=== PATIENT | female | born 1960 | race Hispanic/Latino ===

== ENCOUNTER 2018-01-07 11:49 | Inpatient (IN) | payer OTHER ==
[2018-01-07 13:00] LABS: Absolute Lymphocytes (CBC) 1.2 K/uL (0.7-4.9); Absolute Monocytes 0.7 K/uL (0.1-1.3); Absolute Neutrophil 10.3 K/uL (1.8-8.0); Basophils % 0.4 % (0-1.3); Eosinophils % 0.8 % (0-4.4); Lymphocytes % 9.4 % (15.3-44.8); MCV 105.8 fL (80-100); MPV 6.8 fL (7.6-11.3); Monocytes % 5.6 % (3.3-12.3); RBC Red Blood Cell Count 2.37 M/uL (3.86-4.86)
[2018-01-07 13:06] LABS: Protime INR 1.23
--- NOTE | 2018-01-07 13:09 | RAD REPORT ---
EXAM DESCRIPTION: RAD - Chest Single View - 01/07/2018 12:54 pm CLINICAL HISTORY: Two week history of shortness of breath COMPARISON: None. TECHNIQUE: AP portable chest image was obtained 1249 hours . FINDINGS: Lungs are clear. Heart and vasculature are normal. No measurable pleural effusion and no p neumothorax. No gross bony abnormality seen. No acute aortic findings suspected. IMPRESSION: No acute cardiopulmonary process.
[2018-01-07 13:26] LABS: ALT/SGPT 14 U/L (12-78); AST/SGOT 17 U/L (15-37); Alkaline Phosphatase 96 U/L (45-117); BUN Blood Urea Nitrogen 47 mg/dL (7-18); Bilirubin Direct < 0.1 mg/dL (0-0.2); Bilirubin Total 0.8 mg/dL (0.2-1.0); Creatine Phosphokinase 49 U/L (26-192); Glucose Level 102 mg/dL (74-106); Magnesium 2.5 mg/dL (1.8-2.4); NT PRO-BNP 4718 pg/mL (<125); Potassium 4.4 mmol/L (3.5-5.1); Protein, Total 7.7 g/dL (6.4-8.2); Sodium Level 139 mmol/L (136-145); Troponin (Emerg Dept Use Only) < 0.02 ng/mL (0.0-0.045)
[2018-01-07 13:38] LABS: Bicarbonate 9 mmol/L (21-32)
[2018-01-07] MEDS ORDERED: MORPHINE 4 MG/ML SYR ONE (13:59)
[2018-01-07] MEDS ORDERED: ONDANSETRON 4 MG/2 ML VIAL ONE (13:59)
[2018-01-07] MEDS ORDERED: NA CHLORIDE 0.9% 500 ML ONE (14:45)
--- NOTE | 2018-01-07 14:47 | EDPHYS ---
Physician Documentation [facility] Name: Trixie Richardson Age: 57 yrs Sex: Female : 1960 Arrival Date: 01/07/2018 Time: 11:53 Bed 7 Private MD: None, None ED Physician Eugenio Siegel HPI: 01/07 12:19 This 57 yrs old Female presents to ER via Wheelchair with complaints of ma2 Shortness Of Breath, Nausea, Back Pain. 12:19 The patient has shortness of breath at rest. Onset: The symptoms/episode began/occurred ma2 gradually, 4 week(s) ago. Duration: The symptoms are continuous. The patient's shortness of breath is aggravated by coughing, is alleviated by. Associated signs and symptoms: Pertinent negatives:. Severity of symptoms: At their worst the symptoms were severe Pain is currently a 10 / 10. The patient has not experienced similar symptoms in the past. hx of HTN here with sob and chest pain that radiate to back, getting worse, . Historical: - Allergies: 11:56 Codeine; la1 - PMHx: 11:56 Hypertension; la1 - PSHx: 11:57 ; right knee; la1 - Immunization history:: Adult Immunizations up to date. - Social history:: Smoking status: Patient uses tobacco products, denies chronic smoking, but will smoke occasionally, Patient/guardian denies using alcohol, street drugs, The patient lives with family. - Ebola Screening: : No symptoms or risks identified at this time. - Family history:: not pertinent. - Hospitalizations: : No recent hospitalization is reported. ROS: 12:19 Constitutional: Negative for fever, chills, and weight loss, Eyes: Negative for injury, ma2 pain, redness, and discharge. 12:36 Constitutional: Positive for Negative for ma2 12:36 Eyes: Negative for acute changes. 12:36 Neck: Negative for injury or acute deformity, mass, rash, swollen nodes, bony tenderness. 12:36 Cardiovascular: Positive for chest pain, sob, Negative for edema, palpitations. 12:36 Cardiovascular: Positive for 12:36 Respiratory: Positive for Negative for cough, dyspnea on exertion, pleurisy, sputum production, acute changes. 12:36 All other systems are negative. Exam: 12:36 Constitutional: This is a well developed, well nourished patient who is awake, alert, ma2 and in no acute distress. Head/Face: Normocephalic, atraumatic. Chest/axilla: Normal chest wall appearance and motion. Nontender with no deformity. No lesions are appreciated. Cardiovascular: Regular rate and rhythm with a normal S1 and S2. No gallops, murmurs, or rubs. Normal PMI, no JVD. No pulse deficits. Respiratory: Lungs have equal breath sounds bilaterally, clear to auscultation and percussion. No rales, rhonchi or wheezes noted. No increased work of breathing, no retractions or nasal flaring. Abdomen/GI: Soft, non-tender, with normal bowel sounds. No distension or tympany. No guarding or rebound. No evidence of tenderness throughout. MS/ Extremity: Pulses equal, no cyanosis. Neurovascular intact. Full, normal range of motion. Neuro: Awake and alert, GCS 15, oriented to person, place, time, and situation. Cranial nerves II-XII grossly intact. Motor strength 5/5 in all extremities. Sensory grossly intact. Cerebellar exam normal. Normal gait. 12:36 Constitutional: The patient appears alert, in obvious pain. Vital Signs: 11:56 BP 147 / 74; Pulse 101; Resp 22; Temp 98.3; Pulse Ox 99% on R/A; Weight 53.52 kg; la1 Height 5 ft. 1 in. (154.94 cm); 13:01 BP 146 / 77; Pulse 82; Resp 20; Pulse Ox 100% on 2 lpm NC; aj 14:37 BP 137 / 74; Pulse 97; Resp 26; Pulse Ox 100% on R/A; aj 15:00 BP 129 / 75; Pulse 79; Resp 16 S; Pulse Ox 100% on R/A; jl7 15:30 BP 137 / 76; Pulse 82; Resp 16 S; Pulse Ox 100% on R/A; jl7 16:00 BP 125 / 67; Pulse 83; Resp 16 S; Pulse Ox 100% on R/A; jl7 16:25 BP 120 / 65; Pulse 89; Resp 16 S; Pulse Ox 100% on R/A; jl7 11:56 Body Mass Index 22.30 (53.52 kg, 154.94 cm) la1 MDM: 11:58 Patient medically screened. ma2 12:36 Differential diagnosis: Anemia CHF exacerbation, Myocardial Infarction Pneumothorax ma2 pulmonary edema, Pulmonary Embolism Unstable Angina. 14:41 Data reviewed: vital signs, nurses notes, lab test result(s), radiologic studies. ma2 Counseling: I had a detailed discussion with the patient and/or guardian regarding: the historical points, exam findings, and any diagnostic results supporting the discharge/admit diagnosis, the presence of at least one elevated blood pressure reading (>120/80) during this emergency department visit, the need for outpatient follow up. Response to treatment: the patient's symptoms have markedly improved after treatment. ED course: has ARF, CXR unremarkable not volume overloaded VS wnl, will admit to hospitalist discussed with air brake adjuster Dr. Villeda and she will see her tomorrow, she recommends IVF NS \T\ 50 cc/h. 01/07 12:28 Order name: Basic Metabolic Panel; Complete Time: 14:04 [facility] 01/07 14:29 Interpretation: Abnormal. [facility] 01/07 12:28 Order name: CBC with Diff; Complete Time: 14:04 [facility] 01/07 12:28 Order name: Ckmb; Complete Time: 14:04 [facility] 01/07 12:28 Order name: CPK; Complete Time: 14:04 [facility] 01/07 12:28 Order name: LFT's; Complete Time: 14:04 [facility] 01/07 12:28 Order name: Magnesium; Complete Time: 14:04 [facility] 01/07 12:28 Order name: NT PRO-BNP; Complete Time: 14:04 [facility] 01/07 12:28 Order name: PT-INR; Complete Time: 14:04 [facility] 01/07 12:28 Order name: Ptt, Activated; Complete Time: 14:04 [facility] 01/07 12:28 Order name: Troponin (emerg Dept Use Only); Complete Time: 14:04 [facility] 01/07 12:28 Order name: XRAY Chest (1 view); Complete Time: 14:04 [facility] 01/07 14:11 Order name: Thorax Wo Con; Complete Time: 15:28 EDMS 01/07 12:28 Order name: EKG; Complete Time: 12:29 [facility] 01/07 12:28 Order name: Cardiac monitoring; Complete Time: 12:31 mi2 09/16 12:28 Order name: EKG - Nurse/Tech; Complete Time: 14:42 [facility] 01/07 12:28 Order name: IV Saline Lock; Complete Time: 14:03 [facility] 01/07 12:28 Order name: Labs collected and sent; Complete Time: 14:03 [facility] 01/07 12:28 Order name: O2 Per Protocol; Complete Time: 12:31 [facility] 01/07 12:28 Order name: O2 Sat Monitoring; Complete Time: 12:31 mi2 Administered Medications: 13:58 Drug: morphine 4 mg Route: IVP; Site: right antecubital; aj 16:27 Follow up: Response: Pain is decreased aj 13:58 Drug: Zofran 4 mg Route: IVP; Site: right antecubital; aj 16:27 Follow up: Response: Nausea is decreased aj 14:45 Drug: NS 0.9% 1000 ml Route: IV; Rate: 50 ml/hr; Site: right antecubital; Disposition: 01/07/18 14:46 Hospitalization ordered by Damien Perez for Inpatient Admission. Preliminary diagnosis is Acute kidney failure. - Bed requested for Telemetry/MedSurg (Inpatient). - Status is Inpatient Admission. aj - Condition is Stable. - Problem is new. - Symptoms are unchanged. UTI on Admission? No Signatures: Dispatcher [employer] Kathe Cartagena RN RN aj Attema, Lee, RN RN la1 Gallardo, Ana ag Alzahri, Mohammad, MD MD ma2 Corrections: (The following items were deleted from the chart) 14:11 12:29 Chest Angio+CT.RAD.BRZ ordered. [facility] 14:11 12:29 Neck Angio+CT.RAD.BRZ ordered. [facility] 17:05 14:46 Hospitalization Ordered by Damien Perez MD for Inpatient Admission. Preliminary ag diagnosis is Acute kidney failure. Bed requested for Telemetry/MedSurg (Inpatient). Status is Inpatient Admission. Condition is Stable. Problem is new. Symptoms are unchanged. UTI on Admission? No. ma2 18:07 17:05 01/07/2018 14:46 Hospitalization Ordered by Damien Perez MD for Inpatient aj Admission. Preliminary diagnosis is Acute kidney failure. Bed requested for Telemetry/MedSurg (Inpatient). Status is Inpatient Admission. Condition is Stable. Problem is new. Symptoms are unchanged. UTI on Admission? No. ag
--- NOTE | 2018-01-07 14:47 | ER ---
Nurse's Notes [facility] Name: Trixie Richardson Age: 57 yrs Sex: Female : 1960 Arrival Date: 01/07/2018 Time: 11:53 Bed 7 Private MD: None, None Diagnosis: Acute kidney failure Presentation: 01/07 11:55 Presenting complaint: Patient states: SOB of breath for the last 2 weeks and upper back la1 pain for about 1.5 months, pt tachypneic in triage. Transition of care: patient was not received from another setting of care. Onset of symptoms was January 07, 2018. Risk Assessment: Do you want to hurt yourself or someone else? Patient reports no desire to harm self or others. Initial Sepsis Screen: Does the patient meet any 2 criteria? Yes Does the patient have a suspected source of infection? No. Patient's initial sepsis screen is negative. Care prior to arrival: None. 11:55 Method Of Arrival: Wheelchair la1 11:55 Acuity: CLEMENTE 3 la1 Historical: - Allergies: 11:56 Codeine; la1 - PMHx: 11:56 Hypertension; la1 - PSHx: 11:57 ; right knee; la1 - Immunization history:: Adult Immunizations up to date. - Social history:: Smoking status: Patient uses tobacco products, denies chronic smoking, but will smoke occasionally, Patient/guardian denies using alcohol, street drugs, The patient lives with family. - Ebola Screening: : No symptoms or risks identified at this time. - Family history:: not pertinent. - Hospitalizations: : No recent hospitalization is reported. Screenin:08 Abuse screen: Denies threats or abuse. Denies injuries from another. Nutritional aj screening: No deficits noted. Tuberculosis screening: No symptoms or risk factors identified. Fall Risk None identified. Assessment: 12:05 General: Appears in no apparent distress. uncomfortable, Behavior is calm, cooperative, aj appropriate for age. Pain: Complains of pain in left mid back. Neuro: Level of Consciousness is awake, alert, obeys commands, Oriented to person, place, time, situation, Appropriate for age. Cardiovascular: Capillary refill < 3 seconds in bilateral fingers Patient's skin is warm and dry. Rhythm is regular. Respiratory: Airway is patent Respiratory effort is even, labored, Respiratory pattern is symmetrical, tachypnea Breath sounds are clear bilaterally. the patient has moderate shortness of breath. Derm: Skin is intact, is healthy with good turgor, Skin is pink, warm \T\ dry. normal. 14:00 Reassessment: Patient appears in no apparent distress at this time. No changes from aj previously documented assessment. Patient and/or family updated on plan of care and expected duration. Pain level reassessed. Patient is alert, oriented x 3, equal unlabored respirations, skin warm/dry/pink. Patient states feeling better. Patient states symptoms have improved. 16:30 Reassessment: Patient appears in no apparent distress at this time. No changes from aj previously documented assessment. Patient and/or family updated on plan of care and expected duration. Pain level reassessed. Patient is alert, oriented x 3, equal unlabored respirations, skin warm/dry/pink. Patient resting comfortably in bed with eyes closed. 17:38 Reassessment: Patient appears in no apparent distress at this time. No changes from aj previously documented assessment. Patient and/or family updated on plan of care and expected duration. Pain level reassessed. Patient is alert, oriented x 3, equal unlabored respirations, skin warm/dry/pink. Resting comfortably in bed, provided with meal tray. Patient states feeling better. Patient states symptoms have improved. Vital Signs: 11:56 BP 147 / 74; Pulse 101; Resp 22; Temp 98.3; Pulse Ox 99% on R/A; Weight 53.52 kg; la1 Height 5 ft. 1 in. (154.94 cm); 13:01 BP 146 / 77; Pulse 82; Resp 20; Pulse Ox 100% on 2 lpm NC; aj 14:37 BP 137 / 74; Pulse 97; Resp 26; Pulse Ox 100% on R/A; aj 15:00 BP 129 / 75; Pulse 79; Resp 16 S; Pulse Ox 100% on R/A; jl7 15:30 BP 137 / 76; Pulse 82; Resp 16 S; Pulse Ox 100% on R/A; jl7 16:00 BP 125 / 67; Pulse 83; Resp 16 S; Pulse Ox 100% on R/A; jl7 16:25 BP 120 / 65; Pulse 89; Resp 16 S; Pulse Ox 100% on R/A; jl7 11:56 Body Mass Index 22.30 (53.52 kg, 154.94 cm) la1 ED Course: 11:53 Patient arrived in ED. mr 11:54 None, None is Private Physician. mr 11:56 Triage completed. la1 11:57 Arm band placed on right wrist. la1 11:58 Eugenio Siegel MD is Attending Physician. ma2 12:05 Kathe Nguyen RN is Primary Nurse. aj 12:08 Patient has correct armband on for positive identification. Placed in gown. Bed in low aj position. Call light in reach. Side rails up X 1. Adult w/ patient. Pulse ox on. NIBP on. 12:31 Oxygen administration via nasal cannula \T\ 2L/min Response to oxygen therapy: symptoms aj improved. 12:46 Inserted saline lock: 18 gauge in right antecubital area, using aseptic technique. mb4 Blood collected. 12:53 sent to lab. mb4 12:54 X-ray completed. Portable x-ray completed in exam room. Patient tolerated procedure tm4 poorly. 12:54 XRAY Chest (1 view) In Process Unspecified. EDMS 13:29 Note: Per Dr. Siegel does not want to wait on radiology labs. sj 14:14 Thorax Wo Con In Process Unspecified. EDMS 14:43 EKG done, by ED staff, reviewed by Eugenio Siegel MD. jl7 14:44 Damien Perez MD is Hospitalizing Provider. ma2 17:15 Diet tray given. mb4 17:45 Report given to Tootie GO. aj 18:06 No provider procedures requiring assistance completed. Patient admitted, IV remains in aj place. Administered Medications: 13:58 Drug: morphine 4 mg Route: IVP; Site: right antecubital; aj 16:27 Follow up: Response: Pain is decreased aj 13:58 Drug: Zofran 4 mg Route: IVP; Site: right antecubital; aj 16:27 Follow up: Response: Nausea is decreased aj 14:45 Drug: NS 0.9% 1000 ml Route: IV; Rate: 50 ml/hr; Site: right antecubital; aj Outcome: 14:46 Decision to Hospitalize by Provider. ma2 18:06 Admitted to Med/surg accompanied by nurse, via wheelchair, room 218, with chart, Report aj called to Tootie 18:06 Condition: good 18:06 Instructed on the need for admit. 18:07 Patient left the ED. aj Signatures: Dispatcher [employer] Kathe Ochoa RN RN aj Rivera, Maria mr Jones, Alesha Vieyra4 Guanakito Santos RN RN la1 Karina Marshall RN RN jl7 Eugenio Siegel MD MD ma2 Ewelina Crum 4
--- NOTE | 2018-01-07 15:03 | RAD REPORT ---
EXAM DESCRIPTION: CT - Thorax Wo Con - 01/07/2018 2:14 pm CLINICAL HISTORY: Shortness of breath, back pain, possible dissection COMPARISON: None. TECHNIQUE: Axial 5 mm thick images of the neck and chest were obtained without IV contrast. Contrast was withheld due to abnormal renal function All CT scans are performed using dose optimization technique as appropriate and may include automated exposure control or mA/KV adjustment according to patient size. FINDINGS: No suspicious mass and no infiltrate of the lung parenchyma. There is a trace amount of st randing in the posterior gutter on the left. No pleural effusion and no pneumothorax. No abnormal mediastinal or hilar masses or lymphadenopathy seen. No gross aortic or pulmonary artery finding suspected. No pericardial thickening or effusion. In the anterior left chest, there is a 5 x 3 centimeter chest wall soft tissue mass that involves the chest wall and anterior left sixth rib. No other rib lesion or chest wall mass identifiable. No axil poncho lymphadenopathy. No mass or suspicious finding in the breast tissue. Imaging extended into the neck. No mass or abnormal lymphadenopathy. No suspicious soft tissue findin g. IMPRESSION: Approximately 3 x 5 centimeter soft tissue mass involving the left anterior chest wall a nd anterior left sixth rib. This has the appearance of a malignant mass, most likely metastatic. No other mass, lymphadenopathy or suspicious finding on noncontrast imaging of the neck and chest.
[2018-01-07] MEDS ORDERED: ONDANSETRON 4 MG/2 ML VIAL IV PRN (16:00)
[2018-01-07] MEDS: D5W 1,000 ML with NA BICARB 8.4% 100 MEQ IV SCH ×2 (18:27)
[2018-01-07] MEDS: MORPHINE 2 MG/ML SYR IV PRN (18:43)
[2018-01-07] MEDS: CARVEDILOL 6.25 MG TAB PO SCH (21:22)
[2018-01-07] MEDS: LORazepam 2 MG/ML VIAL IV PRN ×2 (21:30→21:32)
--- NOTE | 2018-01-08 04:46 | HP ---
Date of Admission: 01/07/2018 Primary Care Physician: None. Chief Complaint: Pain in her ribs. History Of Present Illness: The patient is a 57-year-old female with past medical history of hyperte nsion, on Coreg, comes in with shortness of breath, chest wall pain, seen by Dr. Steele, found to have a boil and now appearing with severe pain, not able to get comfortable. The patient was given Tylen ol No. 3 with Codeine, which is not working. The patient also is having difficulty taking deep breat hs. The patient's symptoms are constant, moderately progressive, and nonradiating. The patient sylvia es any recent trauma. The patient also had a mammogram done on 12/13/2017, which was negative for an y breast masses. The patient comes into the ER. Her workup shows acidosis, bicarb is 9, the creatin ine is elevated at 3.6. White blood cell count is 12.3. The patient does report taking multiple NSA IDs for the past week or so due to her pain. Imaging studies including CT of the chest, showed a 5 x 3 cm chest soft tissue mass involving the anterior left chest and left sixth rib, most likely metast atic malignant mass. Neck imaging was also done, which showed lymphadenopathy, but no mass. [facility] was then referred for admission. Past Medical History: Hypertension. Past Surgical History: , knee surgery. Medications: Coreg. Allergies: NO KNOWN DRUG ALLERGIES. Family History: Breast cancer, cirrhosis of the liver, [place]. Social History: The patient used to smoke 2 to 4 cigarettes per day for the past 20 years. Quit [employer] 2 weeks ago. Alcohol, the patient drinks 3 beers per day. Has been drinking for a significant amount of time. The patient is . No illicit drug use. Review of Systems: An 11-point system reviewed, negative except as per HPI. Physical Examination: Vital Signs: Blood pressure 147/74, pulse 101, respirations 22, temperature 98.3, O2 99% on room air . General: Awake, alert, oriented x3. Some mild distress, appears older than stated age female. HEENT: Normocephalic atraumatic. PERRLA. EOMI. Dry mucous membranes. Oropharynx is clear. Poor dentition. Neck: Supple. No JVD. Trachea midline. CV: S1, S2. No murmurs. Regular rate and rhythm. Peripheral pulses present. Respiratory: Diminished breath sounds. No wheezing or stridor. Gastrointestinal: Abdomen is soft, nontender, nondistended. Positive bowel sounds. No guarding or rigidity. Extremities: No clubbing, cyanosis, or edema. Neuro: Cranial nerves 2 through 12 intact grossly. No focal neurological deficit. Speech is normal . Psych: Mood is depressed. Affect is congruent with mood. Insight and judgment are fair. Imaging Studies: CT chest shows 5 x 3 cm soft tissue mass involving the left anterior chest wall and anterior left sixth rib. Appearance of a malignant mass, most likely metastatic. Chest x-ray shows no acute cardiopulmonary process. Laboratory Data: WBC 12.3, H and H 8.5 and 25, MCV 105.8, platelets 343. INR 1.23. Sodium 139, pot assium 4.4, chloride 116, CO2 9, BUN is 47, creatinine 3.6, glucose 102, calcium 8.3, magnesium 2.5. BNP 4718. Assessment And Plan: A 57-year-old female with: 1.Acute kidney injury, may be prerenal azotemia or acute tubular necrosis, recent significant NSAID use. 2.Metabolic acidosis. We will start on IV fluids with bicarb. 3.Soft tissue chest wall mass, 5 x 3 cm, likely malignant, unclear etiology. We will need biopsy an d further diagnosis. The patient had mammogram done on 12/13/2017, which was negative for any breast mass. CT of the neck showed lymphadenopathy, but no mass. 4.Nicotine dependence with cigarette smoking, recently quit. 5.Alcohol dependency. We will place on Ativan p.r.n. for withdrawal symptoms, folate, and vitamin B 12. 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 7.Essential hypertension. We will resume home medications. Plan: Admit to Med-Surg, place as an inpatient. /DAVID Voice ID: [id number]
[2018-01-08 05:21] LABS: Absolute Lymphocytes (CBC) 1.9 K/uL (0.7-4.9); Absolute Monocytes 1.3 K/uL (0.1-1.3); Absolute Neutrophil 7.9 K/uL (1.8-8.0); Basophils % 0.5 % (0-1.3); Eosinophils % 2.9 % (0-4.4); Hematocrit 22.5 % (36.0-45.0); Lymphocytes % 16.6 % (15.3-44.8); MCH 36.6 pg (27.0-35.0); MCV 106.5 fL (80-100); RBC Red Blood Cell Count 2.11 M/uL (3.86-4.86)
[2018-01-08] MEDS: D5W 1,000 ML with NA BICARB 8.4% 100 MEQ IV SCH ×4 (05:28→18:00)
[2018-01-08 06:20] LABS: Platelet Estimate ADEQ; Urine White Blood Cell Casts OK
[2018-01-08 06:21] LABS: Blood Morphology Comment NOT SEEN (NOT SEEN); Macrocytosis 1+
[2018-01-08] MEDS: ACETAMINOPHEN 500 MG TAB PO PRN (06:21)
[2018-01-08 06:23] LABS: Albumin 2.7 g/dL (3.4-5.0); Bilirubin Total 0.6 mg/dL (0.2-1.0); Folic Acid, (Folate) 8.4 ng/mL (3.1-17.5); Potassium 3.5 mmol/L (3.5-5.1); Protein, Total 6.8 g/dL (6.4-8.2)
--- NOTE | 2018-01-08 06:52 | EKG ---
Test Date: 2018-01-07 Test Time: 14:42:10 Advertising Account Representative: JACQUELYN MEASUREMENT RESULTS: Intervals: Rate: 85 MI: 114 QRSD: 78 QT: 394 QTc: 468 [place]: P: 21 MI: 114 QRS: 2 T: 34 INTERPRETIVE STATEMENTS: Normal sinus rhythm Normal ECG No previous ECG available for comparison Electronically Signed On 01-08-18 06:51:01 CDT by Angelo Cowan
[2018-01-08] MEDS: CARVEDILOL 6.25 MG TAB PO SCH ×2 (09:00→20:42)
[2018-01-08] MEDS: FOLIC ACID 1 MG TABLET PO SCH (09:00)
[2018-01-08] MEDS: THIAMINE HCL 100 MG TABLET PO SCH (09:00)
[2018-01-08] MEDS: MORPHINE 2 MG/ML SYR IV PRN ×3 (12:21→22:20)
[2018-01-08 12:43] LABS: Hematocrit 22.3 % (36.0-45.0)
--- NOTE | 2018-01-08 15:36 | CON ---
Date of Consultation: 01/08/2018 Reason: Left chest wall mass. History Of Present Illness: The patient is a 57-year-old female, who has been following as an outpat ient with the left-sided localized chest pain. In my office, on physical exam, there was some fullne ss below her left breast and some fullness in her left supraclavicular region. I decided to begin he r workup first of all with mammogram as she has not had 1 in a long time and a chest x-ray, which wer e essentially negative. Then, I had scheduled a CT of the neck and chest for the patient, however, b ecause of her anxiety and underlying issues, she did not do the CT of the neck and chest. However, s he continued to have pain, and I advised her that if I do not have a diagnosis I would not be able to treat her. So, she was advised from my office to either go to go ahead and reschedule the CAT scan o r go to her PCP for further management. Her pain got worse in the left chest wall with some shortnes s of breath, and she came to the emergency room last night and finally had the chest CT done, which s howed a mass in her left chest wall and today, I am consulted. She is awake, alert, feels a little b it better. On her workup, she has acute renal failure, significant anemia, and a mass in her left 6t h rib, which potentially could be metastatic disease. No sore throat, runny nose, cough, headaches, or dizziness. No fever or chills. She does drink every day and is a smoker. No changes in bowel meeks bits. Review of Systems: Otherwise unremarkable. Past Medical History: Hypertension and questionable history of cirrhosis. Past Surgical History: Knee surgery and . Medications: Include Coreg. Allergies: NO ALLERGIES. Social History: The patient does smoke every day, about 4 cigarettes per day. She quit 2 weeks ago, and she drinks 3-4 beers a day. Family History: Noncontributory. Review of Systems: Otherwise unremarkable. Physical Examination: Vital signs: Currently stable. She is afebrile. General: She is awake, alert, and oriented x3. Head and neck: Cranial nerves 2 through 12 grossly within normal limits. Some fullness in the left s upraclavicular region. No other masses. No JVD. Throat clear. Neck is supple. Chest: Clear. Left chest wall underneath the breast, which was examined in the office revealed a qu estionable tender mass. Heart: S1, S2. ABDOMEN: Soft. Extremities: Neurovascularly intact. Neuro: Nonfocal. Diagnostic Data: Her white count is 11.5. H and H are 7.7 and 22.5. MCV is 106.5. INR is 1.23. C hemistry shows BUN 54, creatinine of 4. She was very acidotic with CO2 of 9 on admissions. Today sh e is 15. CT of the chest reviewed with the radiologist shows a 3 x 5 cm soft tissue mass involving t he left anterior chest wall and anterior left 6th rib, appearance of a malignant mass, most likely me tastatic. Assessment: A 57-year-old female with left chest wall mass, significant anemia, acute renal insuffic iency. Recommendation: Would be to go ahead and get a nephrology consultation. I will go and order a CT of the abdomen and pelvis, See if we can find the primary if this indeed is a metastatic lesion, and I have discussed with the radiologist regarding a CT-guided biopsy of this left chest wall mass, and we will arrange for that tomorrow. Plan of care discussed in detail with the patient and the family, a nd I will contact Dr. Perez and discuss the plan with him as well. We will follow this patient while in the hospital. KINJAL/DAVID Voice ID: [id number] Report ID: [id number]
--- NOTE | 2018-01-08 17:18 | RAD REPORT ---
EXAM DESCRIPTION: CT - Abdomen Pelvis Wo Contrast - 01/08/2018 4:44 pm CLINICAL HISTORY: Chest wall mass suspicious for metastatic disease, abdominal pain COMPARISON: None. TECHNIQUE: Axial [address] imaging of the abdomen and pelvis was performed without IV contrast. No IV contrast was given because of allergy, abnormal renal function, patient refusal or physician re quest. No oral contrast was given. All CT scans are performed using dose optimization technique as appropriate and may include automated exposure control or mA/KV adjustment according to patient size. FINDINGS: Lung base findings are detailed on prior CT chest examination. Liver size is normal. Assessment is limited in the absence of IV contrast. In the posterior mid right lobe there is a 15 millimeter area of diminished attenuation. Focal lesion is possible. Mild splenom egaly is present. No pancreatic abnormality suspected on noncontrast imaging. Gallbladder is distende d. Gallstones can be occult. No biliary tree dilatation. Right kidney has a normal contour. There is a lobulated contour to the upper pole left kidney which c ould indicate cysts or possible scarring from prior ischemic or infectious insult. Significant bilate ral hydronephrosis is present, right greater than left. There is no obstructing calculus. Dilatation extends to each UVJ. There is an 8 x 6 centimeter soft tissue mass in the region of the cervix and th e vaginal vault. This appears to invade or at least at extrinsic mass effect on the bladder. This lik chiki invades or obstructs each UVJ causing the hydronephrosis. There is mild congestion and edema in t he fat adjacent to this suspected cervical carcinoma. No significant adrenal finding. Isodense renal masses and pyelonephritis cannot be excluded in the ab sence of IV contrast. No dilated bowel loops or bowel wall thickening. No free air, free fluid or inflammatory stranding. N o omental thickening. No bulky lymphadenopathy. No suspicious bony findings. IMPRESSION: Suspected cervical carcinoma. There is a large 8 x 6 centimeter mass in the cervix and d eep vaginal vault region. Mass either either invades or causes extrinsic compression of the bladder base and each UVJ. Patient has significant bilateral hydronephrosis. No ascites or omental thickening. No bulky lymphadenopathy. Lung base and chest wall findings are detailed on separate CT chest report. Full assessment is limited is the absence of IV contrast.
--- NOTE | 2018-01-08 17:21 | PN ---
Date of Progress Note: 01/08/2018 Subjective: The patient seen and examined. Chart reviewed and case discussed with RN and Dr. Steele. The patient's family at the bedside, treatment plan explained, all questions answered. She states her pain is still present, has some difficulty getting comfortable. No shortness of breath. Review of Systems: Negative except as above. Medications: List reviewed. Physical Examination: Vital Signs: Temperature 98.1, heart rate 85, blood pressure 145/67, respirations 18, O2 100% on krystal m air. General: Awake, alert, oriented x3, in some mild distress due to pain. CV: S1, S2. No murmurs. Regular rate and rhythm. Peripheral pulses present. Respiratory: Moving air well bilaterally. No wheezing. Gastrointestinal: Abdomen is soft, nontender, nondistended. Positive bowel sounds. Extremities: No clubbing, cyanosis, edema. Neurologic: Nonfocal. Skin: No rashes. Normal skin turgor. Musculoskeletal: Sixth rib anterior chest wall tenderness to palpation. Laboratory Data: Sodium 137, potassium 3.5, chloride 109, CO2 15, BUN 54, creatinine 4, glucose 96, calcium 8.2, vitamin B12 1013, folate 8.4. WBC 11.5, H and H 7.7, 22.5, platelets 282. Assessment And Plan: A 57-year-old female with: 1.Acute kidney injury secondary to possible acute tubular necrosis. Has been using significant NSAI Ds over the past week. Possible prerenal azotemia. Creatinine function is worsening. Dr. Christiana spears s on board. 2.Metabolic acidosis, improving. Continue IV fluids with bicarb. 3.Soft tissue wall mass 5 x 3 cm, likely malignant unclear primary. Biopsies have been set up for t omorrow, CT guided with Radiology. Mammogram on 12/11/2017 is negative for breast mass. CT of the c hest shows some lymphadenopathy in the neck, but no mass. May be squamous cell primary. Due to the patient's lack of outpatient followup and noncompliance we will obtain a CT of abdomen and pelvis to further investigate source of mass. The patient had refused outpatient CT of neck and chest. We anne-marie l continue pain medications. 4.Nicotine dependence with cigarette smoking, quit about 2 weeks ago. 5.Alcohol dependency. Continue Ativan p.r.n. Monitor for withdrawal symptoms. 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 Vitamin B12 and folate normal. 7.Essential hypertension. Resume home medications as appropriate. 8.Gastrointestinal and deep venous thrombosis prophylaxis. Continue SCDs and PPI. No chemical anti coagulation due to invasive procedure and overall poor prognosis. ANIA Voice ID: [id number] Report ID: [id number]
[2018-01-08 18:21] LABS: Hematocrit 22.5 % (36.0-45.0)
[2018-01-08] MEDS ORDERED: FUROSEMIDE 20 MG/ 2ML VIAL IV ONE (19:00)
[2018-01-08] MEDS ORDERED: EPOETIN ALFA 10,000 UNIT/ML SQ ONE (20:53)
[2018-01-08] MEDS ORDERED: POTASSIUM CL SA 10 MEQ TAB PO ONE (20:53)
--- NOTE | 2018-01-08 20:58 | P.CNS ---
Date of Consult: 01/08/18 Reason for Consult: LAW Requesting Physician: Damien Perez Chief Complaint: Dyspnea History of Present Illness: 57 yo HF HTN presented to the ER with moderate, progressive dyspnea in the setting of multiple abscesses and a chest mass. She was treated for a painful boil over the past months and started taking Ibuprofen 4 tabs four times per day for the last four weeks due to the pain. She was given Tylenol #3 but it did not control the pain. No alleviating fx. Good urine output. No history of CKD. The patient is a 57-year-old female with past medical history of hypertension, on Coreg, comes in with shortness of breath, chest wall pain, seen by Dr. Steele , found to have a boil and now appearing with severe pain, not able to get comfortable. The patient was given Tylenol No. 3 with Codeine, which is not working. The patient also is having difficulty taking deep breaths. The patient's symptoms are constant, moderately progressive, and nonradiating. The patient denies any recent trauma. The patient also had a mammogram done on , which was negative for any breast masses. The patient comes into the ER. Her workup shows acidosis, bicarb is 9, the creatinine is elevated at 3.6. White blood cell count is 12.3. The patient does report taking multiple NSAIDs for the past week or so due to her pain. Imaging studies including CT of the chest, showed a 5 x 3 cm chest soft tissue mass involving the anterior left chest and left sixth rib, most likely metastatic malignant mass. Neck imaging was also done, which showed lymphadenopathy, but no mass. The patient was then referred for admission. 12:19 This 57 yrs old Female presents to ER via Wheelchair with complaints of ma2 Shortness Of Breath, Nausea, Back Pain. 12:19 The patient has shortness of breath at rest. Onset: The symptoms/episode began/occurred ma2 gradually, 4 week(s) ago. Duration: The symptoms are continuous. The patient's shortness of breath is aggravated by coughing, is alleviated by. Associated signs and symptoms: Pertinent negatives:. Severity of symptoms: At their worst the symptoms were severe Pain is currently a 10 / 10. The patient has not experienced similar symptoms in the past. hx of HTN here with sob and chest pain that radiate to back, getting worse, Allergies codeine Adverse Reaction (Verified 01/07/18 18:16) vomiting Home medications list reviewed: Yes Home Medications: Carvedilol 6.25 mg PO BID 01/07/18 - Past Medical/Surgical History Diabetic: No -: HTN -: Right knee sx -: C. Sec. - Family History Father Medical History: Heart disease Mother Notes: cirrhosis Sister Medical History: Cancer Notes: breast cancer - Social History Smoking Status: Current some day smoker Alcohol use: Yes CD- Drugs: No Caffeine use: Yes Place of Residence: Home Review of Systems 10-point ROS is otherwise unremarkable General: Weakness, Malaise Respiratory: SOB with Excertion Musculoskeletal: Neck Pain Physical Examination Temp Pulse Resp BP Pulse Ox 98.6 F 76 16 155/76 H 99 01/08/18 20:00 01/08/18 20:42 01/08/18 20:00 01/08/18 20:42 01/08/18 20:00 General: In no apparent distress, Oriented x3, Cooperative HEENT: Atraumatic Neck: Supple Respiratory: Clear to auscultation bilaterally Cardiovascular: No edema, Regular rate/rhythm Gastrointestinal: Soft and benign, Non-distended Musculoskeletal: No clubbing, No contractures Integumentary: No rashes, No cyanosis Neurological: Normal speech Blood work reviewed in the chart. Hgb 7.7; Cr 4 Imagings Data: EXAM DESCRIPTION: CT - Thorax Wo Con - 01/07/2018 2:14 pm CLINICAL HISTORY: Shortness of breath, back pain, possible dissection COMPARISON: None. TECHNIQUE: Axial 5 mm thick images of the neck and chest were obtained without IV contrast. Contrast was withheld due to abnormal renal function All CT scans are performed using dose optimization technique as appropriate and may include automated exposure control or mA/KV adjustment according to patient size. FINDINGS: No suspicious mass and no infiltrate of the lung parenchyma. There is a trace amount of stranding in the posterior gutter on the left. No pleural effusion and no pneumothorax. No abnormal mediastinal or hilar masses or lymphadenopathy seen. No gross aortic or pulmonary artery finding suspected. No pericardial thickening or effusion. In the anterior left chest, there is a 5 x 3 centimeter chest wall soft tissue mass that involves the chest wall and anterior left sixth rib. No other rib lesion or chest wall mass identifiable. No axillary lymphadenopathy. No mass or suspicious finding in the breast tissue. Imaging extended into the neck. No mass or abnormal lymphadenopathy. No suspicious soft tissue finding. IMPRESSION: Approximately 3 x 5 centimeter soft tissue mass involving the left anterior chest wall and anterior left sixth rib. This has the appearance of a malignant mass, most likely metastatic. No other mass, lymphadenopathy or suspicious finding on noncontrast imaging of the neck and chest. EXAM DESCRIPTION: CT - Abdomen Pelvis Wo Contrast - 01/08/2018 4:44 pm CLINICAL HISTORY: Chest wall mass suspicious for metastatic disease, abdominal pain COMPARISON: None. TECHNIQUE: Axial [address] imaging of the abdomen and pelvis was performed without IV contrast. No IV contrast was given because of allergy, abnormal renal function, patient refusal or physician request. No oral contrast was given. All CT scans are performed using dose optimization technique as appropriate and may include automated exposure control or mA/KV adjustment according to patient size. FINDINGS: Lung base findings are detailed on prior CT chest examination. Liver size is normal. Assessment is limited in the absence of IV contrast. In the posterior mid right lobe there is a 15 millimeter area of diminished attenuation. Focal lesion is possible. Mild splenomegaly is present. No pancreatic abnormality suspected on noncontrast imaging. Gallbladder is distended. Gallstones can be occult. No biliary tree dilatation. Right kidney has a normal contour. There is a lobulated contour to the upper pole left kidney which could indicate cysts or possible scarring from prior ischemic or infectious insult. Significant bilateral hydronephrosis is present, right greater than left. There is no obstructing calculus. Dilatation extends to each UVJ. There is an 8 x 6 centimeter soft tissue mass in the region of the cervix and the vaginal vault. This appears to invade or at least at extrinsic mass effect on the bladder. This likely invades or obstructs each UVJ causing the hydronephrosis. There is mild congestion and edema in the fat adjacent to this suspected cervical carcinoma. No significant adrenal finding. Isodense renal masses and pyelonephritis cannot be excluded in the absence of IV contrast. No dilated bowel loops or bowel wall thickening. No free air, free fluid or inflammatory stranding. No omental thickening. No bulky lymphadenopathy. No suspicious bony findings IMPRESSION: Suspected cervical carcinoma. There is a large 8 x 6 centimeter mass in the cervix and deep vaginal vault region. Conclusions/Impression: A/ LAW likely due to excessive NSAIDs. Hypokalemia. Acidosis. Hypocalcemia. Hypermagnesemia. Macrocytic anemia. HTN. P/ Continue current POC and Medications. Agree with IVF. Start oral bicarb. Give potassium today. Start Vitamin D. Will titrate antihypertensives as needed. No NSAIDs. AM labs. Daily weight. Thank you kindly for the consultation.
[2018-01-08] MEDS ORDERED: LIDOCAINE 1% MPF 5 ML VIAL ONE (22:03)
[2018-01-08] MEDS ORDERED: EPOETIN ALFA 10,000 UNIT/ML VIAL ONE (22:15)
[2018-01-08] MEDS ORDERED: NA CHLORIDE 0.9% 50 ML ONE (23:20)
[2018-01-09] MEDS: ACETAMINOPHEN 500 MG TAB PO PRN (00:10)
[2018-01-09] MEDS: D5W 1,000 ML with NA BICARB 8.4% 100 MEQ IV SCH ×2 (02:00)
[2018-01-09 03:20] LABS: Urine Appearance TURBID; Urine Bilirubin NEGATIVE (NEG); Urine Blood 2+ (NEG); Urine Color YELLOW; Urine Glucose NEGATIVE (NEG); Urine Protein 2+ (NEG); Urine Specific Gravity 1.015 (1.005-1.030); Urine Urobilinogen 0.2 mg/dL (0.2-1.0); Urine pH 5.5 (5.0-7.0)
[2018-01-09 03:50] LABS: Urine Bacteria >50 /HPF (<20); Urine Culture Reflex Order REFLEXED; Urine RBC <5 /HPF (NONE SEEN)
[2018-01-09 05:30] LABS: Absolute Lymphocytes (CBC) 1.2 K/uL (0.7-4.9); Absolute Monocytes 1.3 K/uL (0.1-1.3); Absolute Neutrophil 8.5 K/uL (1.8-8.0); Basophils % 0.5 % (0-1.3); Eosinophils % 1.3 % (0-4.4); Hematocrit 23.5 % (36.0-45.0); Lymphocytes % 11.1 % (15.3-44.8); MCV 103.3 fL (80-100); Monocytes % 11.5 % (3.3-12.3); RBC Red Blood Cell Count 2.27 M/uL (3.86-4.86)
[2018-01-09 05:53] LABS: Albumin 2.4 g/dL (3.4-5.0); Bilirubin Total 0.4 mg/dL (0.2-1.0); Phosphorus 6.2 mg/dL (2.5-4.9); Potassium 3.7 mmol/L (3.5-5.1); Protein, Total 6.3 g/dL (6.4-8.2); Uric Acid 8.6 mg/dL (2.6-6.0)
[2018-01-09] MEDS ORDERED: CARVEDILOL 3.125 MG TAB PO SCH (09:00)
[2018-01-09] MEDS ORDERED: VITAMIN D 5,000 UNIT CAP PO SCH (09:00)
[2018-01-09] MEDS ORDERED: CALCITROL 0.25 MCG CAP PO SCH (09:00)
[2018-01-09] MEDS: FOLIC ACID 1 MG TABLET PO SCH (09:52)
[2018-01-09] MEDS: THIAMINE HCL 100 MG TABLET PO SCH (09:59)
[2018-01-09] MEDS: MORPHINE 2 MG/ML SYR IV PRN ×2 (09:59→15:53)
--- NOTE | 2018-01-09 13:58 | P.DS ---
Admission Date: 01/07/18 Discharge Date: 01/09/18 Primary Care Provider: None Disposition: TRANSFER TO [facility] Discharge Condition: GOOD Reason for Admission: Dyspnea Consultations: Surgery-Dr. Steele Nephrology-Dr. Vilelda Procedures: CT scan: COMPARISON: None. TECHNIQUE: Axial [address] imaging of the abdomen and pelvis was performed without IV contrast. No IV contrast was given because of allergy, abnormal renal function, patient refusal or physician request. No oral contrast was given. All CT scans are performed using dose optimization technique as appropriate and may include automated exposure control or mA/KV adjustment according to patient size. FINDINGS: Lung base findings are detailed on prior CT chest examination. Liver size is normal. Assessment is limited in the absence of IV contrast. In the posterior mid right lobe there is a 15 millimeter area of diminished attenuation. Focal lesion is possible. Mild splenomegaly is present. No pancreatic abnormality suspected on noncontrast imaging. Gallbladder is distended. Gallstones can be occult. No biliary tree dilatation. Right kidney has a normal contour. There is a lobulated contour to the upper pole left kidney which could indicate cysts or possible scarring from prior ischemic or infectious insult. Significant bilateral hydronephrosis is present, right greater than left. There is no obstructing calculus. Dilatation extends to each UVJ. There is an 8 x 6 centimeter soft tissue mass in the region of the cervix and the vaginal vault. This appears to invade or at least at extrinsic mass effect on the bladder. This likely invades or obstructs each UVJ causing the hydronephrosis. There is mild congestion and edema in the fat adjacent to this suspected cervical carcinoma. No significant adrenal finding. Isodense renal masses and pyelonephritis cannot be excluded in the absence of IV contrast. No dilated bowel loops or bowel wall thickening. No free air, free fluid or inflammatory stranding. No omental thickening. No bulky lymphadenopathy. No suspicious bony findings. IMPRESSION: Suspected cervical carcinoma. There is a large 8 x 6 centimeter mass in the cervix and deep vaginal vault region. Mass either either invades or causes extrinsic compression of the bladder base and each UVJ. Patient has significant bilateral hydronephrosis. No ascites or omental thickening. No bulky lymphadenopathy. Lung base and chest wall findings are detailed on separate CT chest report. Full assessment is limited is the absence of IV contrast. CT scan: COMPARISON: None. TECHNIQUE: Axial 5 mm thick images of the neck and chest were obtained without IV contrast. Contrast was withheld due to abnormal renal function All CT scans are performed using dose optimization technique as appropriate and may include automated exposure control or mA/KV adjustment according to patient size. FINDINGS: No suspicious mass and no infiltrate of the lung parenchyma. There is a trace amount of stranding in the posterior gutter on the left. No pleural effusion and no pneumothorax. No abnormal mediastinal or hilar masses or lymphadenopathy seen. No gross aortic or pulmonary artery finding suspected. No pericardial thickening or effusion. In the anterior left chest, there is a 5 x 3 centimeter chest wall soft tissue mass that involves the chest wall and anterior left sixth rib. No other rib lesion or chest wall mass identifiable. No axillary lymphadenopathy. No mass or suspicious finding in the breast tissue. Imaging extended into the neck. No mass or abnormal lymphadenopathy. No suspicious soft tissue finding. IMPRESSION: Approximately 3 x 5 centimeter soft tissue mass involving the left anterior chest wall and anterior left sixth rib. This has the appearance of a malignant mass, most likely metastatic. No other mass, lymphadenopathy or suspicious finding on noncontrast imaging of the neck and chest. Medical problem list: Acute kidney injury secondary to possible obstructive nephropathy Metabolic acidosis Soft tissue mass 5 x 3 cm involving the left anterior chest wall and anterior left 6th rib likely metastatic Large 8 x 6 cm mass in the cervix and deep vaginal vault region. Mass either invades or causes intrinsic compression of the bladder base and each UVJ. Patient with significant bilateral hydronephrosis. Suspect stage IV cervical carcinoma Tobacco abuse Alcohol use Megaloblastic anemia likely secondary to alcohol use GERD Brief History of Present Illness: 57-year-old female presented emergency room with pain to the left ribcage region. Patient had seen surgery in the recent past. A mammogram done on 12/13/2017 was negative for any type of breast mass. The patient came to the ER for further evaluation. In the ER patient was found to have metabolic acidosis with acute renal injury. Patient had been taking multiple NSAIDs the prior week for pain. CT chest showed a 5 x 3 cm chest soft tissue mass involving the anterior left chest and left 6th rib. This appeared to be metastatic. Patient was admitted for further evaluation. Hospital Course: Patient presented with left rib pain. CT scan revealed 5 x 3 cm chest soft tissue mass involving the anterior left chest and left 6th rib. This appears metastatic in nature. Patient subsequently had a CT of the abdomen. A large 8 x 6 cm mass in the cervix and deep vaginal vault region was identified. Masses either invades or causes inches in compression of the bladder base and each UVJ. Bilateral hydronephrosis noted. Patient also presented with acute renal failure with metabolic acidosis. Patient was evaluated by a nephrology and surgery. Case discussed at length. Recommendation is for the patient to be transferred to a higher level of care center for further evaluation. Stage IV cervical carcinoma is likely. Patient has not had a recent Pap smear or female examination. Patient will need biopsy and further evaluation. Patient may end up needing dialysis. Percutaneous nephrostomy tubes may be required. Debulking of area in pelvic region may also be required. This was discussed in detail with accepting physician-Hospitalist at [facility]. Patient to be transferred for further evaluation and treatment. Patient with anemia. Patient required 1 unit of blood. Anemia will need to be monitored closely. Patient may need require further transfusion to maintain adequate control. Patient with history of tobacco and alcohol use. Cessation will need to be educated. Vital Signs/Physical Exam: Temp Pulse Resp BP Pulse Ox 97.5 F 76 17 131/62 98 01/09/18 08:00 01/09/18 09:51 01/09/18 08:00 01/09/18 09:51 01/09/18 08:00 General: Alert, In no apparent distress, Oriented x3, Cooperative HEENT: Atraumatic Neck: Supple Respiratory: Clear to auscultation bilaterally, Normal air movement, Other ( Pain to the left ribcage region) Cardiovascular: Normal pulses, Regular rate/rhythm Gastrointestinal: Normal bowel sounds, Soft and benign, Non-distended, No tenderness, No masses, No rebound, No guarding Musculoskeletal: No erythema, No tenderness, No warmth Integumentary: No tenderness/swelling, No erythema, No warmth, No cyanosis Neurological: Normal speech, Normal strength at 5/5 x4 extr, Normal tone, Normal affect Laboratory Data at Discharge: WBC 11.2 K/uL (4.3-10.9) H 01/09/18 04:14 Hgb 8.2 g/dL (12.0-15.0) L 01/09/18 04:14 Hct 23.5 % (36.0-45.0) L 01/09/18 04:14 Plt Count 249 K/uL (152-406) 01/09/18 04:14 PT 14.5 SECONDS (9.5-12.5) H 01/07/18 12:47 INR 1.23 01/07/18 12:47 APTT 34.3 SECONDS (24.3-36.9) 01/07/18 12:47 Sodium 134 mmol/L (136-145) L 01/09/18 04:14 Potassium 3.7 mmol/L (3.5-5.1) 01/09/18 04:14 BUN 50 mg/dL (7-18) H 01/09/18 04:14 Creatinine 4.00 mg/dL (0.55-1.3) H 01/09/18 04:14 Glucose 100 mg/dL (74-106) 01/09/18 04:14 Uric Acid 8.6 mg/dL (2.6-6.0) H 01/09/18 04:14 Phosphorus 6.2 mg/dL (2.5-4.9) H 01/09/18 04:14 Magnesium 2.5 mg/dL (1.8-2.4) H 01/07/18 12:47 Total Bilirubin 0.4 mg/dL (0.2-1.0) 01/09/18 04:14 AST 24 U/L (15-37) 01/09/18 04:14 ALT 17 U/L (12-78) 01/09/18 04:14 Alkaline Phosphatase 74 U/L (45-117) 01/09/18 04:14 Home Medications: Carvedilol 6.25 mg PO BID 01/07/18 Patient Discharge Instructions: 1. Patient to be transferred to a higher level of care center to further assess abnormal findings. Stage IV carcinoma with metastasis to the bladder and left chest wall likely. Patient may require bilateral percutaneous nephrostomy tubes, debulking of pelvic region, and/or dialysis. Diet: Renal Activity: Ad juice Time spent managing pt's care (in minutes): 55
--- NOTE | 2018-01-09 22:08 | P.PN ---
Date of Service: 01/09/18 Vital Signs Temp Pulse Resp BP Pulse Ox 97.9 F 78 17 129/60 97 01/09/18 12:00 01/09/18 12:00 01/09/18 12:00 01/09/18 12:00 01/09/18 12:00 Assessment/ Plan: Nephrology. CPS stable without CP or SOB. No acute events overnight. Doing well. Findings of CT scan discussed with the patient. General: In no apparent distress, Oriented x3, Cooperative HEENT: Atraumatic Neck: Supple Respiratory: Clear to auscultation bilaterally Cardiovascular: No edema, Regular rate/rhythm Gastrointestinal: Soft and benign, Non-distended Musculoskeletal: No clubbing, No contractures Integumentary: No rashes, No cyanosis Neurological: Normal speech Blood work reviewed in the chart. Hgb 7.7; Cr 4 Imagings Data: EXAM DESCRIPTION: CT - Thorax Wo Con - 01/07/2018 2:14 pm CLINICAL HISTORY: Shortness of breath, back pain, possible dissection COMPARISON: None. TECHNIQUE: Axial 5 mm thick images of the neck and chest were obtained without IV contrast. Contrast was withheld due to abnormal renal function All CT scans are performed using dose optimization technique as appropriate and may include automated exposure control or mA/KV adjustment according to patient size. FINDINGS: No suspicious mass and no infiltrate of the lung parenchyma. There is a trace amount of stranding in the posterior gutter on the left. No pleural effusion and no pneumothorax. No abnormal mediastinal or hilar masses or lymphadenopathy seen. No gross aortic or pulmonary artery finding suspected. No pericardial thickening or effusion. In the anterior left chest, there is a 5 x 3 centimeter chest wall soft tissue mass that involves the chest wall and anterior left sixth rib. No other rib lesion or chest wall mass identifiable. No axillary lymphadenopathy. No mass or suspicious finding in the breast tissue. Imaging extended into the neck. No mass or abnormal lymphadenopathy. No suspicious soft tissue finding. IMPRESSION: Approximately 3 x 5 centimeter soft tissue mass involving the left anterior chest wall and anterior left sixth rib. This has the appearance of a malignant mass, most likely metastatic. No other mass, lymphadenopathy or suspicious finding on noncontrast imaging of the neck and chest. EXAM DESCRIPTION: CT - Abdomen Pelvis Wo Contrast - 01/08/2018 4:44 pm CLINICAL HISTORY: Chest wall mass suspicious for metastatic disease, abdominal pain COMPARISON: None. TECHNIQUE: Axial [address] imaging of the abdomen and pelvis was performed without IV contrast. No IV contrast was given because of allergy, abnormal renal function, patient refusal or physician request. No oral contrast was given. All CT scans are performed using dose optimization technique as appropriate and may include automated exposure control or mA/KV adjustment according to patient size. FINDINGS: Lung base findings are detailed on prior CT chest examination. Liver size is normal. Assessment is limited in the absence of IV contrast. In the posterior mid right lobe there is a 15 millimeter area of diminished attenuation. Focal lesion is possible. Mild splenomegaly is present. No pancreatic abnormality suspected on noncontrast imaging. Gallbladder is distended. Gallstones can be occult. No biliary tree dilatation. Right kidney has a normal contour. There is a lobulated contour to the upper pole left kidney which could indicate cysts or possible scarring from prior ischemic or infectious insult. Significant bilateral hydronephrosis is present, right greater than left. There is no obstructing calculus. Dilatation extends to each UVJ. There is an 8 x 6 centimeter soft tissue mass in the region of the cervix and the vaginal vault. This appears to invade or at least at extrinsic mass effect on the bladder. This likely invades or obstructs each UVJ causing the hydronephrosis. There is mild congestion and edema in the fat adjacent to this suspected cervical carcinoma. No significant adrenal finding. Isodense renal masses and pyelonephritis cannot be excluded in the absence of IV contrast. No dilated bowel loops or bowel wall thickening. No free air, free fluid or inflammatory stranding. No omental thickening. No bulky lymphadenopathy. No suspicious bony findings IMPRESSION: Suspected cervical carcinoma. There is a large 8 x 6 centimeter mass in the cervix and deep vaginal vault region. Conclusions/Impression: A/ LAW likely due to excessive NSAIDs and complicated by urinary obstruction due to lower abdominal mass. Hypokalemia. Hyponatremia. Acidosis. Hypocalcemia. Hypermagnesemia. Macrocytic anemia. HTN. Lower abdominal mass with likely metastatic disease. P/ Continue current POC and Medications. DC IVF. No NSAIDs. AM labs. Daily weight. Case discussed with Dr. Steve; Agree with the plan of transfer due to severity of illness including metastatic disease with urinary obstruction.
== END 2018-01-09 16:45 | disposition short-term general hospital (02) | DRG 683 ==
LOC: ER 11:49 → ERHOLD 15:48 → 2ND 17:47
PROVIDERS: ADMIT Family Medicine; ATTEND Family Medicine
DX: N17.0 Acute kidney failure with tubular necrosis (principal); E87.2 Acidosis; E87.1 Hypo-osmolality and hyponatremia; C53.9 Malignant neoplasm of cervix uteri, unspecified; N13.30 Unspecified hydronephrosis; R22.2 Localized swelling, mass and lump, trunk; D53.1 Other megaloblastic anemias, not elsewhere classified; E87.6 Hypokalemia; E83.51 Hypocalcemia; E83.41 Hypermagnesemia; I10 Essential (primary) hypertension; F17.210 Nicotine dependence, cigarettes, uncomplicated
CPT/HCPCS: 36415; 71045; 71250; 74176; 80048; 80053; 80076; 81001; 82550; 82553; 82607; 82746; 83540; 83735; 83880; 84100; 84466; 84484; 84550; 85014; 85018; 85025; 85610; 85730; 86850; 86900; 86901; 87077; 87086; 87088; 87186; 93005; 94760; 96374; 96375; 99285; J0885; J1940; J2270; J2405; P9016; Q4081

== ENCOUNTER 2018-03-30 15:17 | Emergency (ER) | payer OTHER ==
--- OUTSIDE RECORDS SUMMARY | 2018-03-30 15:36 | XMS REPORT ---
:1960 [facility] [address] [place] [address] Care Team Providers Name Role Phone ROSANA BRADLEY Unavailable Unavailable KLAUS LUIS Unavailable Unavailable LUCIA LORENZO Unavailable Unavailable Problems This patient has no known problems. Allergies, Adverse Reactions, Alerts This patient has no known allergies or adverse reactions. Medications This patient has no known medications. Results Test Description Test Time Test Comments Text Results Atomic Results Result Comments FUNGUS CULTURE + SMEAR 2018-03-19 07:38:00 Test Item Value Reference Range Comments CULTURE (BEAKER) (test exsz=2231) No fungus isolated in 28 days FUNGUS SMEAR (BEAKER) (test jdfu=3225) No fungi seen VANCOMYCIN LEVEL, [id number] 11:23:00 Test Item Value Reference Range Comments VANCOMYCIN TROUGH (BEAKER) (test hxax=222) 15.3 ug/mL 10.0-20.0 Please draw trough before 10:[id number] 05:56:00 Test Item Value Reference Range Comments PHOSPHORUS (BEAKER) (test qxcw=051) 3.1 mg/dL 2.3-4.7 [id number] 05:56:00 Test Item Value Reference Range Comments MAGNESIUM (BEAKER) (test cpgs=645) 1.6 mg/dL 1.6-2.6 BASIC METABOLIC [id number] 05:56:00 Test Item Value Reference Range Comments SODIUM (BEAKER) (test 130 meq/L 136-145 imtv=745) POTASSIUM (BEAKER) (test 4.2 meq/L 3.5-5.1 ewac=332) CHLORIDE (BEAKER) (test 100 meq/L 98-107 xcxc=332) CO2 (BEAKER) (test 25 meq/L 22-29 bteu=678) BLOOD UREA NITROGEN 11 mg/dL 7-21 (BEAKER) (test wfon=348) CREATININE (BEAKER) (test 0.73 mg/dL 0.57-1.25 oxwx=270) GLUCOSE RANDOM (BEAKER) 97 mg/dL 70-105 (test rabj=998) CALCIUM (BEAKER) (test 9.7 mg/dL 8.4-10.2 auea=743) EGFR (BEAKER) (test 82 mL/min/1.73 sq m ESTIMATED GFR IS NOT japy=7375) ACCURATE CREATININE CLEARANCE IN PREDICTING GLOMERULAR FILTRATION RATE. ESTIMATED GFR IS NOT APPLICABLE FOR DIALYSIS PATIENTS. CBC W/PLT COUNT & AUTO [id number] 05:22:00 Test Item Value Reference Range Comments WHITE BLOOD CELL COUNT (BEAKER) (test aajs=450) 6.0 K/ L 3.5-10.5 RED BLOOD CELL COUNT (BEAKER) (test bmmv=526) 3.04 M/ L 3.93-5.22 HEMOGLOBIN (BEAKER) (test pfjh=833) 9.0 GM/DL 11.2-15.7 HEMATOCRIT (BEAKER) (test bdgc=047) 27.8 % 34.1-44.9 MEAN CORPUSCULAR VOLUME (BEAKER) (test jvbx=392) 91.4 fL 79.4-94.8 MEAN CORPUSCULAR HEMOGLOBIN (BEAKER) (test 29.6 pg 25.6-32.2 xbkr=601) MEAN CORPUSCULAR HEMOGLOBIN CONC (BEAKER) (test 32.4 GM/DL 32.2-35.5 zhei=862) RED CELL DISTRIBUTION WIDTH (BEAKER) (test 18.2 % 11.7-14.4 fkwt=594) PLATELET COUNT (BEAKER) (test lhni=971) 188 K/CU MM 150-450 MEAN PLATELET VOLUME (BEAKER) (test wofd=568) 9.6 fL 9.4-12.3 NUCLEATED RED BLOOD CELLS (BEAKER) (test 0 /100 WBC 0-0 xono=984) NEUTROPHILS RELATIVE PERCENT (BEAKER) (test 46 % japu=505) LYMPHOCYTES RELATIVE PERCENT (BEAKER) (test 30 % qibw=828) MONOCYTES RELATIVE PERCENT (BEAKER) (test 19 % leeb=214) EOSINOPHILS RELATIVE PERCENT (BEAKER) (test 5 % qwsv=279) BASOPHILS RELATIVE PERCENT (BEAKER) (test 1 % fmrd=830) NEUTROPHILS ABSOLUTE COUNT (BEAKER) (test 2.77 K/ L 1.56-6.13 lalu=718) LYMPHOCYTES ABSOLUTE COUNT (BEAKER) (test 1.76 K/ L 1.18-3.74 rcyf=450) MONOCYTES ABSOLUTE COUNT (BEAKER) (test 1.12 K/ L 0.24-0.36 pibj=112) EOSINOPHILS ABSOLUTE COUNT (BEAKER) (test 0.27 K/ L 0.04-0.36 ttji=680) BASOPHILS ABSOLUTE COUNT (BEAKER) (test 0.04 K/ L 0.01-0.08 vyrm=277) IMMATURE GRANULOCYTES-RELATIVE PERCENT (BEAKER) 0 % 0-1 (test qysz=4065) BASIC METABOLIC [id number] 12:11:00 Test Item Value Reference Range Comments SODIUM (BEAKER) (test 130 meq/L 136-145 smmu=143) POTASSIUM (BEAKER) (test 3.4 meq/L 3.5-5.1 qcqv=065) CHLORIDE (BEAKER) (test 97 meq/L 98-107 gvqo=055) CO2 (BEAKER) (test 25 meq/L 22-29 zyvw=825) BLOOD UREA NITROGEN 11 mg/dL 7-21 (BEAKER) (test kmzf=506) CREATININE (BEAKER) (test 0.79 mg/dL 0.57-1.25 dasd=162) GLUCOSE RANDOM (BEAKER) 134 mg/dL 70-105 (test cnqm=038) CALCIUM (BEAKER) (test 9.4 mg/dL 8.4-10.2 ojky=491) EGFR (BEAKER) (test 74 mL/min/1.73 sq m ESTIMATED GFR IS NOT xdyp=4014) ACCURATE CREATININE CLEARANCE IN PREDICTING GLOMERULAR FILTRATION RATE. ESTIMATED GFR IS NOT APPLICABLE FOR DIALYSIS PATIENTS. VANCOMYCIN LEVEL, [id number] 11:32:00 Test Item Value Reference Range Comments VANCOMYCIN TROUGH (BEAKER) (test npdp=703) 16.5 ug/mL 10.0-20.0 BLOOD [id number] 11:02:00 Test Item Value Reference Range Comments CULTURE (BEAKER) (test kcjh=5603) No growth in 5 days BLOOD [id number] 11:00:00 Test Item Value Reference Range Comments CULTURE (BEAKER) (test plkg=9500) No growth in 5 days BLOOD [id number] 11:04:00 Test Item Value Reference Range Comments CULTURE (BEAKER) (test oyin=5396) No growth in 5 days VANCOMYCIN LEVEL, [id number] 07:41:00 Test Item Value Reference Range Comments VANCOMYCIN RANDOM (BEAKER) (test bcbb=981) 17.0 ug/mL Reference Range: No NormalsHold further dosing for level > 20, Alert MD and RphVANCOMYCIN LEVEL, [id number] 16:03:00 Test Item Value Reference Range Comments VANCOMYCIN RANDOM (BEAKER) (test zkrk=177) 31.7 ug/mL Reference Range: No NormalsBLOOD [id number] 11:03:00 Test Item Value Reference Range Comments CULTURE (BEAKER) (test ozbr=4193) No growth in 5 days [id number] 07:13:00 Test Item Value Reference Range Comments MAGNESIUM (BEAKER) (test lwqv=364) 1.4 mg/dL 1.6-2.6 BASIC METABOLIC [id number] 07:13:00 Test Item Value Reference Range Comments SODIUM (BEAKER) (test 135 meq/L 136-145 bjmt=112) POTASSIUM (BEAKER) (test 3.8 meq/L 3.5-5.1 owti=226) CHLORIDE (BEAKER) (test 101 meq/L 98-107 syeb=668) CO2 (BEAKER) (test 26 meq/L 22-29 hqts=249) BLOOD UREA NITROGEN 11 mg/dL 7-21 (BEAKER) (test bnit=433) CREATININE (BEAKER) (test 0.78 mg/dL 0.57-1.25 gjvv=990) GLUCOSE RANDOM (BEAKER) 97 mg/dL 70-105 (test kewf=592) CALCIUM (BEAKER) (test 9.8 mg/dL 8.4-10.2 svpc=460) EGFR (BEAKER) (test 76 mL/min/1.73 sq m ESTIMATED GFR IS NOT oayx=9249) ACCURATE CREATININE CLEARANCE IN PREDICTING GLOMERULAR FILTRATION RATE. ESTIMATED GFR IS NOT APPLICABLE FOR DIALYSIS PATIENTS. VANCOMYCIN LEVEL, [id number] 22:09:00 Test Item Value Reference Range Comments VANCOMYCIN RANDOM (BEAKER) (test nrub=811) 29.3 ug/mL Reference Range: No NormalsHold further dosing for level > 20, alert MD and RphBLOOD [id number] 12:01:00 Test Item Value Reference Range Comments CULTURE (BEAKER) (test pcqf=5036) No growth in 5 days BLOOD [id number] 12:01:00 Test Item Value Reference Range Comments CULTURE (BEAKER) (test rbrq=9327) No growth in 5 days [id number] 06:47:00 Test Item Value Reference Range Comments MAGNESIUM (BEAKER) (test uqip=640) 1.3 mg/dL 1.6-2.6 BASIC METABOLIC [id number] 06:47:00 Test Item Value Reference Range Comments SODIUM (BEAKER) (test 133 meq/L 136-145 mewk=507) POTASSIUM (BEAKER) (test 3.4 meq/L 3.5-5.1 mzzm=616) CHLORIDE (BEAKER) (test 99 meq/L 98-107 mnbn=955) CO2 (BEAKER) (test 27 meq/L 22-29 adnb=405) BLOOD UREA NITROGEN 12 mg/dL 7-21 (BEAKER) (test piwk=331) CREATININE (BEAKER) (test 0.82 mg/dL 0.57-1.25 gtag=563) GLUCOSE RANDOM (BEAKER) 100 mg/dL 70-105 (test tkdp=298) CALCIUM (BEAKER) (test 9.7 mg/dL 8.4-10.2 dovg=371) EGFR (BEAKER) (test 71 mL/min/1.73 sq m ESTIMATED GFR IS NOT aews=2149) ACCURATE CREATININE CLEARANCE IN PREDICTING GLOMERULAR FILTRATION RATE. ESTIMATED GFR IS NOT APPLICABLE FOR DIALYSIS PATIENTS. RAD, CHEST, 1 VIEW, NON [id number] 21:57:00Reason for exam:->PICC LINE TIP VERIFICATION Should this be performed at the bedside?->YesFINAL REPORT Chest one view. Clinical history: PICC LINE TIP VERIFICATION Comparison: Chest radiograph 01/22/2018. Technique: A single frontal view of the chest was obtained. Findings:There is a left PICC line with tip in the distal SVC. There is a small left pleural effusion. There is airspace opacity in the left lower lobe which may represent atelectasis and/or pneumonia. There is no pneumothorax. The heart is normal in size. The aorta is tortuous. The osseous structures are demineralized. There is mid thoracic spinal fixation hardware. IMPRESSION:Left PICC line with tip in the distal SVC.Small left pleural effusion. Left lower lobe opacity which may represent atelectasisand/or pneumonia. No pneumothorax. Signed: Cesar Santamariaeport Verified Date/Time: 02/19/2018 21:57:53 Reading Location: [facility] B1 C013Y CT Body Reading Room BLOOD [id number] 11:03:00 Test Item Value Reference Range Comments CULTURE (BEAKER) (test fndp=0296) No growth in 5 days BLOOD [id number] 11:03:00 Test Item Value Reference Range Comments CULTURE (BEAKER) (test wnag=9062) No growth in 5 days [id number] 05:25:00 Test Item Value Reference Range Comments PHOSPHORUS (BEAKER) (test ijyx=859) 3.7 mg/dL 2.3-4.7 [id number] 05:25:00 Test Item Value Reference Range Comments MAGNESIUM (BEAKER) (test ogly=223) 1.2 mg/dL 1.6-2.6 BASIC METABOLIC [id number] 05:25:00 Test Item Value Reference Range Comments SODIUM (BEAKER) (test 134 meq/L 136-145 vifw=438) POTASSIUM (BEAKER) (test 3.2 meq/L 3.5-5.1 tmhp=447) CHLORIDE (BEAKER) (test 100 meq/L 98-107 tyem=325) CO2 (BEAKER) (test 23 meq/L 22-29 oblf=686) BLOOD UREA NITROGEN 12 mg/dL 7-21 (BEAKER) (test bdpv=575) CREATININE (BEAKER) (test 0.82 mg/dL 0.57-1.25 yykh=403) GLUCOSE RANDOM (BEAKER) 98 mg/dL 70-105 (test tkbz=922) CALCIUM (BEAKER) (test 9.7 mg/dL 8.4-10.2 iado=865) EGFR (BEAKER) (test 71 mL/min/1.73 sq m ESTIMATED GFR IS NOT elgt=8410) ACCURATE CREATININE CLEARANCE IN PREDICTING GLOMERULAR FILTRATION RATE. ESTIMATED GFR IS NOT APPLICABLE FOR DIALYSIS PATIENTS. CBC W/PLT COUNT & AUTO [id number] 04:50:00 Test Item Value Reference Range Comments WHITE BLOOD CELL COUNT (BEAKER) (test vhbx=392) 11.5 K/ L 3.5-10.5 RED BLOOD CELL COUNT (BEAKER) (test oahb=572) 3.46 M/ L 3.93-5.22 HEMOGLOBIN (BEAKER) (test xhif=342) 10.4 GM/DL 11.2-15.7 HEMATOCRIT (BEAKER) (test ipcc=903) 32.6 % 34.1-44.9 MEAN CORPUSCULAR VOLUME (BEAKER) (test ydnl=162) 94.2 fL 79.4-94.8 MEAN CORPUSCULAR HEMOGLOBIN (BEAKER) (test 30.1 pg 25.6-32.2 flbs=855) MEAN CORPUSCULAR HEMOGLOBIN CONC (BEAKER) (test 31.9 GM/DL 32.2-35.5 qfck=748) RED CELL DISTRIBUTION WIDTH (BEAKER) (test 19.4 % 11.7-14.4 qrto=870) PLATELET COUNT (BEAKER) (test rolh=659) 393 K/CU MM 150-450 MEAN PLATELET VOLUME (BEAKER) (test quyx=252) 8.6 fL 9.4-12.3 NUCLEATED RED BLOOD CELLS (BEAKER) (test 0 /100 WBC 0-0 dgcy=801) NEUTROPHILS RELATIVE PERCENT (BEAKER) (test 62 % mrji=735) LYMPHOCYTES RELATIVE PERCENT (BEAKER) (test 22 % pnlp=814) MONOCYTES RELATIVE PERCENT (BEAKER) (test 10 % jqvj=383) EOSINOPHILS RELATIVE PERCENT (BEAKER) (test 2 % yujo=171) BASOPHILS RELATIVE PERCENT (BEAKER) (test 1 % shyl=274) NEUTROPHILS ABSOLUTE COUNT (BEAKER) (test 7.09 K/ L 1.56-6.13 vxuu=537) LYMPHOCYTES ABSOLUTE COUNT (BEAKER) (test 2.56 K/ L 1.18-3.74 zgcx=324) MONOCYTES ABSOLUTE COUNT (BEAKER) (test 1.12 K/ L 0.24-0.36 pyoo=677) EOSINOPHILS ABSOLUTE COUNT (BEAKER) (test 0.28 K/ L 0.04-0.36 jtqw=244) BASOPHILS ABSOLUTE COUNT (BEAKER) (test 0.10 K/ L 0.01-0.08 hfbs=174) IMMATURE GRANULOCYTES-RELATIVE PERCENT (BEAKER) 3 % 0-1 (test gajo=1157) SURGICALLY OBTAINED CULTURE + GRAM [id number] 14:14:00 Test Item Value Reference Range Comments CULTURE (BEAKER) (test ysxa=4949) No growth GRAM STAIN RESULT (BEAKER) (test No White blood cells seen bscd=4888) GRAM STAIN RESULT (BEAKER) (test No organisms seen wfih=95854) CBC W/PLT COUNT & AUTO [id number] 06:41:00 Test Item Value Reference Range Comments WHITE BLOOD CELL COUNT (BEAKER) (test vqbm=293) 12.7 K/ L 3.5-10.5 RED BLOOD CELL COUNT (BEAKER) (test xgib=491) 3.44 M/ L 3.93-5.22 HEMOGLOBIN (BEAKER) (test nutv=212) 10.5 GM/DL 11.2-15.7 HEMATOCRIT (BEAKER) (test whak=199) 32.2 % 34.1-44.9 MEAN CORPUSCULAR VOLUME (BEAKER) (test gfce=370) 93.6 fL 79.4-94.8 MEAN CORPUSCULAR HEMOGLOBIN (BEAKER) (test 30.5 pg 25.6-32.2 fvef=270) MEAN CORPUSCULAR HEMOGLOBIN CONC (BEAKER) (test 32.6 GM/DL 32.2-35.5 cuvc=693) RED CELL DISTRIBUTION WIDTH (BEAKER) (test 19.4 % 11.7-14.4 eapx=300) PLATELET COUNT (BEAKER) (test ckyr=666) 402 K/CU MM 150-450 MEAN PLATELET VOLUME (BEAKER) (test hmtu=213) 8.4 fL 9.4-12.3 NUCLEATED RED BLOOD CELLS (BEAKER) (test 0 /100 WBC 0-0 hchc=993) NEUTROPHILS RELATIVE PERCENT (BEAKER) (test 59 % begt=384) LYMPHOCYTES RELATIVE PERCENT (BEAKER) (test 24 % rqhw=395) MONOCYTES RELATIVE PERCENT (BEAKER) (test 10 % nyml=525) EOSINOPHILS RELATIVE PERCENT (BEAKER) (test 2 % igad=693) BASOPHILS RELATIVE PERCENT (BEAKER) (test 1 % oahw=920) NEUTROPHILS ABSOLUTE COUNT (BEAKER) (test 7.51 K/ L 1.56-6.13 fkyz=486) LYMPHOCYTES ABSOLUTE COUNT (BEAKER) (test 3.00 K/ L 1.18-3.74 rvxi=400) MONOCYTES ABSOLUTE COUNT (BEAKER) (test 1.28 K/ L 0.24-0.36 nhmv=422) EOSINOPHILS ABSOLUTE COUNT (BEAKER) (test 0.22 K/ L 0.04-0.36 qpfr=607) BASOPHILS ABSOLUTE COUNT (BEAKER) (test 0.13 K/ L 0.01-0.08 gvkf=010) IMMATURE GRANULOCYTES-RELATIVE PERCENT (BEAKER) 4 % 0-1 (test olsk=9144) BLOOD [id number] 06:00:00 Test Item Value Reference Range Comments CULTURE (BEAKER) (test ryxa=6469) No growth in 5 days BLOOD [id number] 12:00:00 Test Item Value Reference Range Comments CULTURE (BEAKER) (test uedz=1760) No growth in 5 days BLOOD [id number] 12:00:00 Test Item Value Reference Range Comments CULTURE (BEAKER) (test rykw=1304) No growth in 5 days CBC W/PLT COUNT & AUTO [id number] 07:49:00 Test Item Value Reference Range Comments WHITE BLOOD CELL COUNT (BEAKER) (test gddy=409) 13.8 K/ L 3.5-10.5 RED BLOOD CELL COUNT (BEAKER) (test ijvu=910) 3.42 M/ L 3.93-5.22 HEMOGLOBIN (BEAKER) (test pewv=212) 10.2 GM/DL 11.2-15.7 HEMATOCRIT (BEAKER) (test robt=174) 31.9 % 34.1-44.9 MEAN CORPUSCULAR VOLUME (BEAKER) (test usru=728) 93.3 fL 79.4-94.8 MEAN CORPUSCULAR HEMOGLOBIN (BEAKER) (test 29.8 pg 25.6-32.2 ybve=390) MEAN CORPUSCULAR HEMOGLOBIN CONC (BEAKER) (test 32.0 GM/DL 32.2-35.5 xiyx=178) RED CELL DISTRIBUTION WIDTH (BEAKER) (test 19.7 % 11.7-14.4 mbhu=363) PLATELET COUNT (BEAKER) (test obfp=471) 372 K/CU MM 150-450 MEAN PLATELET VOLUME (BEAKER) (test quzb=079) 8.2 fL 9.4-12.3 NUCLEATED RED BLOOD CELLS (BEAKER) (test 0 /100 WBC 0-0 csok=345) NEUTROPHILS RELATIVE PERCENT (BEAKER) (test 65 % jlkv=660) LYMPHOCYTES RELATIVE PERCENT (BEAKER) (test 20 % rozf=211) MONOCYTES RELATIVE PERCENT (BEAKER) (test 8 % bcbc=525) EOSINOPHILS RELATIVE PERCENT (BEAKER) (test 1 % ilmj=582) BASOPHILS RELATIVE PERCENT (BEAKER) (test 1 % ftbq=319) NEUTROPHILS ABSOLUTE COUNT (BEAKER) (test 8.95 K/ L 1.56-6.13 tqkj=771) LYMPHOCYTES ABSOLUTE COUNT (BEAKER) (test 2.80 K/ L 1.18-3.74 wbmz=497) MONOCYTES ABSOLUTE COUNT (BEAKER) (test 1.15 K/ L 0.24-0.36 iees=868) EOSINOPHILS ABSOLUTE COUNT (BEAKER) (test 0.19 K/ L 0.04-0.36 rjgn=626) BASOPHILS ABSOLUTE COUNT (BEAKER) (test 0.12 K/ L 0.01-0.08 jysh=422) IMMATURE GRANULOCYTES-RELATIVE PERCENT (BEAKER) 4 % 0-1 (test umdm=0211) CBC W/PLT COUNT & AUTO [id number] 14:25:00 Test Item Value Reference Range Comments WHITE BLOOD CELL COUNT (BEAKER) (test arvc=025) 10.9 K/ L 3.5-10.5 RED BLOOD CELL COUNT (BEAKER) (test lfjs=763) 3.28 M/ L 3.93-5.22 HEMOGLOBIN (BEAKER) (test hoqp=412) 9.9 GM/DL 11.2-15.7 HEMATOCRIT (BEAKER) (test czdt=624) 31.3 % 34.1-44.9 MEAN CORPUSCULAR VOLUME (BEAKER) (test vawj=136) 95.4 fL 79.4-94.8 MEAN CORPUSCULAR HEMOGLOBIN (BEAKER) (test 30.2 pg 25.6-32.2 mymk=818) MEAN CORPUSCULAR HEMOGLOBIN CONC (BEAKER) (test 31.6 GM/DL 32.2-35.5 waot=895) RED CELL DISTRIBUTION WIDTH (BEAKER) (test 19.9 % 11.7-14.4 mdil=152) PLATELET COUNT (BEAKER) (test zxlh=119) 333 K/CU MM 150-450 MEAN PLATELET VOLUME (BEAKER) (test sith=880) 8.0 fL 9.4-12.3 NUCLEATED RED BLOOD CELLS (BEAKER) (test 0 /100 WBC 0-0 dfpk=205) (CELLAVISION MANUAL DIFF)2018-02-16 14:25:00 Test Item Value Reference Range Comments NEUTROPHILS - REL (CELLAVISION)(BEAKER) (test 58 % wvum=4564) LYMPHOCYTES - REL (CELLAVISION)(BEAKER) (test 17 % sfqd=1933) MONOCYTES - REL (CELLAVISION)(BEAKER) (test 6 % oasl=0322) BASOPHILS - REL (CELLAVISION)(BEAKER) (test 1 % tyat=0846) METAMYELOCYTES - REL (CELLAVISION)(BEAKER) (test 2 % 0-0 bsuc=8036) MYELOCYTES - REL (CELLAVISION)(BEAKER) (test 3 % 0-0 tbhh=6864) BANDS - REL (CELLAVISION)(BEAKER) (test uqpz=3870) 13 % 0-10 NEUTROPHILS - ABS (CELLAVISION)(BEAKER) (test 6.32 K/ul 1.56-6.13 qdci=4337) LYMPHOCYTES - ABS (CELLAVISION)(BEAKER) (test 1.85 K/ul 1.18-3.74 awvf=8922) MONOCYTES - ABS (CELLAVISION)(BEAKER) (test 0.65 K/uL 0.24-0.36 blzk=6600) BASOPHILS - ABS (CELLAVISION)(BEAKER) (test 0.11 K/uL 0.01-0.08 shtb=0820) METAMYELOCYTES - ABS (CELLAVISION)(BEAKER) (test 0.22 K/uL 0.00-0.00 xtuv=9437) MYELOCYTES-ABS (CELLAVISION)(BEAKER) (test 0.33 K/uL 0.00-0.00 tomd=6833) BANDS - ABS (CELLAVISION)(BEAKER) (test hhar=8406) 1.42 K/uL 0.00-0.80 TOTAL COUNTED (BEAKER) (test ezff=5890) 100 WBC MORPHOLOGY (BEAKER) (test ocwa=050) Normal PLT MORPHOLOGY (BEAKER) (test igdt=146) Normal POLYCHROMATOPHILLIC RBCS(BEAKER) (test adyw=846) 1+ few ANISOCYTOSIS (BEAKER) (test hdak=306) 1+ few ARTIFACT (CELLAVISION)(BEAKER) (test ldhl=2178) Present PLATELET CONCENTRATION (CELLAVISION)(BEAKER) (test Adequate ongv=3255) Received comment: User comments: Slide comments:BLOOD [id number] 13:09:00 Test Item Value Reference Range Comments CULTURE (BEAKER) From Aerobic And Anaerobic (test gffq=2675) Bottles Coagulase negative Staphylococcus GRAM STAIN RESULT From aerobic and (BEAKER) (test anaerobic bottles: zhoi=7056) gram positive cocci in clusters BLOOD [id number] 13:08:00 Test Item Value Reference Range Comments CULTURE (BEAKER) (test METHICILLIN RESISTANT From Aerobic Bottle fjhp=2232) STAPHYLOCOCCUS AUREUS Only Methicillin resistant Staphylococcus aureus Clindamycin (test code=10) Erythromycin (test code=4) Linezolid (test code=40) Nitrofurantoin (test code=23) Oxacillin (test code=14) Rifampin (test code=43) Tetracycline (test code=2) Trimethoprim + Sulfamethoxazole (test code=47) Vancomycin (test code=13) CULTURE (BEAKER) (test From Aerobic Bottle gjgq=1676) Only Methicillin resistant Staphylococcus aureusSame as first isolate. GRAM STAIN RESULT From aerobic bottle (BEAKER) (test lrno=2176) only: gram positive cocci in clusters TISSUE [id number] 19:29:00Surgical Pathology Report Case: [id number] Authorizing Provider: Klaus Luis MD Collected: 02/15/2018 1442 Ordering Location: [facility] Received: 02/15/2018 1539 SERVICES Pathologist: Sarina Galaviz MD Specimen: Portacath PORT-A-CATH, REMOVAL: - PORT-A- CATH IDENTIFIED Signing Pathologist Direct Phone Line: [phone] signed by Sarina Galaviz MD on 02/15/2018 at 7:29 [id number] Qped-P-UjwyFse specimen is .received in a fluidless container labeled with patient information labeled "Port-A-Cath" and consists of a grossly appearing Port-A-Cath hardware measuring 2.5 x 1.5 x 1 cm with attached white tubing measuring 9 cm in length x 0.2 cm in diameter. Serial number is [id number]. The specimen is submitted for gross identification. CG/plCBC W/PLT COUNT & AUTO [id number] 11: 49:00 Test Item Value Reference Range Comments WHITE BLOOD CELL COUNT (BEAKER) (test ycaf=600) 11.2 K/ L 3.5-10.5 RED BLOOD CELL COUNT (BEAKER) (test scwj=317) 3.29 M/ L 3.93-5.22 HEMOGLOBIN (BEAKER) (test urnx=585) 9.9 GM/DL 11.2-15.7 HEMATOCRIT (BEAKER) (test ymrf=997) 31.0 % 34.1-44.9 MEAN CORPUSCULAR VOLUME (BEAKER) (test rymx=334) 94.2 fL 79.4-94.8 MEAN CORPUSCULAR HEMOGLOBIN (BEAKER) (test 30.1 pg 25.6-32.2 olcn=090) MEAN CORPUSCULAR HEMOGLOBIN CONC (BEAKER) (test 31.9 GM/DL 32.2-35.5 zotf=643) RED CELL DISTRIBUTION WIDTH (BEAKER) (test 19.9 % 11.7-14.4 jfzh=078) PLATELET COUNT (BEAKER) (test sqve=448) 318 K/CU MM 150-450 MEAN PLATELET VOLUME (BEAKER) (test tknc=499) 7.9 fL 9.4-12.3 NUCLEATED RED BLOOD CELLS (BEAKER) (test 0 /100 WBC 0-0 upfs=276) (CELLAVISION MANUAL DIFF)2018-02-15 11:49:00 Test Item Value Reference Range Comments NEUTROPHILS - REL (CELLAVISION)(BEAKER) (test 65 % pvun=2068) LYMPHOCYTES - REL (CELLAVISION)(BEAKER) (test 10 % ocri=5995) MONOCYTES - REL (CELLAVISION)(BEAKER) (test 8 % ckwp=1371) EOSINOPHILS - REL (CELLAVISION)(BEAKER) (test 2 % rrqk=9327) METAMYELOCYTES - REL (CELLAVISION)(BEAKER) (test 3 % 0-0 jhhy=2218) MYELOCYTES - REL (CELLAVISION)(BEAKER) (test 1 % 0-0 btyc=4729) BANDS - REL (CELLAVISION)(BEAKER) (test fkrk=8190) 10 % 0-10 ATYPICAL LYMPHOCYTES - REL (CELLAVISION)(BEAKER) 1 % 0-0 (test suav=0482) NEUTROPHILS - ABS (CELLAVISION)(BEAKER) (test 7.28 K/ul 1.56-6.13 wzef=1574) LYMPHOCYTES - ABS (CELLAVISION)(BEAKER) (test 1.12 K/ul 1.18-3.74 tmvb=6641) MONOCYTES - ABS (CELLAVISION)(BEAKER) (test 0.90 K/uL 0.24-0.36 awic=8627) EOSINOPHILS - ABS (CELLAVISION)(BEAKER) (test 0.22 K/uL 0.04-0.36 gayv=7858) METAMYELOCYTES - ABS (CELLAVISION)(BEAKER) (test 0.34 K/uL 0.00-0.00 eams=5571) MYELOCYTES-ABS (CELLAVISION)(BEAKER) (test 0.11 K/uL 0.00-0.00 ulih=2672) BANDS - ABS (CELLAVISION)(BEAKER) (test itpu=1012) 1.12 K/uL 0.00-0.80 ATYPICAL LYMPHOCYTES - ABS (CELLAVISION)(BEAKER) 0.11 K/uL 0.00-0.00 (test pqbt=2547) TOTAL COUNTED (BEAKER) (test ofzt=8438) 100 WBC MORPHOLOGY (BEAKER) (test awxh=338) Normal LARGE PLT(BEAKER) (test sqjf=0075) Present POLYCHROMATOPHILLIC RBCS(BEAKER) (test zmqv=954) 1+ few HYPOCHROMIA (BEAKER) (test nfvs=713) 1+ few ARTIFACT (CELLAVISION)(BEAKER) (test bedf=1964) Present PLATELET CONCENTRATION (CELLAVISION)(BEAKER) (test Adequate dfdp=2919) Received comment: User comments: Slide comments:BLOOD [id number] 13:20:00 Test Item Value Reference Range Comments CULTURE (BEAKER) From Aerobic And Anaerobic (test mgfi=3153) Bottles Same organism has been isolated from cultures(s) of the same body site and collection date. Repeat identification and susceptibility testing performed only after consultation with the clinical microbiology laboratory.Refer to previous culture ofCoagulase negative Staphylococcus GRAM STAIN RESULT From aerobic and (BEAKER) (test anaerobic bottles: zxoz=3672) gram positive cocci in clusters BLOOD [id number] 13:14:00 Test Item Value Reference Range Comments CULTURE (BEAKER) (test From Aerobic And uftg=0643) Anaerobic Bottles Same organism has been isolated from cultures(s) of the same body site within 3 days. Repeat identification and susceptibility testing performed only after consultation with the clinical microbiology laboratory.Refer to previous culture ofMethicillin resistant Staphylococcus aureus CULTURE (BEAKER) (test COAGULASE NEGATIVE From Aerobic Bottle efnk=8088) STAPHYLOCOCCUS Only Coagulase negative Staphylococcus Clindamycin (test code=10) Erythromycin (test code=4) Levofloxacin (test code=22) Linezolid (test code=40) Nitrofurantoin (test code=23) Oxacillin (test code=14) Rifampin (test code=43) Tetracycline (test code=2) Trimethoprim + Sulfamethoxazole (test code=47) Vancomycin (test code=13) GRAM STAIN RESULT From aerobic and (BEAKER) (test djhf=4919) anaerobic bottles: gram positive cocci in clusters BLOOD [id number] 13:08:00 Test Item Value Reference Range Comments CULTURE (BEAKER) (test METHICILLIN RESISTANT From Aerobic Bottle ickq=0324) STAPHYLOCOCCUS AUREUS Only Methicillin resistant Staphylococcus aureusof a second type Clindamycin (test code=10) Erythromycin (test code=4) Linezolid (test code=40) Oxacillin (test code=14) Rifampin (test code=43) Tetracycline (test code=2) Trimethoprim + Sulfamethoxazole (test code=47) Vancomycin (test code=13) CULTURE (BEAKER) (test From Aerobic Bottle rdws=6267) Only Methicillin resistant Staphylococcus aureusof a third type CULTURE (BEAKER) (test METHICILLIN RESISTANT From Anaerobic Bottle erse=1855) STAPHYLOCOCCUS AUREUS Only Same organism has been isolated from cultures(s) of the same body site and collection date. Repeat identification and susceptibility testing performed only after consultation with the clinical microbiology laboratory.Refer to previous culture ofMethicillin resistant Staphylococcus aureus Clindamycin (test code=10) Erythromycin (test code=4) Linezolid (test code=40) Oxacillin (test code=14) Rifampin (test code=43) Tetracycline (test code=2) Trimethoprim + Sulfamethoxazole (test code=47) Vancomycin (test code=13) GRAM STAIN RESULT From aerobic and (BEAKER) (test zhpg=9074) anaerobic bottles: gram positive cocci in clusters CBC W/PLT COUNT & AUTO [id number] 08:38:00 Test Item Value Reference Range Comments WHITE BLOOD CELL COUNT (BEAKER) (test exkr=089) 10.8 K/ L 3.5-10.5 RED BLOOD CELL COUNT (BEAKER) (test atrz=566) 3.29 M/ L 3.93-5.22 HEMOGLOBIN (BEAKER) (test seaf=739) 10.0 GM/DL 11.2-15.7 HEMATOCRIT (BEAKER) (test ndxy=613) 30.9 % 34.1-44.9 MEAN CORPUSCULAR VOLUME (BEAKER) (test etpf=689) 93.9 fL 79.4-94.8 MEAN CORPUSCULAR HEMOGLOBIN (BEAKER) (test 30.4 pg 25.6-32.2 xbym=921) MEAN CORPUSCULAR HEMOGLOBIN CONC (BEAKER) (test 32.4 GM/DL 32.2-35.5 ksnw=458) RED CELL DISTRIBUTION WIDTH (BEAKER) (test 19.9 % 11.7-14.4 gkvg=858) PLATELET COUNT (BEAKER) (test alpt=938) 308 K/CU MM 150-450 MEAN PLATELET VOLUME (BEAKER) (test ynrh=176) 8.2 fL 9.4-12.3 NUCLEATED RED BLOOD CELLS (BEAKER) (test 0 /100 WBC 0-0 orjd=548) (CELLAVISION MANUAL DIFF)2018-02-14 08:38:00 Test Item Value Reference Range Comments NEUTROPHILS - REL (CELLAVISION)(BEAKER) (test 60 % oiqj=1562) LYMPHOCYTES - REL (CELLAVISION)(BEAKER) (test 13 % hcbk=1084) MONOCYTES - REL (CELLAVISION)(BEAKER) (test 8 % jeew=1224) EOSINOPHILS - REL (CELLAVISION)(BEAKER) (test 2 % jxxl=0801) METAMYELOCYTES - REL (CELLAVISION)(BEAKER) (test 2 % 0-0 cfat=7671) MYELOCYTES - REL (CELLAVISION)(BEAKER) (test 7 % 0-0 mvsc=8679) BANDS - REL (CELLAVISION)(BEAKER) (test tfpn=2025) 7 % 0-10 ATYPICAL LYMPHOCYTES - REL (CELLAVISION)(BEAKER) 1 % 0-0 (test dpft=7584) NEUTROPHILS - ABS (CELLAVISION)(BEAKER) (test 6.48 K/ul 1.56-6.13 ljfo=4943) LYMPHOCYTES - ABS (CELLAVISION)(BEAKER) (test 1.40 K/ul 1.18-3.74 lcbf=5883) MONOCYTES - ABS (CELLAVISION)(BEAKER) (test 0.86 K/uL 0.24-0.36 jata=5148) EOSINOPHILS - ABS (CELLAVISION)(BEAKER) (test 0.22 K/uL 0.04-0.36 wskg=2512) METAMYELOCYTES - ABS (CELLAVISION)(BEAKER) (test 0.22 K/uL 0.00-0.00 idzz=5087) MYELOCYTES-ABS (CELLAVISION)(BEAKER) (test 0.76 K/uL 0.00-0.00 qawr=1184) BANDS - ABS (CELLAVISION)(BEAKER) (test abyd=8495) 0.76 K/uL 0.00-0.80 ATYPICAL LYMPHOCYTES - ABS (CELLAVISION)(BEAKER) 0.11 K/uL 0.00-0.00 (test vhdf=1642) TOTAL COUNTED (BEAKER) (test dvup=7355) 100 WBC MORPHOLOGY (BEAKER) (test thrv=729) Normal PLT MORPHOLOGY (BEAKER) (test ewbc=294) Normal POLYCHROMATOPHILLIC RBCS(BEAKER) (test mcaz=624) 1+ few ANISOCYTOSIS (BEAKER) (test bfcp=128) 1+ few MICROCYTES (BEAKER) (test urnz=897) 1+ few ARTIFACT (CELLAVISION)(BEAKER) (test hokt=1642) Present PLATELET CONCENTRATION (CELLAVISION)(BEAKER) (test Adequate rjoj=3111) Received comment: User comments: Slide comments:BLOOD [id number] 00:00:00 Test Item Value Reference Range Comments CULTURE (BEAKER) (test jtsj=4556) No growth in 5 days CBC W/PLT COUNT & AUTO [id number] 10:34:00 Test Item Value Reference Range Comments WHITE BLOOD CELL COUNT (BEAKER) (test fgvk=302) 11.3 K/ L 3.5-10.5 RED BLOOD CELL COUNT (BEAKER) (test kqoq=961) 3.18 M/ L 3.93-5.22 HEMOGLOBIN (BEAKER) (test gcyi=186) 9.7 GM/DL 11.2-15.7 HEMATOCRIT (BEAKER) (test ffio=342) 30.1 % 34.1-44.9 MEAN CORPUSCULAR VOLUME (BEAKER) (test huvm=375) 94.7 fL 79.4-94.8 MEAN CORPUSCULAR HEMOGLOBIN (BEAKER) (test 30.5 pg 25.6-32.2 dzhj=550) MEAN CORPUSCULAR HEMOGLOBIN CONC (BEAKER) (test 32.2 GM/DL 32.2-35.5 urwo=091) RED CELL DISTRIBUTION WIDTH (BEAKER) (test 19.1 % 11.7-14.4 reqw=662) PLATELET COUNT (BEAKER) (test izay=056) 261 K/CU MM 150-450 MEAN PLATELET VOLUME (BEAKER) (test awms=499) 8.0 fL 9.4-12.3 NUCLEATED RED BLOOD CELLS (BEAKER) (test 0 /100 WBC 0-0 wbsa=057) (CELLAVISION MANUAL DIFF)2018-02-13 10:34:00 Test Item Value Reference Range Comments NEUTROPHILS - REL (CELLAVISION)(BEAKER) (test 54 % hgpf=3956) LYMPHOCYTES - REL (CELLAVISION)(BEAKER) (test 15 % djpb=2236) MONOCYTES - REL (CELLAVISION)(BEAKER) (test 12 % iufm=8849) EOSINOPHILS - REL (CELLAVISION)(BEAKER) (test 1 % iyta=1532) BASOPHILS - REL (CELLAVISION)(BEAKER) (test 1 % pyuu=4146) METAMYELOCYTES - REL (CELLAVISION)(BEAKER) (test 3 % 0-0 semd=9150) MYELOCYTES - REL (CELLAVISION)(BEAKER) (test 3 % 0-0 mvzy=5947) BANDS - REL (CELLAVISION)(BEAKER) (test losl=3741) 11 % 0-10 NEUTROPHILS - ABS (CELLAVISION)(BEAKER) (test 6.10 K/ul 1.56-6.13 krdy=2532) LYMPHOCYTES - ABS (CELLAVISION)(BEAKER) (test 1.70 K/ul 1.18-3.74 nghd=7683) MONOCYTES - ABS (CELLAVISION)(BEAKER) (test 1.36 K/uL 0.24-0.36 mqkm=4355) EOSINOPHILS - ABS (CELLAVISION)(BEAKER) (test 0.11 K/uL 0.04-0.36 olgr=4755) BASOPHILS - ABS (CELLAVISION)(BEAKER) (test 0.11 K/uL 0.01-0.08 alsk=9017) METAMYELOCYTES - ABS (CELLAVISION)(BEAKER) (test 0.34 K/uL 0.00-0.00 vxuc=0362) MYELOCYTES-ABS (CELLAVISION)(BEAKER) (test 0.34 K/uL 0.00-0.00 ngrx=8722) BANDS - ABS (CELLAVISION)(BEAKER) (test pklk=4932) 1.24 K/uL 0.00-0.80 TOTAL COUNTED (BEAKER) (test mgpa=4512) 100 WBC MORPHOLOGY (BEAKER) (test mvww=770) Normal PLT MORPHOLOGY (BEAKER) (test kfdg=706) Normal POLYCHROMATOPHILLIC RBCS(BEAKER) (test rvvt=848) 1+ few ANISOCYTOSIS (BEAKER) (test errj=159) 1+ few POIKILOCYTES (BEAKER) (test zsho=599) 1+ few ARTIFACT (CELLAVISION)(BEAKER) (test fgax=7690) Present PLATELET CONCENTRATION (CELLAVISION)(BEAKER) (test Adequate ifuy=7864) Received comment: User comments: Slide comments:BASIC METABOLIC [id number] 05:05:00 Test Item Value Reference Range Comments SODIUM (BEAKER) (test 136 meq/L 136-145 zadr=070) POTASSIUM (BEAKER) (test 3.3 meq/L 3.5-5.1 xead=519) CHLORIDE (BEAKER) (test 110 meq/L 98-107 oejq=688) CO2 (BEAKER) (test 20 meq/L 22-29 yjfd=078) BLOOD UREA NITROGEN 6 mg/dL 7-21 (BEAKER) (test ovcc=937) CREATININE (BEAKER) (test 0.71 mg/dL 0.57-1.25 ygyj=019) GLUCOSE RANDOM (BEAKER) 91 mg/dL 70-105 (test dgan=663) CALCIUM (BEAKER) (test 8.4 mg/dL 8.4-10.2 getj=046) EGFR (BEAKER) (test 84 mL/min/1.73 sq m ESTIMATED GFR IS NOT jvuo=5154) ACCURATE CREATININE CLEARANCE IN PREDICTING GLOMERULAR FILTRATION RATE. ESTIMATED GFR IS NOT APPLICABLE FOR DIALYSIS PATIENTS. MAUREEN, [id number] 14:51:00Reason for exam:->bilateral nephrostomy tube exchange, patient has MRSA, possible colonization oftubesFINAL REPORT Bilateral nephrostomy drain examination and exchangePertinent clinical information: MRSAComparison : December 2017Modality : Fluoroscopy, eight image(s) submitted for interpretation. Conscious Sedation: Versed 0.5 mg and fentanyl 25 mcg intravenously During the procedure with conscious sedation, the patient was monitored continuously with pulse oximetry and electrocardiography by the attending physician and registered nurse. Physician Patient intraservice face to face Time: 20 minutes Anesthesia: Two percent Lidocaine injected subcutaneously at the insertion site.Approach: Right and left flank Labs sent: Negative Antibiotics: The patient is currently on antibioticsFluoro time (in minutes): 9.5 minutes Number of images: Eight Technique: After informed written consent was obtained, the patient was prepped and draped in the usual sterile manner. Accesswas obtained through the existing catheter. Contrast was injected through the catheter access site. There is no evidence of significant hydronephrosis. Both catheters were exchanged over a guidewire.. The catheters were manipulated with contrast monitoring. The patient tolerated the procedure well. The patient left the department in the same condition. Impression:Successful, uncomplicated exchange of bilateral percutaneous nephrostomy catheters. Bilateral antegrade nephrostograms document overall markedly improved imaging of the upper collecting systems and ureters with no hydronephrosis on the left and minimal hydronephrosis on the right. The catheters are patent. There is no evidence of obstruction or extravasation. Signed: Tami [place] Verified Date/Time: 02/12/2018 14:51:26 Reading Location: [place] [address] Angio Body Reading Room CBC W/PLT COUNT & AUTO [id number] 12:08:00 Test Item Value Reference Range Comments WHITE BLOOD CELL COUNT (BEAKER) (test dmqx=529) 7.8 K/ L 3.5-10.5 RED BLOOD CELL COUNT (BEAKER) (test xqtx=631) 2.07 M/ L 3.93-5.22 HEMOGLOBIN (BEAKER) (test tiri=252) 6.6 GM/DL 11.2-15.7 HEMATOCRIT (BEAKER) (test krzz=624) 21.1 % 34.1-44.9 MEAN CORPUSCULAR VOLUME (BEAKER) (test jvqi=862) 101.9 fL 79.4-94.8 MEAN CORPUSCULAR HEMOGLOBIN (BEAKER) (test 31.9 pg 25.6-32.2 knmf=228) MEAN CORPUSCULAR HEMOGLOBIN CONC (BEAKER) (test 31.3 GM/DL 32.2-35.5 ujqc=338) RED CELL DISTRIBUTION WIDTH (BEAKER) (test 16.1 % 11.7-14.4 jrtr=776) PLATELET COUNT (BEAKER) (test ltoc=238) 253 K/CU MM 150-450 MEAN PLATELET VOLUME (BEAKER) (test uuyr=474) 8.1 fL 9.4-12.3 NUCLEATED RED BLOOD CELLS (BEAKER) (test 0 /100 WBC 0-0 itsq=431) (CELLAVISION MANUAL DIFF)2018-02-12 12:08:00 Test Item Value Reference Range Comments NEUTROPHILS - REL (CELLAVISION)(BEAKER) (test 49 % qpea=5621) LYMPHOCYTES - REL (CELLAVISION)(BEAKER) (test 20 % ypua=0694) MONOCYTES - REL (CELLAVISION)(BEAKER) (test 7 % vifl=0439) METAMYELOCYTES - REL (CELLAVISION)(BEAKER) (test 6 % 0-0 edly=0747) BANDS - REL (CELLAVISION)(BEAKER) (test vfsf=4747) 17 % 0-10 ATYPICAL LYMPHOCYTES - REL (CELLAVISION)(BEAKER) 1 % 0-0 (test hklp=5470) NEUTROPHILS - ABS (CELLAVISION)(BEAKER) (test 3.82 K/ul 1.56-6.13 khzk=3237) LYMPHOCYTES - ABS (CELLAVISION)(BEAKER) (test 1.56 K/ul 1.18-3.74 amvl=2990) MONOCYTES - ABS (CELLAVISION)(BEAKER) (test 0.55 K/uL 0.24-0.36 ludc=0057) METAMYELOCYTES - ABS (CELLAVISION)(BEAKER) (test 0.47 K/uL 0.00-0.00 djhf=7335) BANDS - ABS (CELLAVISION)(BEAKER) (test lqbm=3457) 1.33 K/uL 0.00-0.80 ATYPICAL LYMPHOCYTES - ABS (CELLAVISION)(BEAKER) 0.08 K/uL 0.00-0.00 (test zgtv=2020) TOTAL COUNTED (BEAKER) (test feit=1637) 100 PLT MORPHOLOGY (BEAKER) (test smlt=953) Normal SMUDGE CELLS (BEAKER) (test zmyy=3827) Present POLYCHROMATOPHILLIC RBCS(BEAKER) (test ggqy=324) 1+ few TEAR DROP CELLS (BEAKER) (test dejw=995) 1+ few ARTIFACT (CELLAVISION)(BEAKER) (test ymhk=3341) Present PLATELET CONCENTRATION (CELLAVISION)(BEAKER) (test Adequate wdfh=0002) Received comment: User comments: Slide comments:VANCOMYCIN LEVEL, [id number] 08:17:00 Test Item Value Reference Range Comments VANCOMYCIN TROUGH (BEAKER) (test aciy=063) 18.0 ug/mL 10.0-20.0 [id number] 06:36:00 Test Item Value Reference Range Comments PHOSPHORUS (BEAKER) (test ssyq=917) 3.2 mg/dL 2.3-4.7 [id number] 06:36:00 Test Item Value Reference Range Comments MAGNESIUM (BEAKER) (test hnhb=301) 1.3 mg/dL 1.6-2.6 BASIC METABOLIC [id number] 06:36:00 Test Item Value Reference Range Comments SODIUM (BEAKER) (test 136 meq/L 136-145 idxn=881) POTASSIUM (BEAKER) (test 3.6 meq/L 3.5-5.1 wsuk=486) CHLORIDE (BEAKER) (test 112 meq/L 98-107 peuf=801) CO2 (BEAKER) (test 19 meq/L 22-29 qxjd=368) BLOOD UREA NITROGEN 6 mg/dL 7-21 (BEAKER) (test ikzy=670) CREATININE (BEAKER) (test 0.79 mg/dL 0.57-1.25 nnli=244) GLUCOSE RANDOM (BEAKER) 90 mg/dL 70-105 (test abge=481) CALCIUM (BEAKER) (test 8.5 mg/dL 8.4-10.2 hkor=251) EGFR (BEAKER) (test 74 mL/min/1.73 sq m ESTIMATED GFR IS NOT jcoe=9773) ACCURATE CREATININE CLEARANCE IN PREDICTING GLOMERULAR FILTRATION RATE. ESTIMATED GFR IS NOT APPLICABLE FOR DIALYSIS PATIENTS. BLOOD [id number] 00:00:00 Test Item Value Reference Range Comments CULTURE (BEAKER) (test wkac=8701) No growth in 5 days BLOOD CULTURE IDENTIFICATION [id number] 15:44:00 Test Item Value Reference Range Comments LISTERIA MONOCYTOGENES (test Not detected Not detected acsz=[id number]) STAPHYLOCOCCUS (test Detected Not detected mtcy=2175852) STAPHYLOCOCCUS AUREUS (test Detected Not detected First line therapy: nmzu=0263349) VancomycinID consultation strongly encouraged. Staphylococcus aureus DETECTED MecA DETECTEDReference Range: Not Detected STREPTOCOCCUS (test Not detected Not detected kuzu=9216529) STREPTOCOCCUS AGALACTIAE Not detected Not detected (GROUP B) (test gekq=1129706) STREPTOCOCCUS PNEUMONIAE Not detected Not detected (test llfh=5842143) STREPTOCOCCUS PYOGENES (GROUP Not detected Not detected A) (test xyya=7458256) ACINETOBACTER BAUMANNII (test Not detected Not detected knmy=1123987) HAEMOPHILUS INFLUENZAE (test Not detected Not detected wmas=1930721) NEISSERIA MENINGITIDIS (test Not detected Not detected mgtg=2970324) ENTEROBACTERIACEAE (test Not detected Not detected rrnp=1212929) ENTEROBACTER CLOACOE COMPLEX Not detected Not detected (test qbpd=6481284) KLEBSIELLA OXYTOCA (test Not detected Not detected caom=2436606) KLEBSIELLA PNEUMONIAE (test Not detected Not detected ykxl=2550) PROTEUS (test dymn=1431196) Not detected Not detected SERRATIA MARCESCENS (test Not detected Not detected femr=5734211) CANDELARIA ALBICANS (test Not detected Not detected gvlb=5024918) CANDELARIA GLABRATA (test Not detected Not detected spuv=3105514) CANDELARIA KRUSEI (test Not detected Not detected hkqg=5880652) CANDELARIA PARAPSILOSIS (test Not detected Not detected hrpx=2369760) CANDELARIA TROPICALIS (test Not detected Not detected tgte=8812246) ESCHERICHIA COLI (test Not detected Not detected secr=1804094) METHICILLIN-RESISTANCE GENE Detected Not detected (test pzcf=6110143) VANCOMYCIN-RESISTANCE GENE Not detected (test bcpc=4322406) CARBAPENEM-RESISTANCE GENE Not detected (test vpkx=2896201) ENTEROCOCCUS-BEAKER (test Not detected Not detected ayib=7596693) PSEUDOMONAS AERUGINOSA-BEAKER Not detected Not detected (test vnls=8780726) Other bacteria and resistance markers not targeted by this PCR panel cannot be excluded; therefore clinical correlation and follow up of serology, culture results, and other molecular studies is required. The results are not intended to be used as the sole means for clinical diagnosis or patient management decisions. This sample was tested at the [facility] using the [employer] Blood Culture ID Panel. It is FDA cleared and has been verified and approved by the [facility] for clinical use. This laboratory is CLIA-certified and College ofAmerican Pathologists (CAP)-accredited to perform high complexity testing.CBC W/PLT COUNT & AUTO [id number] 15:25:00 Test Item Value Reference Range Comments WHITE BLOOD CELL COUNT (BEAKER) (test upcg=293) 8.5 K/ L 3.5-10.5 RED BLOOD CELL COUNT (BEAKER) (test iiwj=206) 1.99 M/ L 3.93-5.22 HEMOGLOBIN (BEAKER) (test pnyo=257) 6.5 GM/DL 11.2-15.7 HEMATOCRIT (BEAKER) (test wkee=504) 20.3 % 34.1-44.9 MEAN CORPUSCULAR VOLUME (BEAKER) (test eczg=851) 102.0 fL 79.4-94.8 MEAN CORPUSCULAR HEMOGLOBIN (BEAKER) (test 32.7 pg 25.6-32.2 dpln=096) MEAN CORPUSCULAR HEMOGLOBIN CONC (BEAKER) (test 32.0 GM/DL 32.2-35.5 mujs=912) RED CELL DISTRIBUTION WIDTH (BEAKER) (test 15.9 % 11.7-14.4 xfxh=884) PLATELET COUNT (BEAKER) (test drvd=232) 197 K/CU MM 150-450 MEAN PLATELET VOLUME (BEAKER) (test tbzg=107) 8.2 fL 9.4-12.3 NUCLEATED RED BLOOD CELLS (BEAKER) (test 0 /100 WBC 0-0 qobb=370) (CELLAVISION MANUAL DIFF)2018-02-11 15:25:00 Test Item Value Reference Range Comments NEUTROPHILS - REL (CELLAVISION)(BEAKER) (test 55 % hwam=3417) LYMPHOCYTES - REL (CELLAVISION)(BEAKER) (test 15 % pthg=3042) MONOCYTES - REL (CELLAVISION)(BEAKER) (test 11 % sfsq=3731) EOSINOPHILS - REL (CELLAVISION)(BEAKER) (test 5 % leqa=8179) METAMYELOCYTES - REL (CELLAVISION)(BEAKER) (test 5 % 0-0 xhsd=6235) MYELOCYTES - REL (CELLAVISION)(BEAKER) (test 2 % 0-0 otiy=0508) BANDS - REL (CELLAVISION)(BEAKER) (test fhus=2476) 6 % 0-10 ATYPICAL LYMPHOCYTES - REL (CELLAVISION)(BEAKER) 1 % 0-0 (test ypbq=6414) NEUTROPHILS - ABS (CELLAVISION)(BEAKER) (test 4.68 K/ul 1.56-6.13 qgwl=0206) LYMPHOCYTES - ABS (CELLAVISION)(BEAKER) (test 1.28 K/ul 1.18-3.74 jxaf=7992) MONOCYTES - ABS (CELLAVISION)(BEAKER) (test 0.94 K/uL 0.24-0.36 ndqz=5422) EOSINOPHILS - ABS (CELLAVISION)(BEAKER) (test 0.43 K/uL 0.04-0.36 bakv=5878) METAMYELOCYTES - ABS (CELLAVISION)(BEAKER) (test 0.43 K/uL 0.00-0.00 ealx=5114) MYELOCYTES-ABS (CELLAVISION)(BEAKER) (test 0.17 K/uL 0.00-0.00 jkki=0423) BANDS - ABS (CELLAVISION)(BEAKER) (test crel=4499) 0.51 K/uL 0.00-0.80 ATYPICAL LYMPHOCYTES - ABS (CELLAVISION)(BEAKER) 0.09 K/uL 0.00-0.00 (test lsei=5674) TOTAL COUNTED (BEAKER) (test uhgp=3022) 100 SMUDGE CELLS (BEAKER) (test srot=7803) Present GIANT PLATELETS (BEAKER) (test ycln=017) Present ANISOCYTOSIS (BEAKER) (test umgx=047) 1+ few MICROCYTES (BEAKER) (test symv=966) 1+ few ARTIFACT (CELLAVISION)(BEAKER) (test lvdy=9534) Present PLATELET CONCENTRATION (CELLAVISION)(BEAKER) (test Adequate iegd=7039) Received comment: User comments: Slide comments:COMPREHENSIVE METABOLIC [id number] 11:39:00 Test Item Value Reference Range Comments TOTAL PROTEIN (BEAKER) 5.4 gm/dL 6.0-8.3 (test gifc=493) ALBUMIN (BEAKER) (test 2.3 g/dL 3.5-5.0 aegc=4940) ALKALINE PHOSPHATASE 292 U/L 40-150 (BEAKER) (test nejl=835) BILIRUBIN TOTAL (BEAKER) 0.3 mg/dL 0.2-1.2 (test ciyb=526) SODIUM (BEAKER) (test 131 meq/L 136-145 hgnu=836) POTASSIUM (BEAKER) (test 3.4 meq/L 3.5-5.1 hhrc=406) CHLORIDE (BEAKER) (test 106 meq/L 98-107 lrwn=300) CO2 (BEAKER) (test 19 meq/L 22-29 embf=424) BLOOD UREA NITROGEN 7 mg/dL 7-21 (BEAKER) (test laou=945) CREATININE (BEAKER) (test 0.92 mg/dL 0.57-1.25 rzod=667) GLUCOSE RANDOM (BEAKER) 98 mg/dL 70-105 (test ridn=495) CALCIUM (BEAKER) (test 8.1 mg/dL 8.4-10.2 rpbl=983) AST (SGOT) (BEAKER) (test 16 U/L 5-34 uaxl=001) ALT (SGPT) (BEAKER) (test 27 U/L 6-55 wmsj=194) EGFR (BEAKER) (test 62 mL/min/1.73 sq m ESTIMATED GFR IS NOT dunv=1552) ACCURATE CREATININE CLEARANCE IN PREDICTING GLOMERULAR FILTRATION RATE. ESTIMATED GFR IS NOT APPLICABLE FOR DIALYSIS PATIENTS. BLOOD [id number] 11:34:00 Test Item Value Reference Range Comments CULTURE (BEAKER) (test METHICILLIN RESISTANT From Anaerobic Bottle jovn=9319) STAPHYLOCOCCUS AUREUS Only Methicillin resistant Staphylococcus aureus Clindamycin (test code=10) Erythromycin (test code=4) Linezolid (test code=40) Nitrofurantoin (test code=23) Oxacillin (test code=14) Rifampin (test code=43) Tetracycline (test code=2) Trimethoprim + Sulfamethoxazole (test code=47) Vancomycin (test code=13) GRAM STAIN RESULT From anaerobic bottle (BEAKER) (test fdpe=2898) only: gram positive cocci in clusters [id number] 10:32:00 Test Item Value Reference Range Comments PROTIME (BEAKER) (test uloh=576) 15.3 seconds 11.7-14.7 INR (BEAKER) (test nhks=301) 1.2 <=5.9 PARTIAL THROMBOPLASTIN TIME (BEAKER) (test 38.8 seconds 22.5-36.0 rptb=023) RECOMMENDED COUMADIN/WARFARIN INR THERAPY RANGESSTANDARD DOSE: 2.0 - 3.0 Includes: PROPHYLAXIS forvenous thrombosis, systemic embolization; TREATMENT for venous thrombosis and/or pulmonary embolus.HIGH RISK: Target INR is 2.5-3.5 for patients with mechanical heart valves.VANCOMYCIN LEVEL, [id number] 20: 21:00 Test Item Value Reference Range Comments VANCOMYCIN TROUGH (BEAKER) (test rpfw=570) 9.0 ug/mL 10.0-20.0 Hold further dosing for level > 20, alert MD and [id number] 11: 27:00 Test Item Value Reference Range Comments CREATININE (BEAKER) (test 0.84 mg/dL 0.57-1.25 cocv=336) EGFR (BEAKER) (test 69 mL/min/1.73 sq m ESTIMATED GFR IS NOT lepb=3715) ACCURATE CREATININE CLEARANCE IN PREDICTING GLOMERULAR FILTRATION RATE. ESTIMATED GFR IS NOT APPLICABLE FOR DIALYSIS PATIENTS. BLOOD [id number] 11:11:00 Test Item Value Reference Range Comments CULTURE (BEAKER) From Aerobic And Anaerobic (test onth=5986) Bottles Same organism has been isolated from cultures(s) of the same body site within 3 days. Repeat identification and susceptibility testing performed only after consultation with the clinical microbiology laboratory.Refer to previous culture ofMethicillin resistant Staphylococcus aureus GRAM STAIN RESULT From aerobic and (BEAKER) (test anaerobic bottles: rmya=7865) gram positive cocci in clusters URINALYSIS W/ REFLEX URINE [id number] 08:06:00 Test Item Value Reference Range Comments COLOR (BEAKER) (test eezt=166) Khadra CLARITY (BEAKER) (test llzh=621) Cloudy SPECIFIC GRAVITY UA (BEAKER) (test ydbp=301) 1.014 1.001-1.035 PH UA (BEAKER) (test bxvo=958) 7.5 5.0-8.0 PROTEIN UA (BEAKER) (test ezbb=653) 300 mg/dL Negative GLUCOSE UA (BEAKER) (test sgtp=457) Negative Negative KETONES UA (BEAKER) (test wesq=240) Negative Negative BILIRUBIN UA (BEAKER) (test xhem=601) Negative Negative BLOOD UA (BEAKER) (test oxpq=984) Large Negative NITRITE UA (BEAKER) (test dpcb=050) Negative Negative LEUKOCYTE ESTERASE UA (BEAKER) (test dzix=208) Large Negative UROBILINOGEN UA (BEAKER) (test lxak=121) 0.2 mg/dL 0.2-1.0 RBC UA (BEAKER) (test fudv=380) > /HPF WBC UA (BEAKER) (test pzey=287) > /HPF BACTERIA (BEAKER) (test ahvo=288) Many SQUAMOUS EPITHELIAL (BEAKER) (test dbkg=170) 9 /HPF YEAST (BEAKER) (test qtdn=0920) Moderate SOURCE(BEAKER) (test fzsz=3299) BLOOD CULTURE IDENTIFICATION [id number] 11:40:00 Test Item Value Reference Range Comments LISTERIA MONOCYTOGENES (test Not detected Not detected nrat=[id number]) STAPHYLOCOCCUS (test Detected Not detected tusc=[id number]) STAPHYLOCOCCUS AUREUS (test Detected Not detected First line therapy: wzwk=[id number]) VancomycinID consultation strongly encouraged. Staphylococcus aureus DETECTED MecA DETECTEDReference Range: Not Detected STREPTOCOCCUS (test Not detected Not detected pvlj=[id number]) STREPTOCOCCUS AGALACTIAE Not detected Not detected (GROUP B) (test zqdt=2633854) STREPTOCOCCUS PNEUMONIAE Not detected Not detected (test lzuk=6747305) STREPTOCOCCUS PYOGENES (GROUP Not detected Not detected A) (test ctcp=1156058) ACINETOBACTER BAUMANNII (test Not detected Not detected drmc=6658308) HAEMOPHILUS INFLUENZAE (test Not detected Not detected bxmi=6792499) NEISSERIA MENINGITIDIS (test Not detected Not detected aynu=2539169) ENTEROBACTERIACEAE (test Not detected Not detected eudw=9420624) ENTEROBACTER CLOACOE COMPLEX Not detected Not detected (test frml=8455991) KLEBSIELLA OXYTOCA (test Not detected Not detected prxj=3775127) KLEBSIELLA PNEUMONIAE (test Not detected Not detected rqru=7085) PROTEUS (test mzsp=1910695) Not detected Not detected SERRATIA MARCESCENS (test Not detected Not detected qgfg=9745107) CANDELARIA ALBICANS (test Not detected Not detected areg=2124170) CANDELARIA GLABRATA (test Not detected Not detected ffgx=0548602) CANDELARIA KRUSEI (test Not detected Not detected knxy=5875661) CANDELARIA PARAPSILOSIS (test Not detected Not detected vlyx=3651052) CANDELARIA TROPICALIS (test Not detected Not detected qlzu=4935331) ESCHERICHIA COLI (test Not detected Not detected suja=0312249) METHICILLIN-RESISTANCE GENE Detected Not detected (test grgc=8943360) VANCOMYCIN-RESISTANCE GENE Not detected (test srst=9550263) CARBAPENEM-RESISTANCE GENE Not detected (test cywb=4686571) ENTEROCOCCUS-BEAKER (test Not detected Not detected yxxf=2013876) PSEUDOMONAS AERUGINOSA-BEAKER Not detected Not detected (test swvs=5086456) Other bacteria and resistance markers not targeted by this PCR panel cannot be excluded; therefore clinical correlation and follow up of serology, culture results, and other molecular studies is required. The results are not intended to be used as the sole means for clinical diagnosis or patient management decisions. This sample was tested at the [facility] using the [employer] Blood Culture ID Panel. It is FDA cleared and has been verified and approved by the [facility] for clinical use. This laboratory is CLIA-certified and College ofAmerican Pathologists (CAP)-accredited to perform high complexity testing.[id number] 19:10:00 Test Item Value Reference Range Comments PROCALCITONIN (BEAKER) (test kkql=8155) 0.77 ng/mL <0.05 SEPSIS RISK (ng/mL)Low: 0.05-0.50Intermediate: 0.51-2.00High: & gt;=2.01LACTIC ACID, VENOUS, WHOLE [id number] 18:42:00 Test Item Value Reference Range Comments LACTATE BLOOD VENOUS (2) (BEAKER) (test 0.9 mmol/L 0.5-2.2 moov=1647) Effective 08/26/2015: Units/Reference Range ChangeNew: 0.5-2.2 mmol/L Previous: 5 -20 mg/dLURINALYSIS W/ REFLEX URINE [id number] 17:52:00 Test Item Value Reference Range Comments COLOR (BEAKER) (test urpw=457) Yellow CLARITY (BEAKER) (test itsk=584) Cloudy SPECIFIC GRAVITY UA (BEAKER) (test agie=215) 1.011 1.001-1.035 PH UA (BEAKER) (test vera=096) 6.5 5.0-8.0 PROTEIN UA (BEAKER) (test rjai=285) 300 mg/dL Negative GLUCOSE UA (BEAKER) (test qqdz=308) 200 mg/dL Negative KETONES UA (BEAKER) (test bime=002) 20 mg/dL Negative BILIRUBIN UA (BEAKER) (test meqt=298) Negative Negative BLOOD UA (BEAKER) (test jcwu=441) Moderate Negative NITRITE UA (BEAKER) (test xzto=881) Positive Negative LEUKOCYTE ESTERASE UA (BEAKER) (test ovxy=627) Large Negative UROBILINOGEN UA (BEAKER) (test xrmz=675) 0.2 mg/dL 0.2-1.0 RBC UA (BEAKER) (test lptf=124) 0 /HPF WBC UA (BEAKER) (test elnn=465) > /HPF BACTERIA (BEAKER) (test eiij=576) Many SOURCE(BEAKER) (test bkdl=7342) CBC W/PLT COUNT & AUTO [id number] 10:20:00 Test Item Value Reference Range Comments WHITE BLOOD CELL COUNT (BEAKER) (test kxvn=746) 4.9 K/ L 3.5-10.5 RED BLOOD CELL COUNT (BEAKER) (test jcaw=112) 2.35 M/ L 3.93-5.22 HEMOGLOBIN (BEAKER) (test dxlx=933) 7.8 GM/DL 11.2-15.7 HEMATOCRIT (BEAKER) (test ubyc=614) 23.4 % 34.1-44.9 MEAN CORPUSCULAR VOLUME (BEAKER) (test mqak=751) 99.6 fL 79.4-94.8 MEAN CORPUSCULAR HEMOGLOBIN (BEAKER) (test 33.2 pg 25.6-32.2 nrvb=801) MEAN CORPUSCULAR HEMOGLOBIN CONC (BEAKER) (test 33.3 GM/DL 32.2-35.5 lnqi=039) RED CELL DISTRIBUTION WIDTH (BEAKER) (test 15.8 % 11.7-14.4 xfcv=554) PLATELET COUNT (BEAKER) (test hxid=581) 146 K/CU MM 150-450 MEAN PLATELET VOLUME (BEAKER) (test nzgb=916) 8.1 fL 9.4-12.3 NUCLEATED RED BLOOD CELLS (BEAKER) (test 0 /100 WBC 0-0 uyol=331) (CELLAVISION MANUAL DIFF)2018-02-07 10:20:00 Test Item Value Reference Range Comments NEUTROPHILS - REL (CELLAVISION)(BEAKER) (test 47 % ppfm=2900) LYMPHOCYTES - REL (CELLAVISION)(BEAKER) (test 22 % gixl=0661) MONOCYTES - REL (CELLAVISION)(BEAKER) (test 3 % xztt=2250) EOSINOPHILS - REL (CELLAVISION)(BEAKER) (test 1 % gyua=7489) BANDS - REL (CELLAVISION)(BEAKER) (test wmuf=5309) 27 % 0-10 NEUTROPHILS - ABS (CELLAVISION)(BEAKER) (test 2.30 K/ul 1.56-6.13 uhkk=3988) LYMPHOCYTES - ABS (CELLAVISION)(BEAKER) (test 1.08 K/ul 1.18-3.74 flgr=7170) MONOCYTES - ABS (CELLAVISION)(BEAKER) (test 0.15 K/uL 0.24-0.36 cjjm=8650) EOSINOPHILS - ABS (CELLAVISION)(BEAKER) (test 0.05 K/uL 0.04-0.36 lnfc=7844) BANDS - ABS (CELLAVISION)(BEAKER) (test iurv=8826) 1.32 K/uL 0.00-0.80 TOTAL COUNTED (BEAKER) (test nish=1942) 100 WBC MORPHOLOGY (BEAKER) (test pzay=511) Normal PLT MORPHOLOGY (BEAKER) (test vybo=472) Normal POLYCHROMATOPHILLIC RBCS(BEAKER) (test etpm=465) 1+ few ANISOCYTOSIS (BEAKER) (test pjjp=901) 1+ few MICROCYTES (BEAKER) (test dsab=659) 1+ few ARTIFACT (CELLAVISION)(BEAKER) (test xqht=7484) Present PLATELET CONCENTRATION (CELLAVISION)(BEAKER) (test Decreased ewbd=6005) Received comment: User comments: Slide comments:COMPREHENSIVE METABOLIC [id number] 08:06:00 Test Item Value Reference Range Comments TOTAL PROTEIN (BEAKER) 6.5 gm/dL 6.0-8.3 (test phop=245) ALBUMIN (BEAKER) (test 2.8 g/dL 3.5-5.0 tlpl=3958) ALKALINE PHOSPHATASE 365 U/L 40-150 (BEAKER) (test djod=347) BILIRUBIN TOTAL (BEAKER) 0.8 mg/dL 0.2-1.2 (test lbzw=861) SODIUM (BEAKER) (test 128 meq/L 136-145 rdde=518) POTASSIUM (BEAKER) (test 4.0 meq/L 3.5-5.1 pzrf=154) CHLORIDE (BEAKER) (test 98 meq/L 98-107 lceb=877) CO2 (BEAKER) (test 19 meq/L 22-29 mklz=870) BLOOD UREA NITROGEN 16 mg/dL 7-21 (BEAKER) (test zhqu=815) CREATININE (BEAKER) (test 1.06 mg/dL 0.57-1.25 fwqv=562) GLUCOSE RANDOM (BEAKER) 112 mg/dL 70-105 (test ebyr=892) CALCIUM (BEAKER) (test 9.3 mg/dL 8.4-10.2 rito=201) AST (SGOT) (BEAKER) (test 29 U/L 5-34 ebgi=325) ALT (SGPT) (BEAKER) (test 34 U/L 6-55 nixb=855) EGFR (BEAKER) (test 53 mL/min/1.73 sq m ESTIMATED GFR IS NOT xcxi=5362) ACCURATE CREATININE CLEARANCE IN PREDICTING GLOMERULAR FILTRATION RATE. ESTIMATED GFR IS NOT APPLICABLE FOR DIALYSIS PATIENTS. CBC W/PLT COUNT & AUTO [id number] 22:06:00 Test Item Value Reference Range Comments WHITE BLOOD CELL COUNT (BEAKER) (test pder=914) 4.1 K/ L 3.5-10.5 RED BLOOD CELL COUNT (BEAKER) (test grji=558) 2.22 M/ L 3.93-5.22 HEMOGLOBIN (BEAKER) (test pchl=013) 7.2 GM/DL 11.2-15.7 HEMATOCRIT (BEAKER) (test eokx=151) 22.1 % 34.1-44.9 MEAN CORPUSCULAR VOLUME (BEAKER) (test pmlg=974) 99.5 fL 79.4-94.8 MEAN CORPUSCULAR HEMOGLOBIN (BEAKER) (test 32.4 pg 25.6-32.2 zrpa=041) MEAN CORPUSCULAR HEMOGLOBIN CONC (BEAKER) (test 32.6 GM/DL 32.2-35.5 oubk=526) RED CELL DISTRIBUTION WIDTH (BEAKER) (test 15.6 % 11.7-14.4 wvbw=325) PLATELET COUNT (BEAKER) (test xjzf=995) 127 K/CU MM 150-450 MEAN PLATELET VOLUME (BEAKER) (test qygd=125) 8.1 fL 9.4-12.3 NUCLEATED RED BLOOD CELLS (BEAKER) (test 0 /100 WBC 0-0 fbzs=345) (CELLAVISION MANUAL DIFF)2018-02-06 22:06:00 Test Item Value Reference Range Comments NEUTROPHILS - REL (CELLAVISION)(BEAKER) (test 33 % uuyi=0020) LYMPHOCYTES - REL (CELLAVISION)(BEAKER) (test 19 % ckry=5136) MONOCYTES - REL (CELLAVISION)(BEAKER) (test 10 % ejfj=7661) EOSINOPHILS - REL (CELLAVISION)(BEAKER) (test 1 % vgkx=5689) METAMYELOCYTES - REL (CELLAVISION)(BEAKER) (test 3 % 0-0 vizu=1131) BANDS - REL (CELLAVISION)(BEAKER) (test lprj=8153) 33 % 0-10 ATYPICAL LYMPHOCYTES - REL (CELLAVISION)(BEAKER) 1 % 0-0 (test obfd=2152) NEUTROPHILS - ABS (CELLAVISION)(BEAKER) (test 1.35 K/ul 1.56-6.13 mybn=9601) LYMPHOCYTES - ABS (CELLAVISION)(BEAKER) (test 0.78 K/ul 1.18-3.74 lccx=6412) MONOCYTES - ABS (CELLAVISION)(BEAKER) (test 0.41 K/uL 0.24-0.36 cciz=7737) EOSINOPHILS - ABS (CELLAVISION)(BEAKER) (test 0.04 K/uL 0.04-0.36 nqxz=3381) METAMYELOCYTES - ABS (CELLAVISION)(BEAKER) (test 0.12 K/uL 0.00-0.00 pxwz=0792) BANDS - ABS (CELLAVISION)(BEAKER) (test kgmc=8365) 1.35 K/uL 0.00-0.80 ATYPICAL LYMPHOCYTES - ABS (CELLAVISION)(BEAKER) 0.04 K/uL 0.00-0.00 (test qmtt=8468) TOTAL COUNTED (BEAKER) (test wqng=9049) 100 PLT MORPHOLOGY (BEAKER) (test qxkr=148) Normal DOHLE BODIES (BEAKER) (test zinm=936) Present TOXIC GRANULATION (BEAKER) (test matj=242) Present POLYCHROMATOPHILLIC RBCS(BEAKER) (test gsbu=942) 1+ few ANISOCYTOSIS (BEAKER) (test kkvb=566) 1+ few MICROCYTES (BEAKER) (test xwyp=000) 1+ few POIKILOCYTES (BEAKER) (test smcm=849) 1+ few ROULEAUX (BEAKER) (test vvsk=510) 1+ few TEAR DROP CELLS (BEAKER) (test zlly=657) 1+ few ARTIFACT (CELLAVISION)(BEAKER) (test mnbn=4367) Present PLATELET CONCENTRATION (CELLAVISION)(BEAKER) (test Decreased azye=9560) Received comment: User comments: Slide comments:[id number] 22:03:00 Test Item Value Reference Range Comments PROCALCITONIN (BEAKER) (test zfgu=5671) 0.60 ng/mL <0.05 SEPSIS RISK (ng/mL)Low: 0.05-0.50Intermediate: 0.51-2.00High: & gt;=2.01COMPREHENSIVE METABOLIC [id number] 21:40:00 Test Item Value Reference Range Comments TOTAL PROTEIN (BEAKER) 6.1 gm/dL 6.0-8.3 (test cnis=024) ALBUMIN (BEAKER) (test 2.8 g/dL 3.5-5.0 selx=9555) ALKALINE PHOSPHATASE 333 U/L 40-150 (BEAKER) (test yjoh=738) BILIRUBIN TOTAL (BEAKER) 0.6 mg/dL 0.2-1.2 (test iitf=559) SODIUM (BEAKER) (test 127 meq/L 136-145 pwsq=274) POTASSIUM (BEAKER) (test 4.2 meq/L 3.5-5.1 fctp=886) CHLORIDE (BEAKER) (test 96 meq/L 98-107 kvvp=311) CO2 (BEAKER) (test 20 meq/L 22-29 cosf=765) BLOOD UREA NITROGEN 16 mg/dL 7-21 (BEAKER) (test topx=911) CREATININE (BEAKER) (test 0.98 mg/dL 0.57-1.25 lpof=868) GLUCOSE RANDOM (BEAKER) 125 mg/dL 70-105 (test dnii=896) CALCIUM (BEAKER) (test 8.9 mg/dL 8.4-10.2 qxmp=307) AST (SGOT) (BEAKER) (test 30 U/L 5-34 xtbp=116) ALT (SGPT) (BEAKER) (test 34 U/L 6-55 dcjo=411) EGFR (BEAKER) (test 58 mL/min/1.73 sq m ESTIMATED GFR IS NOT vnqj=0356) ACCURATE CREATININE CLEARANCE IN PREDICTING GLOMERULAR FILTRATION RATE. ESTIMATED GFR IS NOT APPLICABLE FOR DIALYSIS PATIENTS. URINALYSIS W/ REFLEX URINE [id number] 17:08:00 Test Item Value Reference Range Comments COLOR (BEAKER) (test tkdr=315) Yellow CLARITY (BEAKER) (test avpi=353) Hazy SPECIFIC GRAVITY UA (BEAKER) (test wsqs=443) 1.007 1.001-1.035 PH UA (BEAKER) (test wrrk=674) 7.0 5.0-8.0 PROTEIN UA (BEAKER) (test ntxk=822) 50 mg/dL Negative GLUCOSE UA (BEAKER) (test bsqp=134) Negative Negative KETONES UA (BEAKER) (test nvhd=322) Negative Negative BILIRUBIN UA (BEAKER) (test vkhf=987) Negative Negative BLOOD UA (BEAKER) (test rvjd=485) Moderate Negative NITRITE UA (BEAKER) (test iiti=220) Negative Negative LEUKOCYTE ESTERASE UA (BEAKER) (test gkao=699) Large Negative UROBILINOGEN UA (BEAKER) (test akzt=412) 0.2 mg/dL 0.2-1.0 RBC UA (BEAKER) (test qvrc=873) 6 /HPF WBC UA (BEAKER) (test xwdn=114) > /HPF MUCUS (BEAKER) (test szuc=3635) Rare SQUAMOUS EPITHELIAL (BEAKER) (test hcuj=353) < /HPF CRYSTALS, URINE (BEAKER) (test kqix=3619) Occasional SOURCE(BEAKER) (test glaa=5108) URINALYSIS W/ REFLEX URINE [id number] 17:08:00 Test Item Value Reference Range Comments COLOR (BEAKER) (test djep=231) Yellow CLARITY (BEAKER) (test chqq=706) Hazy SPECIFIC GRAVITY UA (BEAKER) (test qeke=959) 1.018 1.001-1.035 PH UA (BEAKER) (test yixy=460) 6.5 5.0-8.0 PROTEIN UA (BEAKER) (test uldy=836) 70 mg/dL Negative GLUCOSE UA (BEAKER) (test ndfk=200) Negative Negative KETONES UA (BEAKER) (test heus=459) Negative Negative BILIRUBIN UA (BEAKER) (test tham=872) Negative Negative BLOOD UA (BEAKER) (test akdj=702) Moderate Negative NITRITE UA (BEAKER) (test bztc=355) Positive Negative LEUKOCYTE ESTERASE UA (BEAKER) (test qghi=499) Trace Negative UROBILINOGEN UA (BEAKER) (test xura=884) 3.0 mg/dL 0.2-1.0 RBC UA (BEAKER) (test iluj=004) 8 /HPF WBC UA (BEAKER) (test voyi=281) 4 /HPF BACTERIA (BEAKER) (test jvxl=376) Occasional GRANULAR CASTS (BEAKER) (test wxqc=591) 1 /LPF YEAST (BEAKER) (test jsdt=4361) Occasional SOURCE(BEAKER) (test fuzf=1773) CBC W/PLT COUNT & AUTO [id number] 06:15:00 Test Item Value Reference Range Comments WHITE BLOOD CELL COUNT (BEAKER) (test vrlf=637) 4.2 K/ L 3.5-10.5 RED BLOOD CELL COUNT (BEAKER) (test rqrk=264) 2.45 M/ L 3.93-5.22 HEMOGLOBIN (BEAKER) (test fsqj=435) 8.1 GM/DL 11.2-15.7 HEMATOCRIT (BEAKER) (test bwtt=040) 25.0 % 34.1-44.9 MEAN CORPUSCULAR VOLUME (BEAKER) (test kawk=475) 102.0 fL 79.4-94.8 MEAN CORPUSCULAR HEMOGLOBIN (BEAKER) (test 33.1 pg 25.6-32.2 vxqv=613) MEAN CORPUSCULAR HEMOGLOBIN CONC (BEAKER) (test 32.4 GM/DL 32.2-35.5 tpde=163) RED CELL DISTRIBUTION WIDTH (BEAKER) (test 15.7 % 11.7-14.4 jeqp=198) PLATELET COUNT (BEAKER) (test qzqz=920) 135 K/CU MM 150-450 MEAN PLATELET VOLUME (BEAKER) (test kujj=948) 8.7 fL 9.4-12.3 NUCLEATED RED BLOOD CELLS (BEAKER) (test 0 /100 WBC 0-0 ofny=982) NEUTROPHILS RELATIVE PERCENT (BEAKER) (test 72 % mepj=224) LYMPHOCYTES RELATIVE PERCENT (BEAKER) (test 18 % wewo=948) MONOCYTES RELATIVE PERCENT (BEAKER) (test 8 % wwyz=363) EOSINOPHILS RELATIVE PERCENT (BEAKER) (test 2 % kdex=602) BASOPHILS RELATIVE PERCENT (BEAKER) (test 0 % ngpl=481) NEUTROPHILS ABSOLUTE COUNT (BEAKER) (test 3.03 K/ L 1.56-6.13 jibo=450) LYMPHOCYTES ABSOLUTE COUNT (BEAKER) (test 0.74 K/ L 1.18-3.74 ovbq=088) MONOCYTES ABSOLUTE COUNT (BEAKER) (test 0.33 K/ L 0.24-0.36 bqan=469) EOSINOPHILS ABSOLUTE COUNT (BEAKER) (test 0.09 K/ L 0.04-0.36 oclw=155) BASOPHILS ABSOLUTE COUNT (BEAKER) (test 0.01 K/ L 0.01-0.08 oudk=963) IMMATURE GRANULOCYTES-RELATIVE PERCENT (BEAKER) 1 % 0-1 (test zdgc=0125) [id number] 06:10:00 Test Item Value Reference Range Comments PHOSPHORUS (BEAKER) (test thlm=454) 2.4 mg/dL 2.3-4.7 [id number] 06:10:00 Test Item Value Reference Range Comments MAGNESIUM (BEAKER) (test fhfq=914) 1.2 mg/dL 1.6-2.6 BASIC METABOLIC [id number] 06:10:00 Test Item Value Reference Range Comments SODIUM (BEAKER) (test 132 meq/L 136-145 hpdh=447) POTASSIUM (BEAKER) (test 4.2 meq/L 3.5-5.1 mdlo=921) CHLORIDE (BEAKER) (test 103 meq/L 98-107 fqlb=638) CO2 (BEAKER) (test 23 meq/L 22-29 rcmm=686) BLOOD UREA NITROGEN 16 mg/dL 7-21 (BEAKER) (test apsc=153) CREATININE (BEAKER) (test 0.86 mg/dL 0.57-1.25 arkh=679) GLUCOSE RANDOM (BEAKER) 97 mg/dL 70-105 (test mbtk=769) CALCIUM (BEAKER) (test 8.8 mg/dL 8.4-10.2 hkox=091) EGFR (BEAKER) (test 68 mL/min/1.73 sq m ESTIMATED GFR IS NOT ysud=5683) ACCURATE CREATININE CLEARANCE IN PREDICTING GLOMERULAR FILTRATION RATE. ESTIMATED GFR IS NOT APPLICABLE FOR DIALYSIS PATIENTS. BASIC METABOLIC [id number] 12:46:00 Test Item Value Reference Range Comments SODIUM (BEAKER) (test 132 meq/L 136-145 wggj=820) POTASSIUM (BEAKER) (test 3.4 meq/L 3.5-5.1 njvz=880) CHLORIDE (BEAKER) (test 102 meq/L 98-107 hknx=376) CO2 (BEAKER) (test 22 meq/L 22-29 wiyq=460) BLOOD UREA NITROGEN 17 mg/dL 7-21 (BEAKER) (test gtia=168) CREATININE (BEAKER) (test 0.78 mg/dL 0.57-1.25 luuw=337) GLUCOSE RANDOM (BEAKER) 115 mg/dL 70-105 (test siaq=958) CALCIUM (BEAKER) (test 8.5 mg/dL 8.4-10.2 wfmm=451) EGFR (BEAKER) (test 76 mL/min/1.73 sq m ESTIMATED GFR IS NOT wjvl=7537) ACCURATE CREATININE CLEARANCE IN PREDICTING GLOMERULAR FILTRATION RATE. ESTIMATED GFR IS NOT APPLICABLE FOR DIALYSIS PATIENTS. BASIC METABOLIC [id number] 06:23:00 Test Item Value Reference Range Comments SODIUM (BEAKER) (test 131 meq/L 136-145 ktoi=042) POTASSIUM (BEAKER) (test 4.2 meq/L 3.5-5.1 guhi=363) CHLORIDE (BEAKER) (test 102 meq/L 98-107 rltb=793) CO2 (BEAKER) (test 22 meq/L 22-29 wjyi=563) BLOOD UREA NITROGEN 17 mg/dL 7-21 (BEAKER) (test gfmj=913) CREATININE (BEAKER) (test 0.73 mg/dL 0.57-1.25 ygrh=318) GLUCOSE RANDOM (BEAKER) 107 mg/dL 70-105 (test doif=960) CALCIUM (BEAKER) (test 8.5 mg/dL 8.4-10.2 knse=873) EGFR (BEAKER) (test 82 mL/min/1.73 sq m ESTIMATED GFR IS NOT cmhk=7114) ACCURATE CREATININE CLEARANCE IN PREDICTING GLOMERULAR FILTRATION RATE. ESTIMATED GFR IS NOT APPLICABLE FOR DIALYSIS PATIENTS. POCT-GLUCOSE [id number] 12:40:00 Test Item Value Reference Range Comments POC-GLUCOSE METER (BEAKER) 137 mg/dL 70-110 TESTED AT [address] (test dwim=8240) [place] [id number] POCT-GLUCOSE [id number] 12:26:00 Test Item Value Reference Range Comments POC-GLUCOSE METER (BEAKER) 101 mg/dL 70-110 TESTED AT [address] (test fmid=7158) [facility] [address] CBC W/PLT COUNT & AUTO [id number] 06:35:00 Test Item Value Reference Range Comments WHITE BLOOD CELL COUNT (BEAKER) (test nxbc=629) 4.4 K/ L 3.5-10.5 RED BLOOD CELL COUNT (BEAKER) (test bzvg=663) 2.64 M/ L 3.93-5.22 HEMOGLOBIN (BEAKER) (test xyia=282) 8.7 GM/DL 11.2-15.7 HEMATOCRIT (BEAKER) (test yvda=887) 27.4 % 34.1-44.9 MEAN CORPUSCULAR VOLUME (BEAKER) (test pdap=303) 103.8 fL 79.4-94.8 MEAN CORPUSCULAR HEMOGLOBIN (BEAKER) (test 33.0 pg 25.6-32.2 gkkw=472) MEAN CORPUSCULAR HEMOGLOBIN CONC (BEAKER) (test 31.8 GM/DL 32.2-35.5 ludl=729) RED CELL DISTRIBUTION WIDTH (BEAKER) (test 16.0 % 11.7-14.4 syxt=043) PLATELET COUNT (BEAKER) (test xywb=727) 162 K/CU MM 150-450 MEAN PLATELET VOLUME (BEAKER) (test jyyu=149) 9.4 fL 9.4-12.3 NUCLEATED RED BLOOD CELLS (BEAKER) (test 0 /100 WBC 0-0 ylgw=714) NEUTROPHILS RELATIVE PERCENT (BEAKER) (test 72 % omzb=544) LYMPHOCYTES RELATIVE PERCENT (BEAKER) (test 14 % mjkq=189) MONOCYTES RELATIVE PERCENT (BEAKER) (test 10 % pyka=504) EOSINOPHILS RELATIVE PERCENT (BEAKER) (test 2 % agbb=914) BASOPHILS RELATIVE PERCENT (BEAKER) (test 0 % sekf=333) NEUTROPHILS ABSOLUTE COUNT (BEAKER) (test 3.13 K/ L 1.56-6.13 ftwx=675) LYMPHOCYTES ABSOLUTE COUNT (BEAKER) (test 0.61 K/ L 1.18-3.74 seor=863) MONOCYTES ABSOLUTE COUNT (BEAKER) (test 0.44 K/ L 0.24-0.36 ikkk=055) EOSINOPHILS ABSOLUTE COUNT (BEAKER) (test 0.10 K/ L 0.04-0.36 zjtg=693) BASOPHILS ABSOLUTE COUNT (BEAKER) (test 0.00 K/ L 0.01-0.08 rqzc=841) IMMATURE GRANULOCYTES-RELATIVE PERCENT (BEAKER) 2 % 0-1 (test xyiq=2922) POCT-GLUCOSE [id number] 06:10:00 Test Item Value Reference Range Comments POC-GLUCOSE METER (BEAKER) 100 mg/dL 70-110 TESTED AT [address] (test qztu=7623) [place] [address] POCT-GLUCOSE [id number] 21:21:00 Test Item Value Reference Range Comments POC-GLUCOSE METER (BEAKER) 117 mg/dL 70-110 TESTED AT [address] (test skmy=1620) [place] [address] POCT-GLUCOSE [id number] 16:35:00 Test Item Value Reference Range Comments POC-GLUCOSE METER (BEAKER) 120 mg/dL 70-110 TESTED AT [address] (test bykg=0515) [place] [address] POCT-GLUCOSE [id number] 12:03:00 Test Item Value Reference Range Comments POC-GLUCOSE METER (BEAKER) 92 mg/dL 70-110 TESTED AT [address] (test dkcc=8459) [place] [address] COMPREHENSIVE METABOLIC [id number] 06:17:00 Test Item Value Reference Range Comments TOTAL PROTEIN (BEAKER) 5.2 gm/dL 6.0-8.3 (test xzmz=052) ALBUMIN (BEAKER) (test 2.9 g/dL 3.5-5.0 akvf=9267) ALKALINE PHOSPHATASE 87 U/L 40-150 (BEAKER) (test aaut=006) BILIRUBIN TOTAL (BEAKER) 0.3 mg/dL 0.2-1.2 (test xjln=169) SODIUM (BEAKER) (test 133 meq/L 136-145 cuqr=338) POTASSIUM (BEAKER) (test 4.2 meq/L 3.5-5.1 xjtv=578) CHLORIDE (BEAKER) (test 105 meq/L 98-107 fcce=046) CO2 (BEAKER) (test 22 meq/L 22-29 cenh=025) BLOOD UREA NITROGEN 30 mg/dL 7-21 (BEAKER) (test nstb=833) CREATININE (BEAKER) (test 0.77 mg/dL 0.57-1.25 ztkd=706) GLUCOSE RANDOM (BEAKER) 85 mg/dL 70-105 (test ogmh=982) CALCIUM (BEAKER) (test 8.5 mg/dL 8.4-10.2 qpxe=781) AST (SGOT) (BEAKER) (test 13 U/L 5-34 xzak=290) ALT (SGPT) (BEAKER) (test 20 U/L 6-55 qzmm=295) EGFR (BEAKER) (test 77 mL/min/1.73 sq m ESTIMATED GFR IS NOT iggo=7128) ACCURATE CREATININE CLEARANCE IN PREDICTING GLOMERULAR FILTRATION RATE. ESTIMATED GFR IS NOT APPLICABLE FOR DIALYSIS PATIENTS. CBC W/PLT COUNT & AUTO [id number] 05:50:00 Test Item Value Reference Range Comments WHITE BLOOD CELL COUNT (BEAKER) (test qvol=857) 7.6 K/ L 3.5-10.5 RED BLOOD CELL COUNT (BEAKER) (test dhmr=131) 2.60 M/ L 3.93-5.22 HEMOGLOBIN (BEAKER) (test vpkh=403) 8.8 GM/DL 11.2-15.7 HEMATOCRIT (BEAKER) (test xyls=591) 27.2 % 34.1-44.9 MEAN CORPUSCULAR VOLUME (BEAKER) (test bqwh=491) 104.6 fL 79.4-94.8 MEAN CORPUSCULAR HEMOGLOBIN (BEAKER) (test 33.8 pg 25.6-32.2 ihrc=644) MEAN CORPUSCULAR HEMOGLOBIN CONC (BEAKER) (test 32.4 GM/DL 32.2-35.5 cvpn=679) RED CELL DISTRIBUTION WIDTH (BEAKER) (test 15.8 % 11.7-14.4 cqpg=788) PLATELET COUNT (BEAKER) (test pzla=757) 175 K/CU MM 150-450 MEAN PLATELET VOLUME (BEAKER) (test woer=320) 9.8 fL 9.4-12.3 NUCLEATED RED BLOOD CELLS (BEAKER) (test 0 /100 WBC 0-0 fwud=402) NEUTROPHILS RELATIVE PERCENT (BEAKER) (test 77 % mpmw=356) LYMPHOCYTES RELATIVE PERCENT (BEAKER) (test 14 % qglf=024) MONOCYTES RELATIVE PERCENT (BEAKER) (test 7 % fgls=221) EOSINOPHILS RELATIVE PERCENT (BEAKER) (test 1 % mnfz=852) BASOPHILS RELATIVE PERCENT (BEAKER) (test 0 % yzra=464) NEUTROPHILS ABSOLUTE COUNT (BEAKER) (test 5.79 K/ L 1.56-6.13 fnly=757) LYMPHOCYTES ABSOLUTE COUNT (BEAKER) (test 1.06 K/ L 1.18-3.74 wvxo=965) MONOCYTES ABSOLUTE COUNT (BEAKER) (test 0.53 K/ L 0.24-0.36 bgtr=342) EOSINOPHILS ABSOLUTE COUNT (BEAKER) (test 0.05 K/ L 0.04-0.36 yybx=264) BASOPHILS ABSOLUTE COUNT (BEAKER) (test 0.01 K/ L 0.01-0.08 dpwz=341) IMMATURE GRANULOCYTES-RELATIVE PERCENT (BEAKER) 2 % 0-1 (test pban=4837) POCT-GLUCOSE [id number] 05:37:00 Test Item Value Reference Range Comments POC-GLUCOSE METER (BEAKER) 91 mg/dL 70-110 TESTED AT [place] [address] [address] (test ialm=8110) [facility] [address] POCT-GLUCOSE [id number] 20:56:00 Test Item Value Reference Range Comments POC-GLUCOSE METER (BEAKER) 148 mg/dL 70-110 TESTED AT [address] (test ljiq=5439) [facility] [address] POCT-GLUCOSE [id number] 16:40:00 Test Item Value Reference Range Comments POC-GLUCOSE METER (BEAKER) 161 mg/dL 70-110 TESTED AT [address] (test dtil=1819) [place] [id number] POCT-GLUCOSE [id number] 12:26:00 Test Item Value Reference Range Comments POC-GLUCOSE METER (BEAKER) 144 mg/dL 70-110 TESTED AT [address] (test plhr=9513) [place] [id number] POCT-GLUCOSE [id number] 08:40:00 Test Item Value Reference Range Comments POC-GLUCOSE METER (BEAKER) 143 mg/dL 70-110 TESTED AT [address] (test mbcr=6902) [place] [id number] BASIC METABOLIC [id number] 06:53:00 Test Item Value Reference Range Comments SODIUM (BEAKER) (test 131 meq/L 136-145 erqn=233) POTASSIUM (BEAKER) (test 4.5 meq/L 3.5-5.1 txaq=361) CHLORIDE (BEAKER) (test 103 meq/L 98-107 itju=774) CO2 (BEAKER) (test 22 meq/L 22-29 ofts=322) BLOOD UREA NITROGEN 33 mg/dL 7-21 (BEAKER) (test uzad=869) CREATININE (BEAKER) (test 0.80 mg/dL 0.57-1.25 jxyf=183) GLUCOSE RANDOM (BEAKER) 119 mg/dL 70-105 (test tzac=691) CALCIUM (BEAKER) (test 8.5 mg/dL 8.4-10.2 nefh=442) EGFR (BEAKER) (test 73 mL/min/1.73 sq m ESTIMATED GFR IS NOT vaha=8524) ACCURATE CREATININE CLEARANCE IN PREDICTING GLOMERULAR FILTRATION RATE. ESTIMATED GFR IS NOT APPLICABLE FOR DIALYSIS PATIENTS. POCT-GLUCOSE [id number] 21:01:00 Test Item Value Reference Range Comments POC-GLUCOSE METER (BEAKER) 151 mg/dL 70-110 TESTED AT [address] (test iajc=5591) [place] [id number] POCT-GLUCOSE [id number] 12:21:00 Test Item Value Reference Range Comments POC-GLUCOSE METER (BEAKER) 109 mg/dL 70-110 TESTED AT [address] (test wyvi=3413) [place] [id number] POCT-GLUCOSE [id number] 08:32:00 Test Item Value Reference Range Comments POC-GLUCOSE METER (BEAKER) 110 mg/dL 70-110 TESTED AT [address] (test dwjc=1136) [place] [address] BASIC METABOLIC [id number] 05:50:00 Test Item Value Reference Range Comments SODIUM (BEAKER) (test 133 meq/L 136-145 cffn=700) POTASSIUM (BEAKER) (test 4.8 meq/L 3.5-5.1 rrda=659) CHLORIDE (BEAKER) (test 104 meq/L 98-107 izhf=536) CO2 (BEAKER) (test 24 meq/L 22-29 xdqt=115) BLOOD UREA NITROGEN 32 mg/dL 7-21 (BEAKER) (test spyb=014) CREATININE (BEAKER) (test 0.84 mg/dL 0.57-1.25 yrup=005) GLUCOSE RANDOM (BEAKER) 114 mg/dL 70-105 (test fmir=936) CALCIUM (BEAKER) (test 8.8 mg/dL 8.4-10.2 ryxk=018) EGFR (BEAKER) (test 69 mL/min/1.73 sq m ESTIMATED GFR IS NOT lgyq=3859) ACCURATE CREATININE CLEARANCE IN PREDICTING GLOMERULAR FILTRATION RATE. ESTIMATED GFR IS NOT APPLICABLE FOR DIALYSIS PATIENTS. POCT-GLUCOSE [id number] 21:09:00 Test Item Value Reference Range Comments POC-GLUCOSE METER (BEAKER) 128 mg/dL 70-110 TESTED AT [address] (test cwom=5728) [place] [id number] POCT-GLUCOSE [id number] 17:54:00 Test Item Value Reference Range Comments POC-GLUCOSE METER (BEAKER) 137 mg/dL 70-110 TESTED AT [address] (test ppcz=8635) [place] [id number] POCT-GLUCOSE [id number] 17:46:00 Test Item Value Reference Range Comments POC-GLUCOSE METER (BEAKER) 165 mg/dL 70-110 TESTED AT [address] (test njjs=5913) [place] [address] POCT-GLUCOSE [id number] 11:29:00 Test Item Value Reference Range Comments POC-GLUCOSE METER (BEAKER) 183 mg/dL 70-110 TESTED AT [address] (test qdgj=1490) [facility] [address] BASIC METABOLIC [id number] 07:54:00 Test Item Value Reference Range Comments SODIUM (BEAKER) (test 130 meq/L 136-145 nppt=042) POTASSIUM (BEAKER) (test 4.9 meq/L 3.5-5.1 blzv=453) CHLORIDE (BEAKER) (test 103 meq/L 98-107 wbgs=595) CO2 (BEAKER) (test 21 meq/L 22-29 owuf=884) BLOOD UREA NITROGEN 35 mg/dL 7-21 (BEAKER) (test kiul=297) CREATININE (BEAKER) (test 0.81 mg/dL 0.57-1.25 jvsm=740) GLUCOSE RANDOM (BEAKER) 103 mg/dL 70-105 (test vqxm=095) CALCIUM (BEAKER) (test 8.5 mg/dL 8.4-10.2 dend=545) EGFR (BEAKER) (test 72 mL/min/1.73 sq m ESTIMATED GFR IS NOT llwy=3059) ACCURATE CREATININE CLEARANCE IN PREDICTING GLOMERULAR FILTRATION RATE. ESTIMATED GFR IS NOT APPLICABLE FOR DIALYSIS PATIENTS. POCT-GLUCOSE [id number] 21:19:00 Test Item Value Reference Range Comments POC-GLUCOSE METER (BEAKER) 105 mg/dL 70-110 TESTED AT [address] (test smwe=9024) [facility] [address] POCT-GLUCOSE [id number] 16:59:00 Test Item Value Reference Range Comments POC-GLUCOSE METER (BEAKER) 136 mg/dL 70-110 TESTED AT [address] (test xxcz=0678) [facility] [address] POCT-GLUCOSE [id number] 11:43:00 Test Item Value Reference Range Comments POC-GLUCOSE METER (BEAKER) 110 mg/dL 70-110 TESTED AT [address] (test dfno=0196) [facility] [address] POCT-GLUCOSE [id number] 08:41:00 Test Item Value Reference Range Comments POC-GLUCOSE METER (BEAKER) 140 mg/dL 70-110 TESTED AT [address] (test khll=2566) [facility] [address] BASIC METABOLIC [id number] 07:22:00 Test Item Value Reference Range Comments SODIUM (BEAKER) (test 130 meq/L 136-145 pczq=455) POTASSIUM (BEAKER) (test 4.5 meq/L 3.5-5.1 ruuh=772) CHLORIDE (BEAKER) (test 103 meq/L 98-107 wvsh=693) CO2 (BEAKER) (test 20 meq/L 22-29 zcov=809) BLOOD UREA NITROGEN 38 mg/dL 7-21 (BEAKER) (test xnyr=573) CREATININE (BEAKER) (test 0.92 mg/dL 0.57-1.25 pvns=048) GLUCOSE RANDOM (BEAKER) 128 mg/dL 70-105 (test hyrl=076) CALCIUM (BEAKER) (test 8.6 mg/dL 8.4-10.2 kfkm=522) EGFR (BEAKER) (test 62 mL/min/1.73 sq m ESTIMATED GFR IS NOT ryir=4746) ACCURATE CREATININE CLEARANCE IN PREDICTING GLOMERULAR FILTRATION RATE. ESTIMATED GFR IS NOT APPLICABLE FOR DIALYSIS PATIENTS. CALCIUM, [id number] 06:37:00 Test Item Value Reference Range Comments CALCIUM IONIZED (BEAKER) (test bvdg=680) 1.13 mmol/L 1.12-1.27 PH, BLOOD (BEAKER) (test kviy=8201) 7.37 POCT-GLUCOSE [id number] 05:02:00 Test Item Value Reference Range Comments POC-GLUCOSE METER (BEAKER) 123 mg/dL 70-110 TESTED AT [address] (test zrno=0115) [place] [id number] OSMOLALITY, [id number] 19:45:00 Test Item Value Reference Range Comments OSMOLALITY URINE (BEAKER) (test cjvb=657) 323 mOsm/kg 40-1400 OSMOLALITY, [id number] 19:42:00 Test Item Value Reference Range Comments OSMOLALITY, SERUM (BEAKER) (test pwpq=944) 285 mOsm/kg 275-295 SODIUM, RANDOM [id number] 19:39:00 Test Item Value Reference Range Comments SODIUM URINE (BEAKER) (test qbdv=175) 37 meq/L Reference Range: No NormalsPOCT-GLUCOSE [id number] 16:45:00 Test Item Value Reference Range Comments POC-GLUCOSE METER (BEAKER) 134 mg/dL 70-110 TESTED AT [address] (test rmhn=2247) [facility] [address] POCT-GLUCOSE [id number] 12:58:00 Test Item Value Reference Range Comments POC-GLUCOSE METER (BEAKER) 93 mg/dL 70-110 TESTED AT [address] (test qxli=3953) [place] [id number] POCT-GLUCOSE [id number] 08:04:00 Test Item Value Reference Range Comments POC-GLUCOSE METER (BEAKER) 101 mg/dL 70-110 TESTED AT [address] (test ktmh=4072) [place] [address] [id number] 06:49:00 Test Item Value Reference Range Comments MAGNESIUM (BEAKER) (test hhry=879) 1.9 mg/dL 1.6-2.6 BASIC METABOLIC [id number] 06:49:00 Test Item Value Reference Range Comments SODIUM (BEAKER) (test 129 meq/L 136-145 daju=101) POTASSIUM (BEAKER) (test 4.4 meq/L 3.5-5.1 ffif=438) CHLORIDE (BEAKER) (test 102 meq/L 98-107 wknq=349) CO2 (BEAKER) (test 19 meq/L 22-29 cvas=847) BLOOD UREA NITROGEN 35 mg/dL 7-21 (BEAKER) (test frwn=284) CREATININE (BEAKER) (test 0.96 mg/dL 0.57-1.25 brqy=700) GLUCOSE RANDOM (BEAKER) 170 mg/dL 70-105 (test taoy=156) CALCIUM (BEAKER) (test 8.5 mg/dL 8.4-10.2 bpsz=207) EGFR (BEAKER) (test 59 mL/min/1.73 sq m ESTIMATED GFR IS NOT tkch=8944) ACCURATE CREATININE CLEARANCE IN PREDICTING GLOMERULAR FILTRATION RATE. ESTIMATED GFR IS NOT APPLICABLE FOR DIALYSIS PATIENTS. POCT-GLUCOSE [id number] 21:04:00 Test Item Value Reference Range Comments POC-GLUCOSE METER (BEAKER) 167 mg/dL 70-110 TESTED AT [address] (test dpgk=6233) [place] [id number] POCT-GLUCOSE [id number] 20:47:00 Test Item Value Reference Range Comments POC-GLUCOSE METER (BEAKER) 106 mg/dL 70-[address] [facility] [address] [facility] (test ycuh=2330) [facility] [address] POCT-GLUCOSE [id number] 17:23:00 Test Item Value Reference Range Comments POC-GLUCOSE METER (BEAKER) 112 mg/dL 70-110 TESTED AT [place] [id number] [facility] (test ddti=1156) [facility] [address] CBC W/PLT COUNT & AUTO [id number] 07:51:00 Test Item Value Reference Range Comments WHITE BLOOD CELL COUNT (BEAKER) (test bxec=673) 7.1 K/ L 3.5-10.5 RED BLOOD CELL COUNT (BEAKER) (test ousq=062) 2.88 M/ L 3.93-5.22 HEMOGLOBIN (BEAKER) (test glzi=683) 9.7 GM/DL 11.2-15.7 HEMATOCRIT (BEAKER) (test sawv=449) 30.2 % 34.1-44.9 MEAN CORPUSCULAR VOLUME (BEAKER) (test tsok=862) 104.9 fL 79.4-94.8 MEAN CORPUSCULAR HEMOGLOBIN (BEAKER) (test 33.7 pg 25.6-32.2 fbdo=927) MEAN CORPUSCULAR HEMOGLOBIN CONC (BEAKER) (test 32.1 GM/DL 32.2-35.5 flwh=603) RED CELL DISTRIBUTION WIDTH (BEAKER) (test 15.6 % 11.7-14.4 ihsg=705) PLATELET COUNT (BEAKER) (test lyue=270) 198 K/CU MM 150-450 MEAN PLATELET VOLUME (BEAKER) (test obwu=501) 10.4 fL 9.4-12.3 NUCLEATED RED BLOOD CELLS (BEAKER) (test 0 /100 WBC 0-0 czdy=196) NEUTROPHILS RELATIVE PERCENT (BEAKER) (test 90 % rgbj=501) LYMPHOCYTES RELATIVE PERCENT (BEAKER) (test 5 % vccn=417) MONOCYTES RELATIVE PERCENT (BEAKER) (test 3 % xhae=241) EOSINOPHILS RELATIVE PERCENT (BEAKER) (test 1 % kfir=318) BASOPHILS RELATIVE PERCENT (BEAKER) (test 0 % huyy=432) NEUTROPHILS ABSOLUTE COUNT (BEAKER) (test 6.41 K/ L 1.56-6.13 vqhh=867) LYMPHOCYTES ABSOLUTE COUNT (BEAKER) (test 0.36 K/ L 1.18-3.74 khso=882) MONOCYTES ABSOLUTE COUNT (BEAKER) (test 0.18 K/ L 0.24-0.36 zzza=041) EOSINOPHILS ABSOLUTE COUNT (BEAKER) (test 0.09 K/ L 0.04-0.36 btte=559) BASOPHILS ABSOLUTE COUNT (BEAKER) (test 0.01 K/ L 0.01-0.08 kwpl=697) IMMATURE GRANULOCYTES-RELATIVE PERCENT (BEAKER) 1 % 0-1 (test sbeu=6318) POCT-GLUCOSE [id number] 07:46:00 Test Item Value Reference Range Comments POC-GLUCOSE METER (BEAKER) 202 mg/dL 70-[address] [facility] [address] [facility] (test ivvb=9359) [facility] [address] [id number] 07:08:00 Test Item Value Reference Range Comments PHOSPHORUS (BEAKER) (test axnp=756) 3.3 mg/dL 2.3-4.7 [id number] 07:08:00 Test Item Value Reference Range Comments MAGNESIUM (BEAKER) (test hmwl=211) 1.6 mg/dL 1.6-2.6 BASIC METABOLIC [id number] 07:08:00 Test Item Value Reference Range Comments SODIUM (BEAKER) (test 131 meq/L 136-145 lglz=024) POTASSIUM (BEAKER) (test 5.0 meq/L 3.5-5.1 qmit=169) CHLORIDE (BEAKER) (test 105 meq/L 98-107 vtsf=727) CO2 (BEAKER) (test 20 meq/L 22-29 meax=347) BLOOD UREA NITROGEN 34 mg/dL 7-21 (BEAKER) (test dhrj=978) CREATININE (BEAKER) (test 0.91 mg/dL 0.57-1.25 inkt=373) GLUCOSE RANDOM (BEAKER) 120 mg/dL 70-105 (test eqay=251) CALCIUM (BEAKER) (test 8.8 mg/dL 8.4-10.2 dqkr=898) EGFR (BEAKER) (test 63 mL/min/1.73 sq m ESTIMATED GFR IS NOT peuk=3324) ACCURATE CREATININE CLEARANCE IN PREDICTING GLOMERULAR FILTRATION RATE. ESTIMATED GFR IS NOT APPLICABLE FOR DIALYSIS PATIENTS. CALCIUM, [id number] 06:52:00 Test Item Value Reference Range Comments CALCIUM IONIZED (BEAKER) (test tqrz=512) 1.13 mmol/L 1.12-1.27 PH, BLOOD (BEAKER) (test udgz=8426) 7.44 POCT-GLUCOSE [id number] 21:19:00 Test Item Value Reference Range Comments POC-GLUCOSE METER (BEAKER) 148 mg/dL 70-110 TESTED AT [address] (test dwlo=6629) [place] [address] [id number] 19:17:00 Test Item Value Reference Range Comments SODIUM (BEAKER) (test ozbj=265) 131 meq/L 136-145 POTASSIUM (BEAKER) (test dpmq=067) 4.6 meq/L 3.5-5.1 CHLORIDE (BEAKER) (test bkpi=454) 104 meq/L 98-107 CO2 (BEAKER) (test nuqs=920) 20 meq/L 22-29 Call [id number] 18:47:00 Test Item Value Reference Range Comments POC-GLUCOSE METER (BEAKER) 116 mg/dL 70-110 TESTED AT [address] (test numu=3353) [place] [address] POCT-GLUCOSE [id number] 13:02:00 Test Item Value Reference Range Comments POC-GLUCOSE METER (BEAKER) 112 mg/dL 70-110 TESTED AT [address] (test luqo=1225) [place] [address] POCT-GLUCOSE [id number] 08:32:00 Test Item Value Reference Range Comments POC-GLUCOSE METER (BEAKER) 128 mg/dL 70-110 TESTED AT [address] (test vtte=2205) [place] [address] [id number] 06:07:00 Test Item Value Reference Range Comments PHOSPHORUS (BEAKER) (test mcmi=143) 2.7 mg/dL 2.3-4.7 [id number] 06:07:00 Test Item Value Reference Range Comments MAGNESIUM (BEAKER) (test avtf=389) 1.7 mg/dL 1.6-2.6 BASIC METABOLIC [id number] 06:07:00 Test Item Value Reference Range Comments SODIUM (BEAKER) (test 132 meq/L 136-145 kzgx=634) POTASSIUM (BEAKER) (test 5.1 meq/L 3.5-5.1 hddu=638) CHLORIDE (BEAKER) (test 107 meq/L 98-107 nqis=645) CO2 (BEAKER) (test 20 meq/L 22-29 tqpa=690) BLOOD UREA NITROGEN 34 mg/dL 7-21 (BEAKER) (test zzge=680) CREATININE (BEAKER) (test 1.00 mg/dL 0.57-1.25 mzyf=334) GLUCOSE RANDOM (BEAKER) 137 mg/dL 70-105 (test zjby=887) CALCIUM (BEAKER) (test 8.5 mg/dL 8.4-10.2 zsgu=283) EGFR (BEAKER) (test 57 mL/min/1.73 sq m ESTIMATED GFR IS NOT zdwc=3254) ACCURATE CREATININE CLEARANCE IN PREDICTING GLOMERULAR FILTRATION RATE. ESTIMATED GFR IS NOT APPLICABLE FOR DIALYSIS PATIENTS. CBC W/PLT COUNT & AUTO [id number] 05:45:00 Test Item Value Reference Range Comments WHITE BLOOD CELL COUNT (BEAKER) (test dryv=055) 9.8 K/ L 3.5-10.5 RED BLOOD CELL COUNT (BEAKER) (test zprt=560) 2.92 M/ L 3.93-5.22 HEMOGLOBIN (BEAKER) (test nexc=088) 9.8 GM/DL 11.2-15.7 HEMATOCRIT (BEAKER) (test hlok=667) 30.4 % 34.1-44.9 MEAN CORPUSCULAR VOLUME (BEAKER) (test hvna=082) 104.1 fL 79.4-94.8 MEAN CORPUSCULAR HEMOGLOBIN (BEAKER) (test 33.6 pg 25.6-32.2 odfr=710) MEAN CORPUSCULAR HEMOGLOBIN CONC (BEAKER) (test 32.2 GM/DL 32.2-35.5 umzp=310) RED CELL DISTRIBUTION WIDTH (BEAKER) (test 15.8 % 11.7-14.4 hbua=111) PLATELET COUNT (BEAKER) (test neta=306) 216 K/CU MM 150-450 MEAN PLATELET VOLUME (BEAKER) (test fayo=456) 10.2 fL 9.4-12.3 NUCLEATED RED BLOOD CELLS (BEAKER) (test 0 /100 WBC 0-0 pxwz=562) NEUTROPHILS RELATIVE PERCENT (BEAKER) (test 92 % rqzh=966) LYMPHOCYTES RELATIVE PERCENT (BEAKER) (test 4 % ksev=680) MONOCYTES RELATIVE PERCENT (BEAKER) (test 2 % acse=567) EOSINOPHILS RELATIVE PERCENT (BEAKER) (test 0 % yycv=698) BASOPHILS RELATIVE PERCENT (BEAKER) (test 0 % wivk=988) NEUTROPHILS ABSOLUTE COUNT (BEAKER) (test 8.98 K/ L 1.56-6.13 adon=817) LYMPHOCYTES ABSOLUTE COUNT (BEAKER) (test 0.42 K/ L 1.18-3.74 ecxp=947) MONOCYTES ABSOLUTE COUNT (BEAKER) (test 0.21 K/ L 0.24-0.36 digp=244) EOSINOPHILS ABSOLUTE COUNT (BEAKER) (test 0.03 K/ L 0.04-0.36 xbul=288) BASOPHILS ABSOLUTE COUNT (BEAKER) (test 0.01 K/ L 0.01-0.08 pdcq=418) IMMATURE GRANULOCYTES-RELATIVE PERCENT (BEAKER) 1 % 0-1 (test gqht=5245) POCT-GLUCOSE [id number] 22:26:00 Test Item Value Reference Range Comments POC-GLUCOSE METER (BEAKER) 118 mg/dL 70-110 TESTED AT [address] (test lxxs=4220) [place] [address] POCT-GLUCOSE [id number] 18:33:00 Test Item Value Reference Range Comments POC-GLUCOSE METER (BEAKER) 108 mg/dL 70-110 TESTED AT [address] (test lmfv=2744) [place] [address] POCT-GLUCOSE [id number] 13:18:00 Test Item Value Reference Range Comments POC-GLUCOSE METER (BEAKER) 127 mg/dL 70-110 TESTED AT [address] (test qudw=3580) [place] [address] CREATINE KINASE (CK), TOTAL AND [id number] 12:35:00 Test Item Value Reference Range Comments CREATINE KINASE TOTAL (BEAKER) (test nbeb=327) 30 U/L 29-200 CREATINE KINASE-MB (BEAKER) (test soii=362) 1.3 ng/mL 0.0-6.6 CREATINE KINASE-MB INDEX (BEAKER) (test vzvd=030) 4.3 % CK-MB Reference Range:<6.7 Normal6.7-10.0 Borderline>10.0 AbnormalTROPONIN [id number] 12:35:00 Test Item Value Reference Range Comments TROPONIN I (BEAKER) (test timl=452) < ng/mL 0.00-0.03 Troponin I (TnI) levels must be interpreted in the context of the presenting symptoms and the clinical findings. Elevated TnI levels indicate myocardial damage, but are not specific for ischemic heart disease. Elevated TnI levels are seen in patients with other cardiac conditions (including myocarditis and congestive heart failure), and slight TnI elevations occur in patients with other conditions, including sepsis, renal failure, acidosis, acute neurological disease, and persistent tachyarrhythmia.POCT-GLUCOSE [id number] 06:47:00 Test Item Value Reference Range Comments POC-GLUCOSE METER (BHARATHI) 113 mg/dL 70-[address] [facility] [address] [place] [address] (test aydd=4690) [facility] [address] CREATINE KINASE (CK), TOTAL AND [id number] 06:25:00 Test Item Value Reference Range Comments CREATINE KINASE TOTAL (BEAKER) (test lnuo=743) 28 U/L 29-200 CREATINE KINASE-MB (BEAKER) (test vmuh=876) 1.1 ng/mL 0.0-6.6 CREATINE KINASE-MB INDEX (BEAKER) (test cxkh=699) 3.9 % CK-MB Reference Range:<6.7 Normal6.7-10.0 Borderline>10.0 AbnormalTROPONIN [id number] 06:25:00 Test Item Value Reference Range Comments TROPONIN I (BEAKER) (test atjo=374) < ng/mL 0.00-0.03 Troponin I (TnI) levels must be interpreted in the context of the presenting symptoms and the clinical findings. Elevated TnI levels indicate myocardial damage, but are not specific for ischemic heart disease. Elevated TnI levels are seen in patients with other cardiac conditions (including myocarditis and congestive heart failure), and slight TnI elevations occur in patients with other conditions, including sepsis, renal failure, acidosis, acute neurological disease, and persistent tachyarrhythmia.CBC W/PLT COUNT & AUTO [id number] 06:24:00 Test Item Value Reference Range Comments WHITE BLOOD CELL COUNT (BEAKER) (test bbxv=397) 10.7 K/ L 3.5-10.5 RED BLOOD CELL COUNT (BEAKER) (test rqcg=156) 2.91 M/ L 3.93-5.22 HEMOGLOBIN (BEAKER) (test elid=629) 9.7 GM/DL 11.2-15.7 HEMATOCRIT (BEAKER) (test dolq=323) 30.1 % 34.1-44.9 MEAN CORPUSCULAR VOLUME (BEAKER) (test vcza=417) 103.4 fL 79.4-94.8 MEAN CORPUSCULAR HEMOGLOBIN (BEAKER) (test 33.3 pg 25.6-32.2 wkrf=482) MEAN CORPUSCULAR HEMOGLOBIN CONC (BEAKER) (test 32.2 GM/DL 32.2-35.5 imgc=996) RED CELL DISTRIBUTION WIDTH (BEAKER) (test 15.9 % 11.7-14.4 estx=279) PLATELET COUNT (BEAKER) (test uwih=684) 236 K/CU MM 150-450 MEAN PLATELET VOLUME (BEAKER) (test thne=125) 9.6 fL 9.4-12.3 NUCLEATED RED BLOOD CELLS (BEAKER) (test 0 /100 WBC 0-0 lxsa=022) NEUTROPHILS RELATIVE PERCENT (BEAKER) (test 89 % fkkt=924) LYMPHOCYTES RELATIVE PERCENT (BEAKER) (test 4 % qait=817) MONOCYTES RELATIVE PERCENT (BEAKER) (test 4 % bdkg=194) EOSINOPHILS RELATIVE PERCENT (BEAKER) (test 0 % cclq=488) BASOPHILS RELATIVE PERCENT (BEAKER) (test 0 % bpez=125) NEUTROPHILS ABSOLUTE COUNT (BEAKER) (test 9.53 K/ L 1.56-6.13 azbc=619) LYMPHOCYTES ABSOLUTE COUNT (BEAKER) (test 0.47 K/ L 1.18-3.74 kdbh=380) MONOCYTES ABSOLUTE COUNT (BEAKER) (test 0.45 K/ L 0.24-0.36 pdtc=461) EOSINOPHILS ABSOLUTE COUNT (BEAKER) (test 0.00 K/ L 0.04-0.36 jncv=414) BASOPHILS ABSOLUTE COUNT (BEAKER) (test 0.01 K/ L 0.01-0.08 tqgx=518) IMMATURE GRANULOCYTES-RELATIVE PERCENT (BEAKER) 2 % 0-1 (test rnah=4505) CALCIUM, [id number] 06:23:00 Test Item Value Reference Range Comments CALCIUM IONIZED (BEAKER) (test pcax=880) 1.16 mmol/L 1.12-1.27 PH, BLOOD (BEAKER) (test oonh=8552) 7.39 [id number] 06:17:00 Test Item Value Reference Range Comments PHOSPHORUS (BEAKER) (test dpbw=861) 3.1 mg/dL 2.3-4.7 [id number] 06:17:00 Test Item Value Reference Range Comments MAGNESIUM (BEAKER) (test yqvl=521) 2.1 mg/dL 1.6-2.6 COMPREHENSIVE METABOLIC [id number] 06:17:00 Test Item Value Reference Range Comments TOTAL PROTEIN (BEAKER) 5.6 gm/dL 6.0-8.3 (test nfqs=918) ALBUMIN (BEAKER) (test 3.0 g/dL 3.5-5.0 ftuc=7533) ALKALINE PHOSPHATASE 80 U/L 40-150 (BEAKER) (test pkdh=981) BILIRUBIN TOTAL (BEAKER) 0.3 mg/dL 0.2-1.2 (test tehw=756) SODIUM (BEAKER) (test 131 meq/L 136-145 qyig=678) POTASSIUM (BEAKER) (test 4.9 meq/L 3.5-5.1 efdp=259) CHLORIDE (BEAKER) (test 104 meq/L 98-107 bsiv=852) CO2 (BEAKER) (test 21 meq/L 22-29 bswc=357) BLOOD UREA NITROGEN 36 mg/dL 7-21 (BEAKER) (test rkvf=416) CREATININE (BEAKER) (test 1.16 mg/dL 0.57-1.25 wfrx=298) GLUCOSE RANDOM (BEAKER) 112 mg/dL 70-105 (test emcu=513) CALCIUM (BEAKER) (test 8.5 mg/dL 8.4-10.2 evzr=124) AST (SGOT) (BEAKER) (test 16 U/L 5-34 dnag=634) ALT (SGPT) (BEAKER) (test 20 U/L 6-55 fegs=408) EGFR (BEAKER) (test 48 mL/min/1.73 sq m ESTIMATED GFR IS NOT zote=5249) ACCURATE CREATININE CLEARANCE IN PREDICTING GLOMERULAR FILTRATION RATE. ESTIMATED GFR IS NOT APPLICABLE FOR DIALYSIS PATIENTS. CREATINE KINASE (CK), TOTAL AND [id number] 03:37:00 Test Item Value Reference Range Comments CREATINE KINASE TOTAL (BEAKER) (test llcp=702) 26 U/L 29-200 CREATINE KINASE-MB (BEAKER) (test fzff=532) 1.3 ng/mL 0.0-6.6 CREATINE KINASE-MB INDEX (BEAKER) (test rogk=103) 5.0 % CK-MB Reference Range:<6.7 Normal6.7-10.0 Borderline>10.0 AbnormalTROPONIN [id number] 03:37:00 Test Item Value Reference Range Comments TROPONIN I (BEAKER) (test etwz=905) < ng/mL 0.00-0.03 Troponin I (TnI) levels must be interpreted in the context of the presenting symptoms and the clinical findings. Elevated TnI levels indicate myocardial damage, but are not specific for ischemic heart disease. Elevated TnI levels are seen in patients with other cardiac conditions (including myocarditis and congestive heart failure), and slight TnI elevations occur in patients with other conditions, including sepsis, renal failure, acidosis, acute neurological disease, and persistent tachyarrhythmia.RAD, CHEST, 1 VIEW, NON [id number] 03:00:00Reason for exam:->chest painShould this be performed at the bedside?- >YesFINAL REPORT RAD, CHEST, 1 VIEW, NON DEPT INDICATION: chest pain COMPARISON: Prior day's exam FINDINGS: Portable frontal view of the chest. IMPRESSION: Support Lines: Stable. Lungs and pleura: Improving left retrocardiac consolidation. No pneumothorax.Heart and mediastinum : Stable contours. Additional findings: None. Signed: JR Christiansen Robert MDReport Verified Date/Time: 01/22/2018 03:00:41 Reading Location: [address] Reading Room POCT-GLUCOSE [id number] 21:42:00 Test Item Value Reference Range Comments POC-GLUCOSE METER (BEAKER) 173 mg/dL 70-110 TESTED AT [place] [id number] [facility] (test oidv=5259) [facility] [address] POCT-GLUCOSE [id number] 17:50:00 Test Item Value Reference Range Comments POC-GLUCOSE METER (BEAKER) 99 mg/dL 70-110 TESTED AT [address] (test jtvw=9981) [facility] [address] POCT-GLUCOSE [id number] 13:03:00 Test Item Value Reference Range Comments POC-GLUCOSE METER (BEAKER) 91 mg/dL 70-110 TESTED AT [address] (test ydpz=9297) [facility] [address] [id number] 09:51:00 Test Item Value Reference Range Comments PHOSPHORUS (BEAKER) (test khzn=955) 2.6 mg/dL 2.3-4.7 [id number] 09:51:00 Test Item Value Reference Range Comments MAGNESIUM (BEAKER) (test mxtc=151) 1.6 mg/dL 1.6-2.6 COMPREHENSIVE METABOLIC [id number] 09:51:00 Test Item Value Reference Range Comments TOTAL PROTEIN (BEAKER) 5.7 gm/dL 6.0-8.3 (test cblu=028) ALBUMIN (BEAKER) (test 3.1 g/dL 3.5-5.0 mhwo=0137) ALKALINE PHOSPHATASE 87 U/L 40-150 (BEAKER) (test fjcw=610) BILIRUBIN TOTAL (BEAKER) 0.3 mg/dL 0.2-1.2 (test zzoq=443) SODIUM (BEAKER) (test 133 meq/L 136-145 xwkp=724) POTASSIUM (BEAKER) (test 4.1 meq/L 3.5-5.1 thyf=303) CHLORIDE (BEAKER) (test 104 meq/L 98-107 kith=446) CO2 (BEAKER) (test 19 meq/L 22-29 zotc=087) BLOOD UREA NITROGEN 35 mg/dL 7-21 (BEAKER) (test eheg=162) CREATININE (BEAKER) (test 1.21 mg/dL 0.57-1.25 ebhq=939) GLUCOSE RANDOM (BEAKER) 216 mg/dL 70-105 (test klkl=748) CALCIUM (BEAKER) (test 8.1 mg/dL 8.4-10.2 brbn=267) AST (SGOT) (BEAKER) (test 17 U/L 5-34 fqol=482) ALT (SGPT) (BEAKER) (test 26 U/L 6-55 pfks=970) EGFR (BEAKER) (test 46 mL/min/1.73 sq m ESTIMATED GFR IS NOT qzeu=8797) ACCURATE CREATININE CLEARANCE IN PREDICTING GLOMERULAR FILTRATION RATE. ESTIMATED GFR IS NOT APPLICABLE FOR DIALYSIS PATIENTS. POCT-GLUCOSE [id number] 07:34:00 Test Item Value Reference Range Comments POC-GLUCOSE METER (BEAKER) 128 mg/dL 70-[address] [facility] [address] [facility] (test slsg=4170) [facility] [address] CALCIUM, [id number] 06:52:00 Test Item Value Reference Range Comments CALCIUM IONIZED (BEAKER) (test qudy=085) 1.02 mmol/L 1.12-1.27 PH, BLOOD (BEAKER) (test pkza=6078) 7.42 CBC W/PLT COUNT & AUTO [id number] 06:50:00 Test Item Value Reference Range Comments WHITE BLOOD CELL COUNT (BEAKER) (test wsek=624) 12.6 K/ L 3.5-10.5 RED BLOOD CELL COUNT (BEAKER) (test cbxc=952) 2.89 M/ L 3.93-5.22 HEMOGLOBIN (BEAKER) (test isuq=331) 9.8 GM/DL 11.2-15.7 HEMATOCRIT (BEAKER) (test cecc=991) 30.6 % 34.1-44.9 MEAN CORPUSCULAR VOLUME (BEAKER) (test tjux=377) 105.9 fL 79.4-94.8 MEAN CORPUSCULAR HEMOGLOBIN (BEAKER) (test 33.9 pg 25.6-32.2 lqtu=471) MEAN CORPUSCULAR HEMOGLOBIN CONC (BEAKER) (test 32.0 GM/DL 32.2-35.5 ytnw=897) RED CELL DISTRIBUTION WIDTH (BEAKER) (test 16.4 % 11.7-14.4 dmru=830) PLATELET COUNT (BEAKER) (test mxiy=956) 257 K/CU MM 150-450 MEAN PLATELET VOLUME (BEAKER) (test vbyj=913) 10.0 fL 9.4-12.3 NUCLEATED RED BLOOD CELLS (BEAKER) (test 0 /100 WBC 0-0 chto=560) NEUTROPHILS RELATIVE PERCENT (BEAKER) (test 86 % rqug=990) LYMPHOCYTES RELATIVE PERCENT (BEAKER) (test 5 % vqrl=774) MONOCYTES RELATIVE PERCENT (BEAKER) (test 5 % jpdy=763) EOSINOPHILS RELATIVE PERCENT (BEAKER) (test 0 % hdey=111) BASOPHILS RELATIVE PERCENT (BEAKER) (test 0 % cgsk=291) NEUTROPHILS ABSOLUTE COUNT (BEAKER) (test 10.82 K/ L 1.56-6.13 bkos=223) LYMPHOCYTES ABSOLUTE COUNT (BEAKER) (test 0.61 K/ L 1.18-3.74 aapc=061) MONOCYTES ABSOLUTE COUNT (BEAKER) (test 0.64 K/ L 0.24-0.36 ilgr=200) EOSINOPHILS ABSOLUTE COUNT (BEAKER) (test 0.00 K/ L 0.04-0.36 rejr=140) BASOPHILS ABSOLUTE COUNT (BEAKER) (test 0.02 K/ L 0.01-0.08 jqed=745) IMMATURE GRANULOCYTES-RELATIVE PERCENT (BEAKER) 4 % 0-1 (test rztk=1450) POCT-GLUCOSE [id number] 21:12:00 Test Item Value Reference Range Comments POC-GLUCOSE METER (BEAKER) 235 mg/dL 70-110 TESTED AT [address] (test wpzf=6472) [facility] [address] POCT-GLUCOSE [id number] 17:46:00 Test Item Value Reference Range Comments POC-GLUCOSE METER (BEAKER) 137 mg/dL 70-110 TESTED AT [address] (test yjaz=6522) [facility] [address] POCT-GLUCOSE [id number] 12:13:00 Test Item Value Reference Range Comments POC-GLUCOSE METER (BEAKER) 146 mg/dL 70-110 TESTED AT [address] (test crxv=9514) [facility] [address] POCT-GLUCOSE [id number] 07:59:00 Test Item Value Reference Range Comments POC-GLUCOSE METER (BEAKER) 109 mg/dL 70-110 TESTED AT [address] (test shvx=2153) [facility] [address] [id number] 06:39:00 Test Item Value Reference Range Comments MAGNESIUM (BEAKER) (test mpix=766) 1.6 mg/dL 1.6-2.6 COMPREHENSIVE METABOLIC [id number] 06:39:00 Test Item Value Reference Range Comments TOTAL PROTEIN (BEAKER) 5.8 gm/dL 6.0-8.3 (test jpjw=654) ALBUMIN (BEAKER) (test 3.1 g/dL 3.5-5.0 dbqd=6342) ALKALINE PHOSPHATASE 77 U/L 40-150 (BEAKER) (test jbyc=866) BILIRUBIN TOTAL (BEAKER) 0.3 mg/dL 0.2-1.2 (test xqxa=756) SODIUM (BEAKER) (test 133 meq/L 136-145 ruvk=040) POTASSIUM (BEAKER) (test 4.5 meq/L 3.5-5.1 ayya=670) CHLORIDE (BEAKER) (test 103 meq/L 98-107 zgjr=289) CO2 (BEAKER) (test 22 meq/L 22-29 oyzp=490) BLOOD UREA NITROGEN 40 mg/dL 7-21 (BEAKER) (test rqmd=046) CREATININE (BEAKER) (test 1.17 mg/dL 0.57-1.25 yoqp=788) GLUCOSE RANDOM (BEAKER) 158 mg/dL 70-105 (test wewa=618) CALCIUM (BEAKER) (test 9.0 mg/dL 8.4-10.2 vrcy=211) AST (SGOT) (BEAKER) (test 14 U/L 5-34 rcva=459) ALT (SGPT) (BEAKER) (test 21 U/L 6-55 vfow=848) EGFR (BEAKER) (test 47 mL/min/1.73 sq m ESTIMATED GFR IS NOT azuh=8227) ACCURATE CREATININE CLEARANCE IN PREDICTING GLOMERULAR FILTRATION RATE. ESTIMATED GFR IS NOT APPLICABLE FOR DIALYSIS PATIENTS. CBC W/PLT COUNT & AUTO [id number] 06:16:00 Test Item Value Reference Range Comments WHITE BLOOD CELL COUNT (BEAKER) (test dsmz=183) 17.8 K/ L 3.5-10.5 RED BLOOD CELL COUNT (BEAKER) (test vzsy=555) 3.16 M/ L 3.93-5.22 HEMOGLOBIN (BEAKER) (test dvxa=194) 10.6 GM/DL 11.2-15.7 HEMATOCRIT (BEAKER) (test fcoo=280) 33.0 % 34.1-44.9 MEAN CORPUSCULAR VOLUME (BEAKER) (test swdu=167) 104.4 fL 79.4-94.8 MEAN CORPUSCULAR HEMOGLOBIN (BEAKER) (test 33.5 pg 25.6-32.2 nkvv=725) MEAN CORPUSCULAR HEMOGLOBIN CONC (BEAKER) (test 32.1 GM/DL 32.2-35.5 undo=533) RED CELL DISTRIBUTION WIDTH (BEAKER) (test 16.5 % 11.7-14.4 lczq=221) PLATELET COUNT (BEAKER) (test miin=010) 309 K/CU MM 150-450 MEAN PLATELET VOLUME (BEAKER) (test lpvx=554) 9.7 fL 9.4-12.3 NUCLEATED RED BLOOD CELLS (BEAKER) (test 0 /100 WBC 0-0 nktm=170) NEUTROPHILS RELATIVE PERCENT (BEAKER) (test 87 % bykd=629) LYMPHOCYTES RELATIVE PERCENT (BEAKER) (test 4 % vcfo=235) MONOCYTES RELATIVE PERCENT (BEAKER) (test 7 % drxf=782) EOSINOPHILS RELATIVE PERCENT (BEAKER) (test 0 % xbvs=611) BASOPHILS RELATIVE PERCENT (BEAKER) (test 0 % xyzl=010) NEUTROPHILS ABSOLUTE COUNT (BEAKER) (test 15.40 K/ L 1.56-6.13 pdwr=032) LYMPHOCYTES ABSOLUTE COUNT (BEAKER) (test 0.78 K/ L 1.18-3.74 yojg=360) MONOCYTES ABSOLUTE COUNT (BEAKER) (test 1.20 K/ L 0.24-0.36 ltnr=945) EOSINOPHILS ABSOLUTE COUNT (BEAKER) (test 0.00 K/ L 0.04-0.36 hnux=301) BASOPHILS ABSOLUTE COUNT (BEAKER) (test 0.02 K/ L 0.01-0.08 bgba=178) IMMATURE GRANULOCYTES-RELATIVE PERCENT (BEAKER) 2 % 0-1 (test rxjd=5842) RAD, CHEST, 1 VIEW, NON [id number] 22:51:00Upright - For permanent copy only Reason for exam:->line placement Should this be performed at the bedside ?->YesFINAL REPORT EXAMINATION: AP PORTABLE CHEST RADIOGRAPH CLINICAL INDICATION: Central line placement IMPRESSION: Compared with 01/09/2018 The tip of the new right subclavian Port-A-Cath projects along the expected course of the superior vena cava. Patient is also status post interval orthopedic stabilization of the upper-mid thoracic spine. Overall, the lung volumes have improved.However, persistent asymmetric focal consolidation is noted at the left lung base with air bronchograms. Although findings may reflect atelectasis or scarring, a pneumonia should also be considered. Underlying neoplastic process cannot be excluded. No evidence of new lung consolidation, pulmonary edema, large pleural effusion or pneumothorax. Signed: Daylin Bryan Verified Date/Time: 01/19/2018 22:51:50 Reading Location : [address] Reading Room POCT-GLUCOSE [id number] 20:59:00 Test Item Value Reference Range Comments POC-GLUCOSE METER (BEAKER) 131 mg/dL 70-110 TESTED AT [address] (test glom=2322) [place] [id number] [place], [facility] IN OR/30 MINUTE [id number] 19:11:00Reason for exam:-> port a cath placementFINAL REPORT Fluoroscopy 2 views intraoperative 01/19/2018 7:10 PM CLINICAL HISTORY: Instrument localization COMPARISON: None available IMPRESSION: Please correlate imaging reportfindings with the procedure note prepared by Dr. Luis, as an intra-procedure imaging consultation was not requested. Reported fluoroscopy time: 17.6 seconds. Signed : Srini Fitzpatrick Verified Date/Time: 01/19/2018 19:11:23 Reading Location[facility] Reading Room POCT-GLUCOSE [id number] 18:45: 00 Test Item Value Reference Range Comments POC-GLUCOSE METER (BEAKER) 145 mg/dL 70-110 TESTED AT [address] (test gcjp=7028) [facility] [address] SCREEN, [id number] 12:54:00 Test Item Value Reference Range Comments TEST URINE (BEAKER) (test uwck=160) Negative POCT-GLUCOSE [id number] 12:23:00 Test Item Value Reference Range Comments POC-GLUCOSE METER (BEAKER) 138 mg/dL 70-110 TESTED AT [address] (test iqne=3093) [place] [address] POCT-GLUCOSE [id number] 07:51:00 Test Item Value Reference Range Comments POC-GLUCOSE METER (BEAKER) 134 mg/dL 70-110 TESTED AT [address] (test uick=4260) [place] [address] BASIC METABOLIC [id number] 07:15:00 Test Item Value Reference Range Comments SODIUM (BEAKER) (test 136 meq/L 136-145 ykeg=417) POTASSIUM (BEAKER) (test 4.6 meq/L 3.5-5.1 wrba=482) CHLORIDE (BEAKER) (test 104 meq/L 98-107 qydj=400) CO2 (BEAKER) (test 25 meq/L 22-29 jcgb=680) BLOOD UREA NITROGEN 41 mg/dL 7-21 (BEAKER) (test nkcg=531) CREATININE (BEAKER) (test 1.23 mg/dL 0.57-1.25 tsli=476) GLUCOSE RANDOM (BEAKER) 127 mg/dL 70-105 (test ykay=745) CALCIUM (BEAKER) (test 9.2 mg/dL 8.4-10.2 trlt=358) EGFR (BEAKER) (test 45 mL/min/1.73 sq m ESTIMATED GFR IS NOT hknq=5821) ACCURATE CREATININE CLEARANCE IN PREDICTING GLOMERULAR FILTRATION RATE. ESTIMATED GFR IS NOT APPLICABLE FOR DIALYSIS PATIENTS. POCT-GLUCOSE [id number] 21:36:00 Test Item Value Reference Range Comments POC-GLUCOSE METER (BEAKER) 221 mg/dL 70-110 TESTED AT [address] (test ytbm=0928) [place] [id number] POCT-GLUCOSE [id number] 17:58:00 Test Item Value Reference Range Comments POC-GLUCOSE METER (BEAKER) 117 mg/dL 70-110 TESTED AT [address] (test sbrc=4134) [place] [address] TISSUE [id number] 16:10:00Surgical Pathology Report Case: [id number] Authorizing Provider: Jason Cesar MD Collected: 01/12/201831 Ordering Location: [facility] Received: 01/12/2018 0936 SERVICES Pathologist: Jeevan Moe MD Specimens: A) - Soft Tissue, Other, thoracic epidural mass B) -Soft Tissue , Other, thoracic epidural mass C) - Soft Tissue, Other, thoracic epidural mass D) - Soft Tissue, Other, CERVICAL BIOPSY A VERTEBRAL COLUMN, THORACIC, EPIDURAL, LAMINECTOMY: FRAGMENTS OF LIGAMENTUM FLAVUM, FIBROADIPOSE TISSUE WITH FAT NECROSIS, FIBROVASCULAR TISSUE, AND BONENO TUMOR PRESENTB VERTEBRAL COLUMN, THORACIC, EPIDURAL, LAMINECTOMY:METASTATIC POORLY DIFFERENTIATED SQUAMOUS CARCINOMA WITH FOCAL INVOLVEMENT OF BONEC VERTEBRAL COLUMN, THORACIC, EPIDURAL, LAMINECTOMY: METASTATIC POORLY DIFFERENTIATED SQUAMOUS CARCINOMA WITH INVOLVEMENT OF BONED. VERTEBRAL COLUMN, CERVICAL, EPIDURAL, LAMINECTOMY:METASTATIC POORLY DIFFERENTIATED SQUAMOUS CARCINOMA Signing Pathologist Direct Phone Line: [phone] signed by Jeevan Moe MD on 01/18/2018 at 4:10 [id number]; [id number]; [id number]; [id number] history: TumorA. Thoracic epidural mass. B. Thoracic epidural tumor; C. Thoracic epidural mass; D. Cervical biopsy A. Received fresh for intraoperative consultation labeled "soft tissue" with the description "thoracic epidural mass" are three stack-pink irregular piece of soft tissue measuring 0.8 x 0.4 x 0.3 cm, 0.4 x 0.5 x 0.7 cm and0.4 x 0.3 x 0.3 cm. The specimen is submitted entirely in cassette FSA1 and FSA2. Touch prep was prepared. MA/plB. Received fresh for intraoperative consultation labeled "soft tissue" with the description "B. Thoracic epidural mass" are multiple stack- pink firm irregular pieces of soft tissue measuring1 x .5 x 0.6 cm in aggregate. The specimen is submitted entirely in cassette FSB1, B2 and B3. MA/ plC. Received fresh labeled "soft tissue, other", description "thoracic epidural mass" is a 3.3 x 2.5 x0.3 cm aggregate of pink-stack to gonzalez-white, rubbery, soft and osseous tissue. The specimen is entirely submitted in cassette C1 for decalcification. DB/ew Specimen D: Received fresh labeled "soft tissue, other", description "cervical biopsy" is a 2.3 x 1.2 x 0.2 cm aggregate of gonzalez-white rubbery softtissue. The specimen is entirely submitted in cassette D1. DB/plA1FS, FROZEN SECTION DIAGNOSIS, THORACIC EPIDURAL MASS:- LIGAMENTUM FLAVUM, FIBROADIPOSE TISSUE WITH FAT NECROSIS AND BLOOD VESSELSReported by Dr. Moe. Elma b1FS, FROZEN SECTION DIAGNOSIS, THORACIC EPIDURAL MASS:- METASTATIC SQUAMOUS CARCINOMA. Reported by Dr. Moe. Performed on L-PWCOD-VUSXXSP [id number] 12:48:00 Test Item Value Reference Range Comments POC-GLUCOSE METER (BEAKER) 119 mg/dL 70-110 TESTED AT [address] (test pwga=2335) [place] [id number] POCT-GLUCOSE [id number] 08:11:00 Test Item Value Reference Range Comments POC-GLUCOSE METER (BEAKER) 150 mg/dL 70-110 TESTED AT [address] (test vzvw=1685) [place] [id number] CBC W/PLT COUNT & AUTO [id number] 06:50:00 Test Item Value Reference Range Comments WHITE BLOOD CELL COUNT (BEAKER) (test pzax=052) 16.1 K/ L 3.5-10.5 RED BLOOD CELL COUNT (BEAKER) (test uozp=159) 3.00 M/ L 3.93-5.22 HEMOGLOBIN (BEAKER) (test bvqm=053) 9.9 GM/DL 11.2-15.7 HEMATOCRIT (BEAKER) (test bgkj=792) 30.5 % 34.1-44.9 MEAN CORPUSCULAR VOLUME (BEAKER) (test xzmh=776) 101.7 fL 79.4-94.8 MEAN CORPUSCULAR HEMOGLOBIN (BEAKER) (test 33.0 pg 25.6-32.2 cvti=473) MEAN CORPUSCULAR HEMOGLOBIN CONC (BEAKER) (test 32.5 GM/DL 32.2-35.5 gord=796) RED CELL DISTRIBUTION WIDTH (BEAKER) (test 16.6 % 11.7-14.4 oeuc=850) PLATELET COUNT (BEAKER) (test fybk=114) 312 K/CU MM 150-450 MEAN PLATELET VOLUME (BEAKER) (test xlzq=466) 9.3 fL 9.4-12.3 NUCLEATED RED BLOOD CELLS (BEAKER) (test 0 /100 WBC 0-0 rtfr=074) NEUTROPHILS RELATIVE PERCENT (BEAKER) (test 85 % jlxi=239) LYMPHOCYTES RELATIVE PERCENT (BEAKER) (test 6 % mxgh=171) MONOCYTES RELATIVE PERCENT (BEAKER) (test 6 % gied=721) EOSINOPHILS RELATIVE PERCENT (BEAKER) (test 0 % ewwh=079) BASOPHILS RELATIVE PERCENT (BEAKER) (test 0 % dbek=326) NEUTROPHILS ABSOLUTE COUNT (BEAKER) (test 13.65 K/ L 1.56-6.13 mpkk=159) LYMPHOCYTES ABSOLUTE COUNT (BEAKER) (test 0.88 K/ L 1.18-3.74 xxjt=581) MONOCYTES ABSOLUTE COUNT (BEAKER) (test 1.01 K/ L 0.24-0.36 ksce=874) EOSINOPHILS ABSOLUTE COUNT (BEAKER) (test 0.00 K/ L 0.04-0.36 nbcn=479) BASOPHILS ABSOLUTE COUNT (BEAKER) (test 0.03 K/ L 0.01-0.08 glfh=004) IMMATURE GRANULOCYTES-RELATIVE PERCENT (BEAKER) 3 % 0-1 (test tihb=6569) [id number] 06:34:00 Test Item Value Reference Range Comments PHOSPHORUS (BEAKER) (test nhhn=794) 3.9 mg/dL 2.3-4.7 [id number] 06:34:00 Test Item Value Reference Range Comments MAGNESIUM (BEAKER) (test lmna=574) 2.0 mg/dL 1.6-2.6 BASIC METABOLIC [id number] 06:34:00 Test Item Value Reference Range Comments SODIUM (BEAKER) (test 134 meq/L 136-145 ehav=089) POTASSIUM (BEAKER) (test 4.1 meq/L 3.5-5.1 ysxl=010) CHLORIDE (BEAKER) (test 103 meq/L 98-107 nbkt=027) CO2 (BEAKER) (test 23 meq/L 22-29 dqpw=677) BLOOD UREA NITROGEN 39 mg/dL 7-21 (BEAKER) (test ecxw=671) CREATININE (BEAKER) (test 1.21 mg/dL 0.57-1.25 xxvp=634) GLUCOSE RANDOM (BEAKER) 123 mg/dL 70-105 (test vgdj=797) CALCIUM (BEAKER) (test 9.3 mg/dL 8.4-10.2 rvsn=837) EGFR (BEAKER) (test 46 mL/min/1.73 sq m ESTIMATED GFR IS NOT vzpr=6945) ACCURATE CREATININE CLEARANCE IN PREDICTING GLOMERULAR FILTRATION RATE. ESTIMATED GFR IS NOT APPLICABLE FOR DIALYSIS PATIENTS. POCT-GLUCOSE [id number] 22:12:00 Test Item Value Reference Range Comments POC-GLUCOSE METER (BEAKER) 129 mg/dL 70-[address] [facility] [address] [facility] (test xyuv=9730) [facility] [address] [id number] 16:24:00 Test Item Value Reference Range Comments MAGNESIUM (BEAKER) (test fngb=758) 2.5 mg/dL 1.6-2.6 [id number] 04:43:00 Test Item Value Reference Range Comments MAGNESIUM (BEAKER) (test ddgw=808) 2.0 mg/dL 1.6-2.6 BASIC METABOLIC [id number] 04:43:00 Test Item Value Reference Range Comments SODIUM (BEAKER) (test 134 meq/L 136-145 trid=532) POTASSIUM (BEAKER) (test 4.1 meq/L 3.5-5.1 aygg=138) CHLORIDE (BEAKER) (test 103 meq/L 98-107 ohvx=403) CO2 (BEAKER) (test 22 meq/L 22-29 nljg=666) BLOOD UREA NITROGEN 35 mg/dL 7-21 (BEAKER) (test rjtg=148) CREATININE (BEAKER) (test 1.23 mg/dL 0.57-1.25 bmmu=500) GLUCOSE RANDOM (BEAKER) 130 mg/dL 70-105 (test urvv=802) CALCIUM (BEAKER) (test 9.2 mg/dL 8.4-10.2 fvzg=236) EGFR (BEAKER) (test 45 mL/min/1.73 sq m ESTIMATED GFR IS NOT gxve=0126) ACCURATE CREATININE CLEARANCE IN PREDICTING GLOMERULAR FILTRATION RATE. ESTIMATED GFR IS NOT APPLICABLE FOR DIALYSIS PATIENTS. CBC W/PLT COUNT & AUTO [id number] 04:23:00 Test Item Value Reference Range Comments WHITE BLOOD CELL COUNT (BEAKER) (test ibcy=258) 14.0 K/ L 3.5-10.5 RED BLOOD CELL COUNT (BEAKER) (test lzuy=783) 3.01 M/ L 3.93-5.22 HEMOGLOBIN (BEAKER) (test roqe=657) 10.1 GM/DL 11.2-15.7 HEMATOCRIT (BEAKER) (test hbzt=094) 30.6 % 34.1-44.9 MEAN CORPUSCULAR VOLUME (BEAKER) (test rmuq=524) 101.7 fL 79.4-94.8 MEAN CORPUSCULAR HEMOGLOBIN (BEAKER) (test 33.6 pg 25.6-32.2 asjn=746) MEAN CORPUSCULAR HEMOGLOBIN CONC (BEAKER) (test 33.0 GM/DL 32.2-35.5 wizg=255) RED CELL DISTRIBUTION WIDTH (BEAKER) (test 16.5 % 11.7-14.4 ajji=312) PLATELET COUNT (BEAKER) (test yzdz=072) 277 K/CU MM 150-450 MEAN PLATELET VOLUME (BEAKER) (test ugkl=170) 9.3 fL 9.4-12.3 NUCLEATED RED BLOOD CELLS (BEAKER) (test 0 /100 WBC 0-0 edwu=627) NEUTROPHILS RELATIVE PERCENT (BEAKER) (test 83 % qmvd=956) LYMPHOCYTES RELATIVE PERCENT (BEAKER) (test 7 % ftup=219) MONOCYTES RELATIVE PERCENT (BEAKER) (test 6 % ewkv=592) EOSINOPHILS RELATIVE PERCENT (BEAKER) (test 0 % zlnp=371) BASOPHILS RELATIVE PERCENT (BEAKER) (test 0 % robe=361) NEUTROPHILS ABSOLUTE COUNT (BEAKER) (test 11.58 K/ L 1.56-6.13 zoyy=307) LYMPHOCYTES ABSOLUTE COUNT (BEAKER) (test 0.93 K/ L 1.18-3.74 yygw=268) MONOCYTES ABSOLUTE COUNT (BEAKER) (test 0.86 K/ L 0.24-0.36 xznp=478) EOSINOPHILS ABSOLUTE COUNT (BEAKER) (test 0.01 K/ L 0.04-0.36 cmkj=262) BASOPHILS ABSOLUTE COUNT (BEAKER) (test 0.03 K/ L 0.01-0.08 kddl=848) IMMATURE GRANULOCYTES-RELATIVE PERCENT (BEAKER) 4 % 0-1 (test sfws=5039) [id number] 05:36:00 Test Item Value Reference Range Comments PHOSPHORUS (BEAKER) (test gklo=047) 3.9 mg/dL 2.3-4.7 [id number] 05:36:00 Test Item Value Reference Range Comments MAGNESIUM (BEAKER) (test gmzb=212) 1.9 mg/dL 1.6-2.6 BASIC METABOLIC [id number] 05:36:00 Test Item Value Reference Range Comments SODIUM (BEAKER) (test 132 meq/L 136-145 fwjs=181) POTASSIUM (BEAKER) (test 3.9 meq/L 3.5-5.1 npil=184) CHLORIDE (BEAKER) (test 103 meq/L 98-107 ubcw=462) CO2 (BEAKER) (test 21 meq/L 22-29 lfbd=318) BLOOD UREA NITROGEN 32 mg/dL 7-21 (BEAKER) (test dyvb=283) CREATININE (BEAKER) (test 1.26 mg/dL 0.57-1.25 ksvj=018) GLUCOSE RANDOM (BEAKER) 129 mg/dL 70-105 (test xazy=867) CALCIUM (BEAKER) (test 9.1 mg/dL 8.4-10.2 upke=760) EGFR (BEAKER) (test 43 mL/min/1.73 sq m ESTIMATED GFR IS NOT xcnq=8125) ACCURATE CREATININE CLEARANCE IN PREDICTING GLOMERULAR FILTRATION RATE. ESTIMATED GFR IS NOT APPLICABLE FOR DIALYSIS PATIENTS. CBC W/PLT COUNT & AUTO [id number] 05:10:00 Test Item Value Reference Range Comments WHITE BLOOD CELL COUNT (BEAKER) (test oagu=631) 14.4 K/ L 3.5-10.5 RED BLOOD CELL COUNT (BEAKER) (test crpe=145) 3.02 M/ L 3.93-5.22 HEMOGLOBIN (BEAKER) (test xopb=416) 10.0 GM/DL 11.2-15.7 HEMATOCRIT (BEAKER) (test fbcj=563) 30.3 % 34.1-44.9 MEAN CORPUSCULAR VOLUME (BEAKER) (test gwhd=261) 100.3 fL 79.4-94.8 MEAN CORPUSCULAR HEMOGLOBIN (BEAKER) (test 33.1 pg 25.6-32.2 hqbx=173) MEAN CORPUSCULAR HEMOGLOBIN CONC (BEAKER) (test 33.0 GM/DL 32.2-35.5 jeux=848) RED CELL DISTRIBUTION WIDTH (BEAKER) (test 16.5 % 11.7-14.4 bbvg=295) PLATELET COUNT (BEAKER) (test kzvw=097) 281 K/CU MM 150-450 MEAN PLATELET VOLUME (BEAKER) (test jdhy=668) 9.0 fL 9.4-12.3 NUCLEATED RED BLOOD CELLS (BEAKER) (test 0 /100 WBC 0-0 zuqj=987) NEUTROPHILS RELATIVE PERCENT (BEAKER) (test 84 % rljy=862) LYMPHOCYTES RELATIVE PERCENT (BEAKER) (test 7 % kdzb=138) MONOCYTES RELATIVE PERCENT (BEAKER) (test 6 % zufk=275) EOSINOPHILS RELATIVE PERCENT (BEAKER) (test 0 % pcnk=954) BASOPHILS RELATIVE PERCENT (BEAKER) (test 0 % omgl=179) NEUTROPHILS ABSOLUTE COUNT (BEAKER) (test 12.08 K/ L 1.56-6.13 cigj=561) LYMPHOCYTES ABSOLUTE COUNT (BEAKER) (test 1.00 K/ L 1.18-3.74 vuaw=945) MONOCYTES ABSOLUTE COUNT (BEAKER) (test 0.89 K/ L 0.24-0.36 dfdk=088) EOSINOPHILS ABSOLUTE COUNT (BEAKER) (test 0.00 K/ L 0.04-0.36 pork=197) BASOPHILS ABSOLUTE COUNT (BEAKER) (test 0.03 K/ L 0.01-0.08 elgk=306) IMMATURE GRANULOCYTES-RELATIVE PERCENT (BEAKER) 2 % 0-1 (test sydh=5980) [id number] 04:15:00 Test Item Value Reference Range Comments PHOSPHORUS (BEAKER) (test qhom=082) 3.2 mg/dL 2.3-4.7 [id number] 04:15:00 Test Item Value Reference Range Comments MAGNESIUM (BEAKER) (test cvwt=661) 1.9 mg/dL 1.6-2.6 BASIC METABOLIC [id number] 04:15:00 Test Item Value Reference Range Comments SODIUM (BEAKER) (test 132 meq/L 136-145 rqht=304) POTASSIUM (BEAKER) (test 4.0 meq/L 3.5-5.1 hcxx=660) CHLORIDE (BEAKER) (test 104 meq/L 98-107 lcmm=337) CO2 (BEAKER) (test 19 meq/L 22-29 oktx=776) BLOOD UREA NITROGEN 31 mg/dL 7-21 (BEAKER) (test zofp=210) CREATININE (BEAKER) (test 1.39 mg/dL 0.57-1.25 qkdg=534) GLUCOSE RANDOM (BEAKER) 119 mg/dL 70-105 (test kkal=367) CALCIUM (BEAKER) (test 8.7 mg/dL 8.4-10.2 naco=241) EGFR (BEAKER) (test 39 mL/min/1.73 sq m ESTIMATED GFR IS NOT gbtb=2963) ACCURATE CREATININE CLEARANCE IN PREDICTING GLOMERULAR FILTRATION RATE. ESTIMATED GFR IS NOT APPLICABLE FOR DIALYSIS PATIENTS. CBC W/PLT COUNT & AUTO [id number] 04:00:00 Test Item Value Reference Range Comments WHITE BLOOD CELL COUNT (BEAKER) (test vnun=772) 17.0 K/ L 3.5-10.5 RED BLOOD CELL COUNT (BEAKER) (test ceyp=852) 2.81 M/ L 3.93-5.22 HEMOGLOBIN (BEAKER) (test diuv=477) 9.4 GM/DL 11.2-15.7 HEMATOCRIT (BEAKER) (test tisz=401) 28.6 % 34.1-44.9 MEAN CORPUSCULAR VOLUME (BEAKER) (test xeeh=183) 101.8 fL 79.4-94.8 MEAN CORPUSCULAR HEMOGLOBIN (BEAKER) (test 33.5 pg 25.6-32.2 ksyv=422) MEAN CORPUSCULAR HEMOGLOBIN CONC (BEAKER) (test 32.9 GM/DL 32.2-35.5 kkzr=182) RED CELL DISTRIBUTION WIDTH (BEAKER) (test 17.1 % 11.7-14.4 qznh=640) PLATELET COUNT (BEAKER) (test very=292) 269 K/CU MM 150-450 MEAN PLATELET VOLUME (BEAKER) (test bslu=421) 8.7 fL 9.4-12.3 NUCLEATED RED BLOOD CELLS (BEAKER) (test 0 /100 WBC 0-0 cnuq=549) NEUTROPHILS RELATIVE PERCENT (BEAKER) (test 83 % plvx=401) LYMPHOCYTES RELATIVE PERCENT (BEAKER) (test 6 % dwwy=992) MONOCYTES RELATIVE PERCENT (BEAKER) (test 9 % zhiu=692) EOSINOPHILS RELATIVE PERCENT (BEAKER) (test 0 % rahs=961) BASOPHILS RELATIVE PERCENT (BEAKER) (test 0 % gett=290) NEUTROPHILS ABSOLUTE COUNT (BEAKER) (test 14.08 K/ L 1.56-6.13 epdl=214) LYMPHOCYTES ABSOLUTE COUNT (BEAKER) (test 1.07 K/ L 1.18-3.74 dqee=989) MONOCYTES ABSOLUTE COUNT (BEAKER) (test 1.47 K/ L 0.24-0.36 vinj=816) EOSINOPHILS ABSOLUTE COUNT (BEAKER) (test 0.00 K/ L 0.04-0.36 ochf=076) BASOPHILS ABSOLUTE COUNT (BEAKER) (test 0.02 K/ L 0.01-0.08 xrzu=554) IMMATURE GRANULOCYTES-RELATIVE PERCENT (BEAKER) 2 % 0-1 (test qgaz=9898) CALCIUM, [id number] 03:36:00 Test Item Value Reference Range Comments CALCIUM IONIZED (BEAKER) (test cibg=745) 1.18 mmol/L 1.12-1.27 PH, BLOOD (BEAKER) (test uaxt=6331) 7.50 [id number] 03:26:00 Test Item Value Reference Range Comments PHOSPHORUS (BEAKER) (test ayde=669) 3.1 mg/dL 2.3-4.7 [id number] 03:26:00 Test Item Value Reference Range Comments MAGNESIUM (BEAKER) (test ugmm=228) 1.7 mg/dL 1.6-2.6 COMPREHENSIVE METABOLIC [id number] 03:26:00 Test Item Value Reference Range Comments TOTAL PROTEIN (BEAKER) 5.8 gm/dL 6.0-8.3 (test bsid=268) ALBUMIN (BEAKER) (test 3.0 g/dL 3.5-5.0 svkt=1203) ALKALINE PHOSPHATASE 81 U/L 40-150 (BEAKER) (test mnwf=076) BILIRUBIN TOTAL (BEAKER) 0.2 mg/dL 0.2-1.2 (test zdgh=511) SODIUM (BEAKER) (test 134 meq/L 136-145 xbbn=018) POTASSIUM (BEAKER) (test 3.8 meq/L 3.5-5.1 itdt=692) CHLORIDE (BEAKER) (test 106 meq/L 98-107 dbva=790) CO2 (BEAKER) (test 21 meq/L 22-29 obey=667) BLOOD UREA NITROGEN 30 mg/dL 7-21 (BEAKER) (test tbgd=141) CREATININE (BEAKER) (test 1.65 mg/dL 0.57-1.25 vtmv=141) GLUCOSE RANDOM (BEAKER) 149 mg/dL 70-105 (test rean=095) CALCIUM (BEAKER) (test 8.8 mg/dL 8.4-10.2 saza=921) AST (SGOT) (BEAKER) (test 18 U/L 5-34 eaey=571) ALT (SGPT) (BEAKER) (test 9 U/L 6-55 iueb=594) EGFR (BEAKER) (test 32 mL/min/1.73 sq m ESTIMATED GFR IS NOT owvv=2099) ACCURATE CREATININE CLEARANCE IN PREDICTING GLOMERULAR FILTRATION RATE. ESTIMATED GFR IS NOT APPLICABLE FOR DIALYSIS PATIENTS. CALCIUM, [id number] 03:08:00 Test Item Value Reference Range Comments CALCIUM IONIZED (BEAKER) (test nrsa=901) 1.17 mmol/L 1.12-1.27 PH, BLOOD (BEAKER) (test uixc=4930) 7.47 CBC W/PLT COUNT & AUTO [id number] 03:06:00 Test Item Value Reference Range Comments WHITE BLOOD CELL COUNT (BEAKER) (test pbus=725) 14.8 K/ L 3.5-10.5 RED BLOOD CELL COUNT (BEAKER) (test bslo=441) 2.78 M/ L 3.93-5.22 HEMOGLOBIN (BEAKER) (test plui=121) 9.2 GM/DL 11.2-15.7 HEMATOCRIT (BEAKER) (test acvv=174) 28.0 % 34.1-44.9 MEAN CORPUSCULAR VOLUME (BEAKER) (test gvku=390) 100.7 fL 79.4-94.8 MEAN CORPUSCULAR HEMOGLOBIN (BEAKER) (test 33.1 pg 25.6-32.2 iikt=605) MEAN CORPUSCULAR HEMOGLOBIN CONC (BEAKER) (test 32.9 GM/DL 32.2-35.5 folv=253) RED CELL DISTRIBUTION WIDTH (BEAKER) (test 17.3 % 11.7-14.4 jiip=717) PLATELET COUNT (BEAKER) (test cmcc=920) 243 K/CU MM 150-450 MEAN PLATELET VOLUME (BEAKER) (test apiq=061) 8.8 fL 9.4-12.3 NUCLEATED RED BLOOD CELLS (BEAKER) (test 0 /100 WBC 0-0 mmkv=950) NEUTROPHILS RELATIVE PERCENT (BEAKER) (test 88 % wdmc=154) LYMPHOCYTES RELATIVE PERCENT (BEAKER) (test 6 % senq=869) MONOCYTES RELATIVE PERCENT (BEAKER) (test 5 % cjtz=967) EOSINOPHILS RELATIVE PERCENT (BEAKER) (test 0 % acub=451) BASOPHILS RELATIVE PERCENT (BEAKER) (test 0 % lgco=696) NEUTROPHILS ABSOLUTE COUNT (BEAKER) (test 13.04 K/ L 1.56-6.13 kuus=037) LYMPHOCYTES ABSOLUTE COUNT (BEAKER) (test 0.82 K/ L 1.18-3.74 ycfo=468) MONOCYTES ABSOLUTE COUNT (BEAKER) (test 0.78 K/ L 0.24-0.36 hnqj=147) EOSINOPHILS ABSOLUTE COUNT (BEAKER) (test 0.00 K/ L 0.04-0.36 qxaj=777) BASOPHILS ABSOLUTE COUNT (BEAKER) (test 0.01 K/ L 0.01-0.08 iytz=782) IMMATURE GRANULOCYTES-RELATIVE PERCENT (BEAKER) 1 % 0-1 (test zvca=4033) BASIC METABOLIC [id number] 07:08:00 Test Item Value Reference Range Comments SODIUM (BEAKER) (test 134 meq/L 136-145 dugz=582) POTASSIUM (BEAKER) (test 3.6 meq/L 3.5-5.1 uqpw=882) CHLORIDE (BEAKER) (test 104 meq/L 98-107 ibce=155) CO2 (BEAKER) (test 19 meq/L 22-29 oqrl=037) BLOOD UREA NITROGEN 26 mg/dL 7-21 (BEAKER) (test jqal=573) CREATININE (BEAKER) (test 1.98 mg/dL 0.57-1.25 nzwh=135) GLUCOSE RANDOM (BEAKER) 142 mg/dL 70-105 (test xalr=651) CALCIUM (BEAKER) (test 9.1 mg/dL 8.4-10.2 oeyq=101) EGFR (BEAKER) (test 26 mL/min/1.73 sq m ESTIMATED GFR IS NOT aocd=2235) ACCURATE CREATININE CLEARANCE IN PREDICTING GLOMERULAR FILTRATION RATE. ESTIMATED GFR IS NOT APPLICABLE FOR DIALYSIS PATIENTS. CBC (HEMOGRAM ONLY)2018-01-13 06:56:00 Test Item Value Reference Range Comments WHITE BLOOD CELL COUNT (BEAKER) (test aize=389) 15.3 K/ L 3.5-10.5 RED BLOOD CELL COUNT (BEAKER) (test cdir=444) 2.96 M/ L 3.93-5.22 HEMOGLOBIN (BEAKER) (test yjkx=361) 9.8 GM/DL 11.2-15.7 HEMATOCRIT (BEAKER) (test pgop=640) 29.3 % 34.1-44.9 MEAN CORPUSCULAR VOLUME (BEAKER) (test sscg=414) 99.0 fL 79.4-94.8 MEAN CORPUSCULAR HEMOGLOBIN (BEAKER) (test 33.1 pg 25.6-32.2 tvff=576) MEAN CORPUSCULAR HEMOGLOBIN CONC (BEAKER) (test 33.4 GM/DL 32.2-35.5 pxlz=961) RED CELL DISTRIBUTION WIDTH (BEAKER) (test 17.6 % 11.7-14.4 rrjg=459) PLATELET COUNT (BEAKER) (test xdyj=554) 345 K/CU MM 150-450 MEAN PLATELET VOLUME (BEAKER) (test wscs=452) 9.0 fL 9.4-12.3 NUCLEATED RED BLOOD CELLS (BEAKER) (test 0 /100 WBC 0-0 pler=324) [id number] 06:54:00 Test Item Value Reference Range Comments PHOSPHORUS (BEAKER) (test cgjz=833) 3.2 mg/dL 2.3-4.7 [id number] 06:54:00 Test Item Value Reference Range Comments MAGNESIUM (BEAKER) (test xwzc=299) 2.2 mg/dL 1.6-2.6 TISSUE [id number] 18:59:00Surgical Pathology Report Case: [id number] Authorizing Provider: Lucia Lorenzo MD Collected: 01/11/201814 Ordering Location: [address] Received: 01/11/2018 0914 Service Pathologist: Clary Bush MD Specimen: Chest, CHEST WALL Addendum is issued to report additional results. The original diagnosis remains the same.Results:An immunostain for P16 is predominantly negative in tumor cells. Clinical correlation is recommended. If clinically indicated, in situ hybridiazation for HPV may be performed at request. Addendum electronically signed by Clary Bush MD on 01/12/2018 at 6:59 PMSOFT TISSUE, CHEST WALL, BIOPSY: - SQUAMOUS CELL CARCINOMA INFIBROUS TISSUE, KERATINIZING Signing Pathologist Direct Phone Line: [phone] by Clary Bush MD on 01/12/2018 at 9:29 Allie immunostain for p16 is pending and an addendum will follow.[id number], [id number] out metastatic cervical carcinoma A. Left chest wall biopsyThe specimen is received in a formalin-filled container and labeled with the patient 's information and labeled "left chest wall biopsy" and consists of two white core biopsies ranging in length from 0.6 to 1 cm. Submitted entirely A1. CG/pl Performed.[place], FINANCIAL REPORTING ADVISOR IN OR/30 MINUTE [id number] 14:42:00Reason for exam:->PAINFINAL REPORT Two fluoroscopic spine images. Discussion: Fluoroscopy time six seconds. Refer to procedure notes for diagnostic and therapeutic detail. Fluoroscopy was not performed by the undersigned. Signed: Page Santos Verified Date/Time: 01/12/2018 14:42 :34 Reading Location: [facility] C0[facility] Transitional Reading Room URINE [id number] 12:26:00 Test Item Value Reference Range Comments CULTURE (BEAKER) (test ESCHERICHIA COLI >100,000 col/mL bowb=1384) Escherichia coli Amikacin (test code=1) Ampicillin + Sulbactam (test code=6) Aztreonam (test code=32) Cefepime (test code=51) Cefoxitin (test code=68) Ceftazidime (test code=27) Ceftriaxone (test code=52) Ertapenem (test code=38) Gentamicin (test code=18) Levofloxacin (test code=22) Meropenem (test code=34) Nitrofurantoin (test code=23) Piperacillin + Tazobactam (test code=29) Tetracycline (test code=2) Tobramycin (test code=25) Trimethoprim + Sulfamethoxazole (test code=47) POTASSIUM-STAT [id number] 11:43:00 Test Item Value Reference Range Comments POTASSIUM (BEAKER) (test jeyb=648) 3.6 meq/L 3.6-5.5 BLOOD GAS, [id number] 11:43:00 Test Item Value Reference Range Comments PH ARTERIAL (BEAKER) (test zrih=389) 7.35 7.35-7.45 PCO2 ARTERIAL (BEAKER) (test gbgl=715) 36 mmHg 35-45 PO2 ARTERIAL (BEAKER) (test wzuh=523) 188 mmHg 80-90 O2 SATURATION ARTERIAL (BEAKER) (test imtt=684) 99.2 % 96.0-97.0 HCO3 ARTERIAL (BEAKER) (test gaqx=454) 20 mmol/L 21-29 BASE EXCESS ARTERIAL (BEAKER) (test cvmc=739) -5.3 mmol/L -2.0-3.0 PATIENT TEMPERATURE (BEAKER) (test hptd=1426) 37.0 C FIO2 (BEAKER) (test vzhn=3453) 21.0 % CALCIUM, [id number] 11:43:00 Test Item Value Reference Range Comments CALCIUM IONIZED (BEAKER) (test dxky=933) 1.11 mmol/L 1.12-1.27 PH, BLOOD (BEAKER) (test bsli=4072) 7.35 GLUCOSE-STAT [id number] 11:43:00 Test Item Value Reference Range Comments GLUCOSE RANDOM (BEAKER) (test mjqr=062) 154 mg/dL 70-110 SODIUM NA-STAT [id number] 11:43:00 Test Item Value Reference Range Comments SODIUM (BEAKER) (test fpoc=250) 133 meq/L 135-148 HGB/HCT (H&H) - STAT [id number] 11:43:00 Test Item Value Reference Range Comments HEMOGLOBIN (BEAKER) (test xbnz=078) 10.7 g/dL 12.0-15.0 HEMATOCRIT (BEAKER) (test jtii=850) 31.0 % 36.0-45.0 FL, FINANCIAL REPORTING ADVISOR IN OR/30 MINUTE [id number] 10:00:00Reason for exam:-> painFINAL REPORT Single fluoroscopic spine image. Fluoroscopy time six seconds. Fluoroscopy was not performed by the undersigned. A marker projects at the T6 transverse process level. Report was called to the operating room staff who was in agreement. Signed: Page Santos Verified Date/Time: 01/12/2018 10:00:50 Reading Location: [facility] Radiology Reading Room Electronically signed by: PAGE SANTOS M.D. on 10:00 AMPROTEIN, RANDOM [id number] 08:25:00 Test Item Value Reference Range Comments PROTEIN, URINE (BEAKER) (test qnqj=3058) 45 mg/dL 0-14 CREATININE, RANDOM [id number] 08:23:00 Test Item Value Reference Range Comments CREATININE URINE (BEAKER) (test czhi=784) 68.7 mg/dL Reference Range: No NormalsSODIUM, RANDOM [id number] 08:23:00 Test Item Value Reference Range Comments SODIUM URINE (BEAKER) (test dyjf=118) 61 meq/L Reference Range: No NormalsCALCIUM, [id number] 07:30:00 Test Item Value Reference Range Comments CALCIUM IONIZED (BEAKER) (test teil=172) 1.19 mmol/L 1.12-1.27 PH, BLOOD (BEAKER) (test mxuw=1966) 7.46 OSMOLALITY, [id number] 07:16:00 Test Item Value Reference Range Comments OSMOLALITY URINE (BEAKER) (test opgu=217) 372 mOsm/kg 40-1400 BASIC METABOLIC [id number] 07:09:00 Test Item Value Reference Range Comments SODIUM (BEAKER) (test 134 meq/L 136-145 qehz=116) POTASSIUM (BEAKER) (test 3.7 meq/L 3.5-5.1 cpsa=690) CHLORIDE (BEAKER) (test 103 meq/L 98-107 eyvg=641) CO2 (BEAKER) (test 22 meq/L 22-29 ftvu=141) BLOOD UREA NITROGEN 30 mg/dL 7-21 (BEAKER) (test tvpu=325) CREATININE (BEAKER) (test 2.21 mg/dL 0.57-1.25 nseq=900) GLUCOSE RANDOM (BEAKER) 95 mg/dL 70-105 (test lslw=219) CALCIUM (BEAKER) (test 9.8 mg/dL 8.4-10.2 nuxt=991) EGFR (BEAKER) (test 23 mL/min/1.73 sq m ESTIMATED GFR IS NOT zyjr=7939) ACCURATE CREATININE CLEARANCE IN PREDICTING GLOMERULAR FILTRATION RATE. ESTIMATED GFR IS NOT APPLICABLE FOR DIALYSIS PATIENTS. SCREEN, [id number] 07:04:00 Test Item Value Reference Range Comments TEST URINE (BEAKER) (test kukt=637) Negative TSH/FREE T4 IF [id number] 06:27:00 Test Item Value Reference Range Comments THYROID STIMULATING HORMONE (BEAKER) (test 2.90 uIU/mL 0.35-4.94 qbkg=624) [id number] 06:18:00 Test Item Value Reference Range Comments PHOSPHORUS (BEAKER) (test pqlg=425) 3.9 mg/dL 2.3-4.7 [id number] 06:14:00 Test Item Value Reference Range Comments MAGNESIUM (BEAKER) (test vbye=044) 1.5 mg/dL 1.6-2.6 CT, BRAIN, WITHOUT [id number] 01:36:00Stroke protocolFINAL REPORT CT, BRAIN, WITHOUT CONTRAST CLINICAL INDICATION: concern for stroke COMPARISON: None TECHNIQUE: Noncontrast axial CT imaging of the brain and skull. DOSE REDUCTION: Dose modulation, iterative reconstruction , and/or weight-based adjustment of the mA/kV was utilized to reduce the radiation dose to as low as reasonably achievable. FINDINGS:Cerebral parenchyma : Unremarkable.Midline structures: Normally positioned.Cerebellum and brainstem : Normal.Ventricles: Normal volume.Extra-axial spaces: Unremarkable. Calvarium and skull base: Intact.Paranasal sinuses and mastoid air cells: Visible chambers are clear.Orbital contents: Included portions unremarkable. Additionalfindings: None. IMPRESSION: No acute intracranial abnormality. If there is persistent clinical concern for intracranial pathology, MR examination is recommended for further characterization. Signed: JR Kuldip, Sha Licona Verified Date/Time: 01/12/2018 01:36:06 Reading Location: [address] Body Reading Room MR, SPINE, CERVICAL, WITHOUT [id number] 00:40: 00Acute spine protocolFINAL REPORT MR, SPINE, LUMBAR, WITHOUT CONTRAST, MR, SPINE, THORACIC, WITHOUT CONTRAST, MR, SPINE, CERVICAL, WITHOUT CONTRAST INDICATION: Low back pain, cauda equina syndrome suspected TECHNIQUE: Multiplanar, multisequence unenhanced MR images of the entire spine were obtained. COMPARISON: None FINDINGS:Cervical Spine:A central posterior disc osteophyte complex is present atC3-4. This indents the ventral thecal sac without cord deformity. A smaller, broad-based central disc protrusion is also noted at C5-6. There is no canal or foraminal compromise. The craniocervical junction is preserved. Cervical vertebral bodies demonstrate normal height and signal characteristics. Mild disc desiccation noted at multiple levels. Paraspinal soft tissues are unremarkable. Thoracic spine:Loss of vertebral body height approximately 50% noted at the T6 level. There is expansile extension of osseous/cortical structures narrowing the canal at this level and extending along the posterior elements to involve the spinous processes bilaterally. Areas of T2 prolongation are also present in the T5, T7 and T8 vertebral bodies. No height loss or canal compromise is present at this level. Edemanoted in the thoracic cord at the T6 level without significant expansion superiorly or inferiorly. Remaining portions of the thoracic cord are unremarkable. Paraspinal soft tissues demonstrate bilateral pleural effusions, greater on the left. Aortic caliber is within normal limits. Lumbar spine:The vertebral bodies have normal height, alignment, and signal intensity. The intervertebral discs demonstrate multilevel desiccation, particularly at the lower levels. Small posterior disc protrusions are present without canal compromise. The conus medullaris terminates at the L1 level. The descending nerveroots of the cauda equina are normal. There is no significant foraminal or spinal canal stenosis. Paraspinal soft tissue structures demonstrate fluid distention of the urinary bladder, incompletely. Aortic caliber is within normal limits. There is mild-to- moderate bilateral hydronephrosis. Partially calcified stones are noted incidentally in the gallbladder. IMPRESSION: Compression fracture of theT6 vertebral body approximately 50% with posterior retropulsion and posterior element involvement most compatible with pathologic fracture. Lack of intravenous contrast limits further evaluation. Resultant canal narrowing and focal cord injury at the T6 level. Findings discussed with neurology roundhouse firer/fireman at the time of dictation. Signed: JR Christiansen Robert MDReport Verified Date/Time: 01/12/2018 00:40:56 Reading Location: [facility] C013Y CT Body Reading Room MR, SPINE, LUMBAR, WITHOUT [id number] 00:40:00Acute spine protocolFINAL REPORT MR, SPINE, LUMBAR, WITHOUT CONTRAST , MR, SPINE, THORACIC, WITHOUT CONTRAST, MR, SPINE, CERVICAL, WITHOUT CONTRAST INDICATION: Low back pain, cauda equina syndrome suspected TECHNIQUE: Multiplanar, multisequence unenhanced MR images of the entire spine were obtained. COMPARISON: None FINDINGS:Cervical Spine:A central posterior disc osteophyte complex is present atC3-4. This indents the ventral thecal sac without cord deformity. A smaller, broad-based central disc protrusion is also noted at C5-6. There is no canal or foraminal compromise. The craniocervical junction is preserved. Cervical vertebral bodies demonstrate normal height and signal characteristics. Mild disc desiccation noted at multiple levels. Paraspinal soft tissues are unremarkable. Thoracic spine:Loss of vertebral body height approximately 50% noted at the T6 level. There is expansile extension of osseous/cortical structures narrowing the canal at this level and extending along the posterior elements to involve the spinous processes bilaterally. Areas of T2 prolongation are also present in the T5, T7 and T8 vertebral bodies. No height loss or canal compromise is present at this level. Edemanoted in the thoracic cord at the T6 level without significant expansion superiorly or inferiorly. Remaining portions of the thoracic cord are unremarkable. Paraspinal soft tissues demonstrate bilateral pleural effusions, greater on the left. Aortic caliber is within normal limits. Lumbar spine:The vertebral bodies have normal height, alignment, and signal intensity. The intervertebral discs demonstrate multilevel desiccation, particularly at the lower levels. Small posterior disc protrusions are present without canal compromise. The conus medullaris terminates at the L1 level. The descending nerveroots of the cauda equina are normal. There is no significant foraminal or spinal canal stenosis. Paraspinal soft tissue structures demonstrate fluid distention of the urinary bladder, incompletely. Aortic caliber is within normal limits. There is mild-to- moderate bilateral hydronephrosis. Partially calcified stones are noted incidentally in the gallbladder. IMPRESSION: Compression fracture of theT6 vertebral body approximately 50% with posterior retropulsion and posterior element involvement most compatible with pathologic fracture. Lack of intravenous contrast limits further evaluation. Resultant canal narrowing and focal cord injury at the T6 level. Findings discussed with neurology roundhouse firer/fireman at the time of dictation. Signed: JR Christiansen Robert MDReport Verified Date/Time: 01/12/2018 00:40:56 Reading Location: [facility] C013Y CT Body Reading Room MR, SPINE, THORACIC, WITHOUT [id number] 00:40:00Acute spine protocolFINAL REPORT MR, SPINE, LUMBAR, WITHOUT CONTRAST , MR, SPINE, THORACIC, WITHOUT CONTRAST, MR, SPINE, CERVICAL, WITHOUT CONTRAST INDICATION: Low back pain, cauda equina syndrome suspected TECHNIQUE: Multiplanar, multisequence unenhanced MR images of the entire spine were obtained. COMPARISON: None FINDINGS:Cervical Spine:A central posterior disc osteophyte complex is present atC3-4. This indents the ventral thecal sac without cord deformity. A smaller, broad-based central disc protrusion is also noted at C5-6. There is no canal or foraminal compromise. The craniocervical junction is preserved. Cervical vertebral bodies demonstrate normal height and signal characteristics. Mild disc desiccation noted at multiple levels. Paraspinal soft tissues are unremarkable. Thoracic spine:Loss of vertebral body height approximately 50% noted at the T6 level. There is expansile extension of osseous/cortical structures narrowing the canal at this level and extending along the posterior elements to involve the spinous processes bilaterally. Areas of T2 prolongation are also present in the T5, T7 and T8 vertebral bodies. No height loss or canal compromise is present at this level. Edemanoted in the thoracic cord at the T6 level without significant expansion superiorly or inferiorly. Remaining portions of the thoracic cord are unremarkable. Paraspinal soft tissues demonstrate bilateral pleural effusions, greater on the left. Aortic caliber is within normal limits. Lumbar spine:The vertebral bodies have normal height, alignment, and signal intensity. The intervertebral discs demonstrate multilevel desiccation, particularly at the lower levels. Small posterior disc protrusions are present without canal compromise. The conus medullaris terminates at the L1 level. The descending nerveroots of the cauda equina are normal. There is no significant foraminal or spinal canal stenosis. Paraspinal soft tissue structures demonstrate fluid distention of the urinary bladder, incompletely. Aortic caliber is within normal limits. There is mild-to- moderate bilateral hydronephrosis. Partially calcified stones are noted incidentally in the gallbladder. IMPRESSION: Compression fracture of theT6 vertebral body approximately 50% with posterior retropulsion and posterior element involvement most compatible with pathologic fracture. Lack of intravenous contrast limits further evaluation. Resultant canal narrowing and focal cord injury at the T6 level. Findings discussed with neurology roundhouse firer/fireman at the time of dictation. Signed: JR Christiansen Robert [facility] Verified Date/Time: 01/12/2018 00:40:56 Reading Location: [facility] B1 C013Y CT Body Reading Room ANG, NEPHROSTOMY, PERC, EXTERNAL [id number] 14:17:00Reason for exam :->both right and left sides. has bilateral hydronephrosis. cervical mass.FINAL REPORT Fluoroscopic guided bilateral nephrostomy tube placement, 01/10/2018. Clinical History: Cervical mass, bilateral hydronephrosis. Modality: Sonography and fluoroscopy. Machine Assistant: Corine. Meat Service Team Member: Jason. Sedation: Versed 4 mg and fentanyl 200 mcg was given intravenously for conscious sedation. Vital signs were monitored throughout the procedure by a nurse, and remained stable. Physician intra-service time was 60 minutes. Estimated Blood Loss: Less than 5 cc. Specimen: None. Fluoro Time: 6.6 min. Dose (Ka,r): 126.7 mGy. Technique: Informed written consent was obtained. Discussion of risks, benefits , and alternatives were made with the patient. The patient expressed understanding and agreed to proceed. All elements maximal sterile barrier technique was utilized for this procedure, including utilization of sterile scrub solution for skin prep, a large sterile sheet to cover the areas of the patient that were not prepped,and hand hygiene, mask, head covering, and sterile gown for performing radiologist and scrub technologist. Local anesthesia was achieved with 1% lidocaine, the left interpolar calyx was visualized with ultrasound. Fluoroscopic visualization was difficult due to overlying bowel contrast. Using ultrasound guidance, a 21-gauge Chiba needle was advanced into the calyx. Contrast injection confirmed placement within the calyx. A 0.018 inch wire was advanced through the needle a curled within the pelvis.The Accustick sheath was advanced over the wire and a Pugh wire was advanced down the ureter. Aftera small skin incision was made, the soft tissue tract was dilated with 7 and 9 Urdu dilators. A 8.5 Urdu drainage catheter was placed into the left renal pelvis. The wire was then removed, and the pigtail of the catheter was locked. The catheter was then secured onto the skin with 2-0 silk. The same technique was used to access the right interpolar calyx for placement of an 8.5 Urdu all-purpose drainage catheter into the right renal pelvis. The patient tolerated the procedure well, without immediate complications. The patient's vital signs remained stable throughout the procedure. Patient disposition: The patient was discharged from the department in stable condition. Impression:Successful and uncomplicated fluoroscopic guided bilateral nephrostomy tube placement with conscious sedation.Signed: Royal Pool MDReport Verified Date/Time: 01/11/2018 14:17:03 Reading Location: [address] Ultrasound Reading Room URINALYSIS W/ REFLEX URINE [id number] 07:52:00 Test Item Value Reference Range Comments COLOR (BEAKER) (test kaoc=417) Yellow CLARITY (BEAKER) (test vfkd=412) Cloudy SPECIFIC GRAVITY UA (BEAKER) (test yfmr=605) 1.012 1.001-1.035 PH UA (BEAKER) (test vkvz=013) 6.0 5.0-8.0 PROTEIN UA (BEAKER) (test zsaj=886) 200 mg/dL Negative GLUCOSE UA (BEAKER) (test mtna=921) Negative Negative KETONES UA (BEAKER) (test biaq=735) Negative Negative BILIRUBIN UA (BEAKER) (test qoqt=124) Negative Negative BLOOD UA (BEAKER) (test cidp=375) Moderate Negative NITRITE UA (BEAKER) (test bplp=698) Negative Negative LEUKOCYTE ESTERASE UA (BEAKER) (test ipyx=055) Large Negative UROBILINOGEN UA (BEAKER) (test yvpa=280) 0.2 mg/dL 0.2-1.0 RBC UA (BEAKER) (test zxwm=636) 52 /HPF WBC UA (BEAKER) (test bsuw=546) > /HPF BACTERIA (BEAKER) (test lcls=314) Many SOURCE(BEAKER) (test hgwq=9780) CBC W/PLT COUNT & AUTO [id number] 06:33:00 Test Item Value Reference Range Comments WHITE BLOOD CELL COUNT (BEAKER) (test gsai=907) 10.1 K/ L 3.5-10.5 RED BLOOD CELL COUNT (BEAKER) (test lief=790) 2.36 M/ L 3.93-5.22 HEMOGLOBIN (BEAKER) (test xfez=237) 8.2 GM/DL 11.2-15.7 HEMATOCRIT (BEAKER) (test gioz=303) 24.8 % 34.1-44.9 MEAN CORPUSCULAR VOLUME (BEAKER) (test nmlv=491) 105.1 fL 79.4-94.8 MEAN CORPUSCULAR HEMOGLOBIN (BEAKER) (test 34.7 pg 25.6-32.2 itmb=167) MEAN CORPUSCULAR HEMOGLOBIN CONC (BEAKER) (test 33.1 GM/DL 32.2-35.5 yyrk=276) RED CELL DISTRIBUTION WIDTH (BEAKER) (test 14.9 % 11.7-14.4 lgaz=407) PLATELET COUNT (BEAKER) (test czce=785) 235 K/CU MM 150-450 MEAN PLATELET VOLUME (BEAKER) (test vtch=715) 8.8 fL 9.4-12.3 NUCLEATED RED BLOOD CELLS (BEAKER) (test 0 /100 WBC 0-0 vlwf=314) NEUTROPHILS RELATIVE PERCENT (BEAKER) (test 76 % ubux=419) LYMPHOCYTES RELATIVE PERCENT (BEAKER) (test 11 % abmf=912) MONOCYTES RELATIVE PERCENT (BEAKER) (test 11 % ikzp=090) EOSINOPHILS RELATIVE PERCENT (BEAKER) (test 1 % bwrx=524) BASOPHILS RELATIVE PERCENT (BEAKER) (test 0 % gwvj=838) NEUTROPHILS ABSOLUTE COUNT (BEAKER) (test 7.74 K/ L 1.56-6.13 togj=917) LYMPHOCYTES ABSOLUTE COUNT (BEAKER) (test 1.13 K/ L 1.18-3.74 lmhq=552) MONOCYTES ABSOLUTE COUNT (BEAKER) (test 1.07 K/ L 0.24-0.36 radm=232) EOSINOPHILS ABSOLUTE COUNT (BEAKER) (test 0.08 K/ L 0.04-0.36 ugpl=551) BASOPHILS ABSOLUTE COUNT (BEAKER) (test 0.02 K/ L 0.01-0.08 jyrp=911) IMMATURE GRANULOCYTES-RELATIVE PERCENT (BEAKER) 1 % 0-1 (test egkn=8642) CALCIUM, [id number] 06:24:00 Test Item Value Reference Range Comments CALCIUM IONIZED (BEAKER) (test lzzw=744) 1.19 mmol/L 1.12-1.27 PH, BLOOD (BEAKER) (test qnab=9521) 7.41 BASIC METABOLIC [id number] 06:16:00 Test Item Value Reference Range Comments SODIUM (BEAKER) (test 131 meq/L 136-145 exzu=312) POTASSIUM (BEAKER) (test 4.1 meq/L 3.5-5.1 klds=230) CHLORIDE (BEAKER) (test 102 meq/L 98-107 zmlp=177) CO2 (BEAKER) (test 20 meq/L 22-29 luqm=116) BLOOD UREA NITROGEN 43 mg/dL 7-21 (BEAKER) (test ucfl=133) CREATININE (BEAKER) (test 2.95 mg/dL 0.57-1.25 yscr=592) GLUCOSE RANDOM (BEAKER) 92 mg/dL 70-105 (test zheu=762) CALCIUM (BEAKER) (test 9.6 mg/dL 8.4-10.2 utgk=301) EGFR (BEAKER) (test 16 mL/min/1.73 sq m ESTIMATED GFR IS NOT kues=2193) ACCURATE CREATININE CLEARANCE IN PREDICTING GLOMERULAR FILTRATION RATE. ESTIMATED GFR IS NOT APPLICABLE FOR DIALYSIS PATIENTS. [id number] 06:14:00 Test Item Value Reference Range Comments PHOSPHORUS (BEAKER) (test xwyu=013) 4.1 mg/dL 2.3-4.7 [id number] 06:14:00 Test Item Value Reference Range Comments MAGNESIUM (BEAKER) (test kjgc=418) 1.7 mg/dL 1.6-2.6 HEPATIC FUNCTION [id number] 06:14:00 Test Item Value Reference Range Comments TOTAL PROTEIN (BEAKER) (test nmqf=357) 6.5 gm/dL 6.0-8.3 ALBUMIN (BEAKER) (test bvds=5867) 3.1 g/dL 3.5-5.0 BILIRUBIN TOTAL (BEAKER) (test ukan=671) 0.3 mg/dL 0.2-1.2 BILIRUBIN DIRECT (BEAKER) (test xcbb=310) 0.2 mg/dL 0.1-0.5 ALKALINE PHOSPHATASE (BEAKER) (test hsyo=317) 108 U/L 40-150 AST (SGOT) (BEAKER) (test udql=309) 17 U/L 5-34 ALT (SGPT) (BEAKER) (test tuzv=401) 15 U/L 6-55 U/S, CORE [id number] 18:15:00Reason for exam:->r/o metastatic cervical caFINAL REPORT Ultrasound guided left chest wall mass biopsy. History: Left chest wall mass concerning for metastasis. Patient with a cervical mass. Modality: Ultrasound Sedation: Versed 1. mg and fentanyl 50 mcg was given intravenously for conscious sedation. Vital signs were monitored throughout the procedure by a nurse, and remained stable. Physician intra-service time was 17 minutes. Machine Assistant: Nicolas Charles MD. Meat Service Team Member: None. Approach : Left anterior chest wall Estimated blood loss: < 5 cc. Specimen: Three 18-gauge core specimens submitted in formalin. Technique: Informed written consent was obtained. Discussion of risks, benefits , and alternatives were made with the patient. The patient expressed understanding and agreed to proceed. A universal timeout was performed prior to starting the procedure. Ultrasound of the patient's left chest wall demonstrated an approximately 4 x 3 cm heterogeneous mass in the inframammary fold and involving one of the ribs. This mass was targeted for ultrasound- guided biopsy. The patient's skin was prepped and draped in the usual sterile fashion. Local anesthesia was achieved with lidocaine 1%. A small skin incision wasmade. Under direct ultrasound guidance an 18-gauge side cutting needle was used to obtain three corebiopsies of the mass. Ultrasound images document the tip of the biopsy needle within the lesion. Thespecimens were submitted to pathology in formalin. The patient tolerated the procedure well without evidence of immediate complication. Impression: Technically successful and uncomplicated core needle biopsy of a left chest wall mass under ultrasound guidance. Signed: Nicolas Charles MDReport Verified Date/Time: 01/10/2018 18:15:15 Reading Location: [facility] P006J Ultrasound Reading Room CT, [id number] 09:59:00FINAL REPORT CT of the abdomen and pelvis, without contrast Clinical History: Hydronephrosis Technique: CT of the abdomen and pelvis is performed without intravenous contrast administration. This exam was performed according to our departmental dose optimization program which includes automated exposure control, adjustment of the mA and/or kV according to patient' s size and/oruse of iterative reconstructive technique. Comparison Film: Correlated with chest CT dated January 07, 2018 Discussion: There is a small left-sided pleural effusion, which is new since the previous chest CT. Left greater than right lower lobe atelectasis/consolidation is also new. Again noted is a left anterior chest wall mass measuring approximately 3 x 4.5 cm, causing destruction of an anterior rib. There is indeterminate 6 mm hypodensity at the right hepatic dome. No biliary ductal dilatation.Gallbladder is unremarkable. Spleen is mildly enlarged. Pancreas, and adrenal glands have a unremarkable unenhanced appearance. There is moderate left hydroureteronephrosis with multifocal cortical scarring. Severe right hydronephrosis and hydroureter, likely due to ureteral obstruction by pelvic mass. In the pelvis, bladder is markedly distended. Uterus is atrophied. There is masslike lesion at the expected location of the cervix, measuring 7.8 x 5.2 cm, encasing both ureters. No clear fat plane isseen between the posterior wall of the bladder and this mass; it also appears to abut the rectum. There is a borderline prominent pelvic sidewall lymph node measuring 1.2 x 0.7 cm. No evidence of bowelobstruction, or abnormal bowel wall thickening. Normal appendix. There is no ascites, or free air. Osseous structures demonstrate minimal degenerative changes. Impression: Large pelvic mass centered inthe expected location of the cervix, abutting the bladder and rectum, invasion cannot be excluded. This mass encases bilateral distal ureters. Moderate left, and severe right hydronephrosis and hydroureter. Multifocal left renal cortical scarring. Indeterminate 6 mm hypodensity at the right hepatic dome. Left anterior chest wall mass, worrisome for metastasis. Small left pleural effusion. Left greater than right lower lobe atelectasis/consolidation. Marked distention of the bladder. Signed: Clem Malik MDReport Verified Date/Time: 2017 09:59:12 Reading Location: [facility] C013Y CT Body Reading Room HEMOGLOBIN [id number] 08:27:00 Test Item Value Reference Range Comments HEMOGLOBIN A1C (BEAKER) (test telf=583) 4.9 % 4.3-6.1 URINALYSIS W/ [id number] 04:00:00 Test Item Value Reference Range Comments COLOR (BEAKER) (test dzwv=174) Light Yellow CLARITY (BEAKER) (test cbac=376) Cloudy SPECIFIC GRAVITY UA (BEAKER) (test lkqf=546) 1.011 1.001-1.035 PH UA (BEAKER) (test envn=684) 5.5 5.0-8.0 PROTEIN UA (BEAKER) (test ihkp=825) 50 mg/dL Negative GLUCOSE UA (BEAKER) (test jehc=246) Negative Negative KETONES UA (BEAKER) (test ipkd=508) Negative Negative BILIRUBIN UA (BEAKER) (test oiqz=294) Negative Negative BLOOD UA (BEAKER) (test grym=050) Moderate Negative NITRITE UA (BEAKER) (test actr=609) Negative Negative LEUKOCYTE ESTERASE UA (BEAKER) (test mndv=089) Large Negative UROBILINOGEN UA (BEAKER) (test pebx=690) 0.2 mg/dL 0.2-1.0 RBC UA (BEAKER) (test kqxa=399) 12 /HPF WBC UA (BEAKER) (test djni=482) > /HPF BACTERIA (BEAKER) (test bhnm=216) Many MUCUS (BEAKER) (test duki=6956) Occasional SOURCE(BEAKER) (test nggk=3767) Urine, Voided BASIC METABOLIC [id number] 03:59:00 Test Item Value Reference Range Comments SODIUM (BEAKER) (test 132 meq/L 136-145 jaam=302) POTASSIUM (BEAKER) (test 4.0 meq/L 3.5-5.1 kjqo=736) CHLORIDE (BEAKER) (test 100 meq/L 98-107 plkq=433) CO2 (BEAKER) (test 20 meq/L 22-29 hdan=063) BLOOD UREA NITROGEN 48 mg/dL 7-21 (BEAKER) (test jqvw=633) CREATININE (BEAKER) (test 3.59 mg/dL 0.57-1.25 arqc=184) GLUCOSE RANDOM (BEAKER) 96 mg/dL 70-105 (test gedm=149) CALCIUM (BEAKER) (test 9.7 mg/dL 8.4-10.2 fcze=128) EGFR (BEAKER) (test 13 mL/min/1.73 sq m ESTIMATED GFR IS NOT wriz=0040) ACCURATE CREATININE CLEARANCE IN PREDICTING GLOMERULAR FILTRATION RATE. ESTIMATED GFR IS NOT APPLICABLE FOR DIALYSIS PATIENTS. [id number] 03:37:00 Test Item Value Reference Range Comments PHOSPHORUS (BEAKER) (test qmkt=765) 5.0 mg/dL 2.3-4.7 [id number] 03:37:00 Test Item Value Reference Range Comments MAGNESIUM (BEAKER) (test aeif=138) 2.0 mg/dL 1.6-2.6 HEPATIC FUNCTION [id number] 03:37:00 Test Item Value Reference Range Comments TOTAL PROTEIN (BEAKER) (test idll=621) 6.9 gm/dL 6.0-8.3 ALBUMIN (BEAKER) (test flwf=8438) 3.3 g/dL 3.5-5.0 BILIRUBIN TOTAL (BEAKER) (test cpje=706) 0.3 mg/dL 0.2-1.2 BILIRUBIN DIRECT (BEAKER) (test eieg=495) 0.2 mg/dL 0.1-0.5 ALKALINE PHOSPHATASE (BEAKER) (test rjio=988) 85 U/L 40-150 AST (SGOT) (BEAKER) (test fjfn=784) 19 U/L 5-34 ALT (SGPT) (BEAKER) (test cyeb=536) 18 U/L 6-55 CBC W/PLT COUNT & AUTO [id number] 03:23:00 Test Item Value Reference Range Comments WHITE BLOOD CELL COUNT (BEAKER) (test ozsh=047) 10.6 K/ L 3.5-10.5 RED BLOOD CELL COUNT (BEAKER) (test sibl=778) 2.57 M/ L 3.93-5.22 HEMOGLOBIN (BEAKER) (test kpdk=773) 8.9 GM/DL 11.2-15.7 HEMATOCRIT (BEAKER) (test zlkj=810) 27.3 % 34.1-44.9 MEAN CORPUSCULAR VOLUME (BEAKER) (test slki=215) 106.2 fL 79.4-94.8 MEAN CORPUSCULAR HEMOGLOBIN (BEAKER) (test 34.6 pg 25.6-32.2 ibsi=600) MEAN CORPUSCULAR HEMOGLOBIN CONC (BEAKER) (test 32.6 GM/DL 32.2-35.5 pecw=584) RED CELL DISTRIBUTION WIDTH (BEAKER) (test 15.4 % 11.7-14.4 lsyg=778) PLATELET COUNT (BEAKER) (test nmfo=490) 247 K/CU MM 150-450 MEAN PLATELET VOLUME (BEAKER) (test ikmt=266) 8.6 fL 9.4-12.3 NUCLEATED RED BLOOD CELLS (BEAKER) (test 0 /100 WBC 0-0 skwc=159) NEUTROPHILS RELATIVE PERCENT (BEAKER) (test 71 % ptxa=982) LYMPHOCYTES RELATIVE PERCENT (BEAKER) (test 16 % tyba=983) MONOCYTES RELATIVE PERCENT (BEAKER) (test 11 % dhwx=520) EOSINOPHILS RELATIVE PERCENT (BEAKER) (test 1 % zkoy=683) BASOPHILS RELATIVE PERCENT (BEAKER) (test 0 % xfaz=868) NEUTROPHILS ABSOLUTE COUNT (BEAKER) (test 7.50 K/ L 1.56-6.13 whwj=239) LYMPHOCYTES ABSOLUTE COUNT (BEAKER) (test 1.69 K/ L 1.18-3.74 kyic=289) MONOCYTES ABSOLUTE COUNT (BEAKER) (test 1.13 K/ L 0.24-0.36 batv=479) EOSINOPHILS ABSOLUTE COUNT (BEAKER) (test 0.11 K/ L 0.04-0.36 qmte=706) BASOPHILS ABSOLUTE COUNT (BEAKER) (test 0.03 K/ L 0.01-0.08 uzzq=354) IMMATURE GRANULOCYTES-RELATIVE PERCENT (BEAKER) 1 % 0-1 (test dmxz=2977) VITAMIN [id number] 03:17:00 Test Item Value Reference Range Comments VITAMIN B12 (BEAKER) (test exev=217) 770 pg/mL 213-816 [id number] 03:17:00 Test Item Value Reference Range Comments FERRITIN (BEAKER) (test felo=508) 308 ng/mL 5-275 FOLATE, [id number] 03:17:00 Test Item Value Reference Range Comments FOLATE (BEAKER) (test erlk=973) 10.9 ng/mL >=7.0 IRON, TIBC, % SAT. (WITHOUT FERRITIN)2018-01-10 02:43:00 Test Item Value Reference Range Comments IRON (BEAKER) (test oorq=365) 30 ug/dL 40-160 TOTAL IRON BINDING CAPACITY (BEAKER) (test 234 ug/dL 250-450 uyan=793) IRON % SATURATION (2) (BEAKER) (test vzwy=6818) 13 % 20-55 RAD, CHEST, 1 VIEW, NON [id number] 01:42:00Reason for exam:->chest painIs the patient ?->NoShould this be performed at the bedside?-> YesFINAL REPORT Chest one view. Clinical history: chest pain Comparison: None. Technique: A single frontal view of the chest was obtained. Findings/impression:The heart is normal size. The aorta is atherosclerotic. There is a small left pleural effusion. There is airspace opacityin the left lower lobe which may represent pneumonia and/or atelectasis. There is no pneumothorax. Signed: Cesar Santamaria MDReport Verified Date/Time: 01/10/2018 01:42:41 Reading Location: [address] Body Reading Room BASIC METABOLIC [id number] 22:03:00 Test Item Value Reference Range Comments SODIUM (BEAKER) (test 130 meq/L 136-145 lowd=070) POTASSIUM (BEAKER) (test 4.1 meq/L 3.5-5.1 Specimen slightly iiso=060) hemolyzed CHLORIDE (BEAKER) (test 99 meq/L 98-107 onzf=747) CO2 (BEAKER) (test 20 meq/L 22-29 ulby=048) BLOOD UREA NITROGEN 50 mg/dL 7-21 (BEAKER) (test zurg=971) CREATININE (BEAKER) (test 3.63 mg/dL 0.57-1.25 Specimen slightly zobp=964) hemolyzed GLUCOSE RANDOM (BEAKER) 162 mg/dL 70-105 (test ejet=033) CALCIUM (BEAKER) (test 9.3 mg/dL 8.4-10.2 evjw=715) EGFR (BEAKER) (test 13 mL/min/1.73 sq m ESTIMATED GFR IS NOT hzxt=3498) ACCURATE CREATININE CLEARANCE IN PREDICTING GLOMERULAR FILTRATION RATE. ESTIMATED GFR IS NOT APPLICABLE FOR DIALYSIS PATIENTS. HEPATIC FUNCTION [id number] 21:55:00 Test Item Value Reference Range Comments TOTAL PROTEIN (BEAKER) (test 7.1 gm/dL 6.0-8.3 Specimen slightly hemolyzed kklu=785) ALBUMIN (BEAKER) (test 3.3 g/dL 3.5-5.0 Specimen slightly hemolyzed huno=4034) BILIRUBIN TOTAL (BEAKER) (test 0.3 mg/dL 0.2-1.2 Specimen slightly hemolyzed gqxk=432) BILIRUBIN DIRECT (BEAKER) (test 0.1 mg/dL 0.1-0.5 Specimen slightly hemolyzed mkth=898) ALKALINE PHOSPHATASE (BEAKER) 87 U/L 40-150 (test iarn=390) AST (SGOT) (BEAKER) (test 26 U/L 5-34 Specimen slightly hemolyzed vkgf=247) ALT (SGPT) (BEAKER) (test 16 U/L 6-55 Specimen slightly hemolyzed wpvf=979) PROTHROMBIN [id number] 21:28:00 Test Item Value Reference Range Comments PROTIME (BEAKER) (test fynd=372) 14.8 seconds 11.7-14.7 INR (BEAKER) (test mkdl=322) 1.2 <=5.9 RECOMMENDED COUMADIN/WARFARIN INR THERAPY RANGESSTANDARD DOSE: 2.0 - 3.0 Includes: PROPHYLAXIS forvenous thrombosis, systemic embolization; TREATMENT for venous thrombosis and/or pulmonary embolus.HIGH RISK: Target INR is 2.5-3.5 for patients with mechanical heart valves.CBC W/PLT COUNT & AUTO [id number] 21:24:00 Test Item Value Reference Range Comments WHITE BLOOD CELL COUNT (BEAKER) (test rveo=122) 12.7 K/ L 3.5-10.5 RED BLOOD CELL COUNT (BEAKER) (test uqdk=844) 2.59 M/ L 3.93-5.22 HEMOGLOBIN (BEAKER) (test dpsc=064) 9.1 GM/DL 11.2-15.7 HEMATOCRIT (BEAKER) (test ncob=005) 27.0 % 34.1-44.9 MEAN CORPUSCULAR VOLUME (BEAKER) (test jbhe=224) 104.2 fL 79.4-94.8 MEAN CORPUSCULAR HEMOGLOBIN (BEAKER) (test 35.1 pg 25.6-32.2 xyic=003) MEAN CORPUSCULAR HEMOGLOBIN CONC (BEAKER) (test 33.7 GM/DL 32.2-35.5 kxep=491) RED CELL DISTRIBUTION WIDTH (BEAKER) (test 15.5 % 11.7-14.4 vtys=738) PLATELET COUNT (BEAKER) (test fdhi=209) 244 K/CU MM 150-450 MEAN PLATELET VOLUME (BEAKER) (test lgce=123) 8.7 fL 9.4-12.3 NUCLEATED RED BLOOD CELLS (BEAKER) (test 0 /100 WBC 0-0 mowp=919) NEUTROPHILS RELATIVE PERCENT (BEAKER) (test 84 % jgup=002) LYMPHOCYTES RELATIVE PERCENT (BEAKER) (test 8 % nllx=121) MONOCYTES RELATIVE PERCENT (BEAKER) (test 7 % inrl=351) EOSINOPHILS RELATIVE PERCENT (BEAKER) (test 0 % prmq=859) BASOPHILS RELATIVE PERCENT (BEAKER) (test 0 % kzsy=203) NEUTROPHILS ABSOLUTE COUNT (BEAKER) (test 10.58 K/ L 1.56-6.13 kpvd=222) LYMPHOCYTES ABSOLUTE COUNT (BEAKER) (test 0.97 K/ L 1.18-3.74 kytq=792) MONOCYTES ABSOLUTE COUNT (BEAKER) (test 0.89 K/ L 0.24-0.36 qjkp=696) EOSINOPHILS ABSOLUTE COUNT (BEAKER) (test 0.04 K/ L 0.04-0.36 ardb=188) BASOPHILS ABSOLUTE COUNT (BEAKER) (test 0.03 K/ L 0.01-0.08 lhul=372) IMMATURE GRANULOCYTES-RELATIVE PERCENT (BEAKER) 1 % 0-1 (test cxiv=7299)
[2018-03-30] MEDS ORDERED: FENTANYL CITR 100 MCG/2 ML ONE ×2 (16:32→21:08)
--- NOTE | 2018-03-30 16:37 | RAD REPORT ---
EXAM DESCRIPTION: CT - Thorax Wo Con - 03/30/2018 4:00 pm CLINICAL HISTORY: Fall, left-sided rib and scapula pain, history of metastatic cervical carcinoma COMPARISON: CT chest January 07 TECHNIQUE: Axial 5 mm thick images of the chest were obtained without IV contrast. All CT scans are performed using dose optimization technique as appropriate and may include automated exposure control or mA/KV adjustment according to patient size. FINDINGS: Scarring and atelectasis are present in the right hemithorax. No acute left lung parenchym al process seen. There is complete left lower lobe atelectasis and most of the left upper lobe is ate lectatic. The aerated portion of the left upper lobe shows no acute infiltrate. Pleural effusion fill s the majority of the left hemithorax. Attenuation value of 12 Hounsfield units is consistent with pl eural fluid. Hemothorax is not suspected. No right-sided pleural effusion. No pneumothorax. No abnormal mediastinal or hilar masses or lymphadenopathy seen. No gross aortic or pulmonary artery finding suspected. No pericardial thickening or effusion. A few small nonspecific axillary lymph nodes noted on the left. There is some contusion and edema cheryle nge in the subcutaneous fatty tissues along the lower left axilla and lateral lower left chest. Rib fracture related to fall is not identified. Anterior left fifth rib is fractured but this is maile eved the be related to a pathologic fracture. There is an anterior chest wall mass between the anteri or left fifth and sixth ribs that has been seen previously. There are bone loss changes to the anteri or aspect of the left sixth rib. A small portion of the acromion and AC joint fall outside of the field of view. No left scapula fract ure seen. No dislocation of the left humerus. Hardware is in place T5-T7 as a pathologic fracture sit e. Liver metastatic lesions in the T3 and T4 bodies. Metastatic lesions are present in T8 and T9. Me tastatic lesion with bone destruction is present in the sternum. This is new from December. Anterior left seventh rib metastatic lesion is also present. There is metastatic lesion in the posterior left sixth and seventh ribs at the costovertebral junction. Limited upper abdomen imaging shows a posterior right lobe metastatic lesion. Liver is not adequatel y assessed on this study. IMPRESSION: Large left pleural effusion filling almost the entire left hemithorax. There is complete left lower lobe atelectasis and most of the left upper lobe. Fluid density does not suggest hemothor ax. Contusion changes to the lateral left axilla and chest without posttraumatic rib fracture. Scapula is not fractured. A small portion of the acromion and AC joint fall outside of the field of view. Patient has extensive metastatic disease in the spine, ribcage and sternum. This is a progressive pro cess since December 2017. Metastatic liver lesion only partially imaged on this study.
[2018-03-30 19:08] LABS: Absolute Lymphocytes (CBC) 1.9 K/uL (0.7-4.9); Absolute Monocytes 1.2 K/uL (0.1-1.3); Absolute Neutrophil 16.7 K/uL (1.8-8.0); Basophils % 0.3 % (0-1.3); Eosinophils % 0.1 % (0-4.4); Hematocrit 22.9 % (36.0-45.0); Lymphocytes % 9.6 % (15.3-44.8); MCH 30.4 pg (27.0-35.0); MCV 90.9 fL (80-100); MPV 6.2 fL (7.6-11.3); Monocytes % 6.2 % (3.3-12.3); RBC Red Blood Cell Count 2.52 M/uL (3.86-4.86)
[2018-03-30 19:14] LABS: Protime INR 1.12
[2018-03-30 19:20] LABS: Potassium 3.8 mmol/L (3.5-5.1)
[2018-03-30 20:02] LABS: Anisocytosis 1+; Blood Morphology Comment NOT SEEN (NOT SEEN); Platelet Estimate INCR; Urine White Blood Cell Casts OK
[2018-03-30] MEDS ORDERED: CEFTRIAXONE 1000 MG/VIAL ONE (20:40)
[2018-03-30] MEDS ORDERED: AZITHROMYCIN 500 MG/250 ML BAG ONE (20:41)
[2018-03-30] MEDS ORDERED: NA CHLORIDE 0.9% 50 ML IV ONE (20:41)
--- NOTE | 2018-03-30 21:19 | EDPHYS ---
Physician Documentation [facility] Name: Trixie Richardson Age: 57 yrs Sex: Female : 1960 Arrival Date: 03/30/2018 Time: 15:19 Bed 16 Private MD: ED Physician Nael Deleon HPI: 03/30 15:54 This 57 yrs old Female presents to ER via EMS with complaints of Rib Pain, snw Back Pain. 15:54 Onset: The symptoms/episode began/occurred 1.5 week(s) ago. Associated signs and snw symptoms: The patient has no apparent associated signs or symptoms. Modifying factors: The patient symptoms are alleviated by nothing. The patient has experienced similar episodes in the past, multiple times, pt chronically ill. The patient has been recently seen by a physician:. Historical: - Allergies: 15:24 Codeine; sg - Home Meds: 20:20 amlodipine 5 mg tab 1 tab once daily [Active]; cc3 - PMHx: 15:24 Hypertension; Cervical Cancer- Mets to Rib and T Spine; sg - PSHx: 15:24 ; right knee; sg - Immunization history:: Adult Immunizations up to date. - Social history:: Smoking status: Patient/guardian denies using tobacco. - Ebola Screening: : Patient negative for fever greater than or equal to 101.5 degrees Fahrenheit, and additional compatible Ebola Virus Disease symptoms Patient denies exposure to infectious person Patient denies travel to an Ebola-affected area in the 21 days before illness onset No symptoms or risks identified at this time. ROS: 15:53 Constitutional: Negative for fever, chills, and weight loss, Eyes: Negative for injury, snw pain, redness, and discharge, ENT: Negative for injury, pain, and discharge, Neck: Negative for injury, pain, and swelling, Respiratory: Negative for shortness of breath, cough, wheezing, and pleuritic chest pain, Abdomen/GI: Negative for abdominal pain, nausea, vomiting, diarrhea, and constipation, Back: Negative for injury and pain, : Negative for injury, bleeding, discharge, and swelling, MS/Extremity: Negative for injury and deformity, Skin: Negative for injury, rash, and discoloration, Neuro: Negative for headache, weakness, numbness, tingling, and seizure. 15:53 Cardiovascular: Positive for chest wall pain, right chest wall tenderness. Exam: 15:47 Head/Face: Normocephalic, atraumatic. snw 15:47 ENT: Nares patent. No nasal discharge, no septal abnormalities noted. Tympanic membranes are normal and external auditory canals are clear. Oropharynx with no redness, swelling, or masses, exudates, or evidence of obstruction, uvula midline. Mucous membranes moist. Neck: Trachea midline, no thyromegaly or masses palpated, and no cervical lymphadenopathy. Supple, full range of motion without nuchal rigidity, or vertebral point tenderness. No Meningismus. Chest/axilla: Normal chest wall appearance and motion. tender with no deformity to right upper and lateral chest wall. No lesions are appreciated, removal of port recently/healed surgical incision over right clavicle 15:47 Respiratory: Lungs have equal breath sounds bilaterally, clear to auscultation and percussion. No rales, rhonchi or wheezes noted. No increased work of breathing, no retractions or nasal flaring. Abdomen/GI: Soft, non-tender, with normal bowel sounds. No distension or tympany. No guarding or rebound. No evidence of tenderness throughout. Back: No spinal tenderness. No costovertebral tenderness. Full range of motion. Skin: Warm, dry with normal turgor. Normal color with no rashes, no lesions, and no evidence of cellulitis. MS/ Extremity: Pulses equal, no cyanosis. Neurovascular intact. Full, normal range of motion. Neuro: Awake and alert, GCS 15, oriented to person, place, time, and situation. Cranial nerves II-XII grossly intact. Motor strength 5/5 in all extremities. Sensory grossly intact. Cerebellar exam normal. Normal gait. 15:47 Constitutional: The patient appears alert, awake, frail, uncomfortable. 15:47 Eyes: Corneas: are normal, Sclera: icterus. 15:47 Cardiovascular: Rate: normal, Rhythm: irregular. Vital Signs: 15:20 BP 115 / 70; Pulse 72; Resp 17; Temp 97.7; Pulse Ox 96% on R/A; Pain 6/10; sg 16:25 BP 112 / 74; Pulse 77; Resp 17; Pulse Ox 97% on R/A; Pain 6/10; sg 19:30 BP 136 / 88; Pulse 111; Resp 20 S; Pulse Ox 96% on R/A; cc3 20:26 BP 121 / 71; Pulse 108; Resp 20 S; Pulse Ox 99% on 0.5 lpm NC; cc3 21:40 BP 123 / 77; Pulse 105; Resp 19 S; Pulse Ox 99% on 0.5 lpm NC; cc3 22:15 Pulse 103; Resp 20 S; Pulse Ox 100% on 0.5 lpm NC; cc3 MDM: 15:34 Patient medically screened. snw 16:08 Data reviewed: vital signs, nurses notes. Data interpreted: Pulse oximetry: on room air snw is 96 %. Interpretation: normal. Counseling: I had a detailed discussion with the patient and/or guardian regarding: the historical points, exam findings, and any diagnostic results supporting the discharge/admit diagnosis, radiology results, the need for outpatient follow up, for definitive care. ED course: needs f/u for eval of fitzpatrick and nephrostomy tubes. 18:09 Physician consultation: Mariama Cesar MD was called at 18:00, was contacted at 18:00, snw would like consultation with Dr. Dr. Morales, who is not available this weekend. Recommends transfer. Spoke with Patient about limited options at this facility. Will be able to have IR and maybe drain a bit of malignant effusion with resultant discharge and follow up with other specialties. Pt unable to make decision if she wants admission to this facility or transfer without her . She will discuss with him when he returns and let us know if she wishes admission or transfer.. 18:13 Transition of care: After a detail discussion of the patient's case, care is snw transferred to Nael Deleon MD. 03/30 17:37 Order name: CBC with Diff; Complete Time: 20:18 snw 03/30 17:37 Order name: Chem 7; Complete Time: 19:43 snw 03/30 17:37 Order name: TS; Complete Time: 20:18 snw 03/30 17:37 Order name: PT-INR; Complete Time: 19:43 snw 03/30 17:37 Order name: Ptt, Activated; Complete Time: 19:43 snw 03/30 19:28 Order name: CBC Smear Scan; Complete Time: 20:18 EDMS 03/30 15:34 Order name: CT Chest Wo Con; Complete Time: 17:05 snw Administered Medications: 16:20 Drug: fentaNYL (PF) 50 mcg {Note: L Ventrogluteal.} Route: IM; Site: Other; sg 20:40 Drug: Rocephin - (cefTRIAXone) 1 grams {Note: left PICC Red port.} Route: IVPB; Infused cc3 Over: 30 mins; Site: PICC; 21:00 Follow up: Response: No adverse reaction; IV Status: Completed infusion; IV Intake: [id number] 21:00 Drug: fentaNYL (PF) 50 mcg {Note: left PICC red port.} Route: IVP; Site: PICC; cc3 21:40 Follow up: Response: No adverse reaction; Pain is decreased cc3 21:08 Drug: AZITHromycin 500 mg {Note: left PICC Red port.} Route: IVPB; Infused Over: 1 hrs; cc3 Site: PICC; 22:15 Follow up: Response: No adverse reaction; IV Status: Completed infusion; IV Intake: cc3 250ml Disposition: 03/31 00:04 Co-signature as Attending Physician, Nael Deleon MD I agree with the assessment and kdr plan of care. Disposition: 03/30/18 21:[address] [facility]. Diagnosis are Malignant pleural effusion, left, Back pain, Metastatic cervical cancer. - Reason for transfer: Higher level of care. - Accepting physician is Changela. - Condition is Stable. - Problem is an ongoing problem. - Symptoms have worsened. Signatures: Dispatcher [employer] Jean Houston RN RN sg Rittger, Kevin, MD MD kdr Verónica Cox, DYE MAKER-C DYE MAKER-Csnw Noam Ceballos MD MD ps1 Myrna Trevizo cc3 Corrections: (The following items were deleted from the chart) 03/30 22:28 21:18 03/30/2018 21:[address] [facility]. Diagnosis is cc3 Malignant pleural effusion, left; Back pain; Metastatic cervical cancer. Reason for transfer: Higher level of care. Accepting physician is Changela. Condition is Stable. Problem is an ongoing problem. Symptoms have worsened. ps1
--- NOTE | 2018-03-30 21:19 | ER ---
Nurse's Notes [facility] Name: Trixie Richardson Age: 57 yrs Sex: Female : 1960 Arrival Date: 03/30/2018 Time: 15:19 Bed 16 Private MD: Diagnosis: Malignant pleural effusion, left;Back pain;Metastatic cervical cancer Presentation: 03/30 15:20 Presenting complaint: EMS states: pt was attempting to transfer herself with the sg assistance from spouse, became off balance and fell from standing, C/O pain to the left rib area, worsening with deep breathing, and reports pain to the left scapular area as well. Denies head injury or LOC, reports currently being treated for Cervical Cancer with the last CHEMO tx 5 weeks ago, PICC to [facility]. Transition of care: patient was not received from another setting of care. Onset of symptoms was March 30, 2018. Risk Assessment: Do you want to hurt yourself or someone else? Patient reports no desire to harm self or others. Initial Sepsis Screen: Does the patient meet any 2 criteria? No. Patient's initial sepsis screen is negative. Does the patient have a suspected source of infection? No. Patient's initial sepsis screen is negative. Care prior to arrival: None. 15:20 Method Of Arrival: EMS: [facility] sg 15:20 Acuity: CLEMENTE 3 sg Historical: - Allergies: 15:24 Codeine; sg - Home Meds: 20:20 amlodipine 5 mg tab 1 tab once daily [Active]; cc3 - PMHx: 15:24 Hypertension; Cervical Cancer- Mets to Rib and T Spine; sg - PSHx: 15:24 ; right knee; sg - Immunization history:: Adult Immunizations up to date. - Social history:: Smoking status: Patient/guardian denies using tobacco. - Ebola Screening: : Patient negative for fever greater than or equal to 101.5 degrees Fahrenheit, and additional compatible Ebola Virus Disease symptoms Patient denies exposure to infectious person Patient denies travel to an Ebola-affected area in the 21 days before illness onset No symptoms or risks identified at this time. Screenin:20 Abuse screen: Denies threats or abuse. Denies injuries from another. Nutritional sg screening: No deficits noted. Tuberculosis screening: No symptoms or risk factors identified. Never had TB. Fall Risk None identified. Assessment: 16:20 General: Appears in no apparent distress. uncomfortable, ill, slender, well groomed, sg well developed, well nourished, Behavior is calm, cooperative, appropriate for age. Pain: Complains of pain in left scapular area, thoracic area, left lateral posterior chest and left lateral anterior chest Quality of pain is described as aching. Neuro: Level of Consciousness is awake, alert, obeys commands, Oriented to person, place, time, situation, Sort Operations Supervisor are equal bilaterally Moves all extremities. Full function Gait is steady, Speech is normal, Facial symmetry appears normal. Cardiovascular: Patient's skin is warm and dry. Chest pain is denied. Respiratory: Airway is patent Respiratory effort is even, unlabored, Respiratory pattern is regular, symmetrical, Breath sounds are diminished in left posterior lower lobe. GI: No signs and/or symptoms were reported involving the gastrointestinal system. : No signs and/or symptoms were reported regarding the genitourinary system. EENT: No signs and/or symptoms were reported regarding the EENT system. Derm: Skin is pink, warm \T\ dry. Musculoskeletal: Circulation, motion, and sensation intact. Range of motion: intact in all extremities. 17:27 Reassessment: Patient appears in no apparent distress at this time. Patient and/or sg family updated on plan of care and expected duration. Pain level reassessed. radiology results are back at this time, pt reports no change in condition, pt family remains at bedside at this time, pt stated understanding, awaiting Verónica [employer] EQUIP[employer] ELECTRICIAN to update pt and pt family on results. 18:25 Reassessment: Patient appears in no apparent distress at this time. Patient and/or sg family updated on plan of care and expected duration. Pain level reassessed. awaiting to return for decision to be made to admit at this time, pt stated understanding Patient states symptoms have not improved. 19:01 Reassessment: Patient appears in no apparent distress at this time. Patient and/or sg family updated on plan of care and expected duration. Pain level reassessed. attempt to obtain serum blood sample from pt PICC line, PICC flushes well with 20 CC NS per purple and ports, but no blood obtained. LAB draw from pt R AC area, blood sent to lab. Pt back at bedside at this time, pt requesting the pt to be admitted here to this facility as opposed to transfer to [facility]. 19:15 Reassessment: Patient appears in no apparent distress at this time. Patient and/or cc3 family updated on plan of care and expected duration. Pain level reassessed. Patient is alert, oriented x 3, equal unlabored respirations, skin warm/dry/pink. Received this female patient from morning shift DONAVAN Pena as a case of rib and back pain, known case of Ca Cervix. With PICC line at the left upper arm noted. With indwelling fitzpatrick's catheter Fr. 16 and nephrostomy tubes on bilateral back attached to urine drainage bag noted. 20:21 Reassessment: Patient appears in no apparent distress at this time. Patient and/or cc3 family updated on plan of care and expected duration. Pain level reassessed. Patient is alert, oriented x 3, equal unlabored respirations, skin warm/dry/pink. Patient's called and said the patient is taking Amlodipine 5 mg 1 tab daily and that she's not taking Lisinopril oral anymore. Drained 400 mL of dark yellow colored urine output from the indwelling fitzpatrick's catheter. 21:18 Reassessment: Patient appears in no apparent distress at this time. Patient and/or cc3 family updated on plan of care and expected duration. Pain level reassessed. Patient is alert, oriented x 3, equal unlabored respirations, skin warm/dry/pink. Patient for transfer to [facility] Room 923, report handed over to DONAVAN Almanzar for continuity of care. 22:10 Reassessment: Patient appears in no apparent distress at this time. Patient and/or cc3 family updated on plan of care and expected duration. Pain level reassessed. Patient is alert, oriented x 3, equal unlabored respirations, skin warm/dry/pink. Patient passed moderate amount of soft formed brown colored stool, perineal care and diaper changed done. [facility] came and fetched the patient for transfer to [facility]. 22:25 Reassessment: Patient appears in no apparent distress at this time. Patient and/or cc3 family updated on plan of care and expected duration. Pain level reassessed. Patient is alert, oriented x 3, equal unlabored respirations, skin warm/dry/pink. Patient left ER vitally stable by ground EMS stretcher for transfer. Vital Signs: 15:20 BP 115 / 70; Pulse 72; Resp 17; Temp 97.7; Pulse Ox 96% on R/A; Pain 6/10; sg 16:25 BP 112 / 74; Pulse 77; Resp 17; Pulse Ox 97% on R/A; Pain 6/10; sg 19:30 BP 136 / 88; Pulse 111; Resp 20 S; Pulse Ox 96% on R/A; cc3 20:26 BP 121 / 71; Pulse 108; Resp 20 S; Pulse Ox 99% on 0.5 lpm NC; cc3 21:40 BP 123 / 77; Pulse 105; Resp 19 S; Pulse Ox 99% on 0.5 lpm NC; cc3 22:15 Pulse 103; Resp 20 S; Pulse Ox 100% on 0.5 lpm NC; cc3 ED Course: 15:19 Patient arrived in ED. sg 15:19 Jean Terrazas, RN is Primary Nurse. sg 15:22 Triage completed. sg 15:24 Arm band placed on. sg 15:33 Verónica Cox FNP-C is PHCP. snw 15:33 Nael Deleon MD is Attending Physician. snw 15:40 Patient has correct armband on for positive identification. Bed in low position. Call sg light in reach. Pulse ox on. NIBP on. 15:[address] via stretcher. eh 16:01 CT Chest Wo Con In Process Unspecified. EDMS 16:34 Warm blanket given. sg 16:37 Awaiting radiology results. sg 19:02 Initial lab(s) drawn, by me, sent to lab. T\T\S collected, blood band applied to patient. sg 22:10 No provider procedures requiring assistance completed. Patient transferred, IV remains cc3 in place. Administered Medications: 16:20 Drug: fentaNYL (PF) 50 mcg {Note: L Ventrogluteal.} Route: IM; Site: Other; sg 20:40 Drug: Rocephin - (cefTRIAXone) 1 grams {Note: left PICC Red port.} Route: IVPB; Infused cc3 Over: 30 mins; Site: PICC; 21:00 Follow up: Response: No adverse reaction; IV Status: Completed infusion; IV Intake: 47ryoc3 21:00 Drug: fentaNYL (PF) 50 mcg {Note: left PICC red port.} Route: IVP; Site: PICC; cc3 21:40 Follow up: Response: No adverse reaction; Pain is decreased cc3 21:08 Drug: AZITHromycin 500 mg {Note: left PICC Red port.} Route: IVPB; Infused Over: 1 hrs; cc3 Site: PICC; 22:15 Follow up: Response: No adverse reaction; IV Status: Completed infusion; IV Intake: cc3 250ml Intake: 21:00 IV: 50ml; Total: 50ml. cc3 22:15 IV: 250ml; Total: 300ml. cc3 Outcome: 21:18 ER care complete, transfer ordered by MD. ps1 22:10 Transferred by [facility] to [facility], [facility], Transfer form completed. cc3 22:10 Condition: stable 22:10 Instructed on the need for transfer, Demonstrated understanding of instructions. 22:28 Patient left the ED. cc3 Signatures: Dispatcher [employer] EDMS Jean Terrazas RN RN sg Therrien, Shelly, MMI TEACHER-C MMI TEACHER-Csnw Rosa, [facility] Noam Ceballos MD MD ps1 Cordel, Charlene cc3 Corrections: (The following items were deleted from the chart) 16:01 15:40 Patient moved to [facility] 20:23 19:30 BP 136 / 88; Pulse 113bpm; Resp 20bpm; Spontaneous; Pulse Ox 96% RA; cc3 cc3 21:17 20:26 Pulse 108bpm; Resp 20bpm; Spontaneous; Pulse Ox 99% 0.5 lpm Nasal Cannula; cc3 cc3 23:09 20:21 Reassessment: Patient appears in no apparent distress at this time. Patient cc3 and/or family updated on plan of care and expected duration. Pain level reassessed. Patient is alert, oriented x 3, equal unlabored respirations, skin warm/dry/pink. Patient's called and said the patient is taking Amlodipine 5 mg 1 tab daily and that she's not taking Lisinopril oral anymore. cc3 23:11 19:15 Reassessment: Patient appears in no apparent distress at this time. Patient cc3 and/or family updated on plan of care and expected duration. Pain level reassessed. Patient is alert, oriented x 3, equal unlabored respirations, skin warm/dry/pink. Received this female patient from morning shift DONAVAN Pena as a case of rib and back pain, known case of Ca Cervix. With PICC line at the left upper arm noted. cc3
== END 2018-03-30 22:28 | disposition short-term general hospital (02) ==
LOC: ER 15:17
DX: C53.9 Malignant neoplasm of cervix uteri, unspecified (principal); C79.51 Secondary malignant neoplasm of bone; J91.0 Malignant pleural effusion; I10 Essential (primary) hypertension; Z79.899 Other long term (current) drug therapy
CPT/HCPCS: 36415; 71250; 80048; 85025; 85610; 85730; 86850; 86900; 86901; 96365; 96367; 96372; 96375; 99285; J0456; J3010